=== PATIENT | male | born 1960 | race Caucasian/White ===

== ENCOUNTER → 2016-12-13 | Outpatient (CLI) | payer OTHER ==
[2016-12-13 11:59] LABS: BASO % 0.9 %; BASO ABS # 0.07 K/uL (0-0.2); COMPLETE YES; EOS % 2.4 %; HEMATOCRIT 45.8 % (42-52); IG% 0.7 %; LYMPH % 29.4 %; LYMPH ABS # 2.37 K/uL (1.2-3.4); MEAN CELL VOLUME 82.8 fL (80-100); MEAN CORPUSCULAR HEMOGLOBIN 28.8 pg (25-34); MEAN CORPUSCULAR HGB CONC 34.7 g/dl (32-36); MEAN PLATELET VOLUME 10.1 fL (7.4-10.4); MONO % 8.4 %; NEUT % 58.2 %; PLATELET COUNT 192 K/uL (130-400); RED BLOOD COUNT 5.53 M/uL (4.7-6.1); WHITE BLOOD COUNT 8.06 K/uL (4.8-10.8)
[2016-12-13 12:13] LABS: ALT/SGPT 22 U/L (12-78); AST/SGOT 13 U/L (15-37); BLOOD UREA NITROGEN 29 mg/dl (7-18); BUN/CREATININE RATIO 26.1 (10-20); CALCIUM 8.8 mg/dl (8.5-10.1); CARBON DIOXIDE 23 mmol/L (21-32); CHLORIDE 111 mmol/L (98-107); GLUCOSE 131 mg/dl (70-99); POTASSIUM 4.1 mmol/L (3.5-5.1); SODIUM 140 mmol/L (136-145)
[2016-12-13 12:27] LABS: ALB/GLOB RATIO 1.4 (0.9-2); ALKALINE PHOSPHATASE 66 U/L (45-117); CHOLESTEROL 96 mg/dl (0-200); CHOLESTEROL/HDL RATIO 2.2; FREE PSA 0.11 ng/ml; HDL CHOLESTEROL 44 mg/dl; LDL CHOLESTEROL CALCULATED 38 mg/dl; PROSTATE SPECIFIC ANTIGEN 0.844 ng/ml (0.000-4.000); TRIGLYCERIDES 69 mg/dl (0-150); VERY LOW DENSITY LIPOPROT CALC 14 mg/dl
[2016-12-13 13:00] LABS: ESTIMATED AVERAGE GLUCOSE 134 mg/dl; HA1C FLAG Normal (Normal)
[2016-12-15 23:27] LABS: APOLIPOPROTEIN B/A1 RATIO 0.38
== END | disposition home or self-care (01) ==
LOC: C.LAB 10:53
PROVIDERS: ATTEND Family Medicine
DX: Z00.00 Encounter for general adult medical examination without abnormal findings (principal)

== ENCOUNTER → 2016-12-21 | Outpatient (CLI) | payer OTHER ==
[2016-12-25 20:54] LABS: QUANTIF TB AG-NIL <0.00 IU/ML; QUANTIFERON NIL 0.02 IU/ML
--- NOTE | 2017-02-02 09:00 | CODING QUERY NO DIAGNOSIS ---
TREATMENT RENDERED WITHOUT A DIAGNOSIS To promote full compliance with coding requirements relating to patient care, physician participation is requested in all cases of cpc coder uncertainty. Please assist us with providing a diagnosis/symptom for the test(s) below: A diagnosis/symptom was not documented on your Order. A valid diagnosis/symptom is required to bill all insurances. Please remember that we are unable to code a diagnosis of rule out, probable, possible, questionable, or suspected. Tests that require a diagnosis: * QUANTIFRON TB GOLD DIAGNOSIS: Provider Signature: Date: Thank you Sarah Van Buren [employer] Once completed, please kindly fax back to [phone] For questions please call [phone]
== END | disposition home or self-care (01) ==
LOC: C.LAB 11:10
PROVIDERS: ATTEND Family Medicine
DX: Z11.1 Encounter for screening for respiratory tuberculosis (principal)

== ENCOUNTER → 2017-08-07 | Day surgery (SDC) | payer OTHER ==
[2017-08-02 09:47] VITALS: Ht 167.6 cm; Wt 81.4 kg
[~2017-08-07] VITALS: Ht 167.6 cm; Wt 81.4 kg
[~2017-08-07] MED LIST: ACET325T96 PO; ATROPINE SULFATE 0.1 MG/ML 5ML SYR IV PRN; EpHEDrine SULFATE INJ 50 MG/ML AMP IV PRN; LIDOCAINE HCL 2% 2 ML VIAL (20MG/ML) ONE; PROP20TA67 PO; PROPOFOL IV EMULSION 10 MG/ML 20 ML VIAL IV ONE; SODIUM CHLORIDE 0.9% 500ML 500 ML IV ONE
--- NOTE | 2017-08-07 08:36 | Endo History and Physical ---
History & Physical Date of Service: Aug 07, 2017. Chief Complaint: history of polyps,family history of colon cancer Referring Physician: Dr. Georgia Silvestre History of Present Illness History of polyps, family history of colorectal cancer Past Surgical History Hx Cardiac Surgery: No Hx Internal Defibrillator: No Hx Pacemaker: No Hx Abdominal Surgery: No Hx of Implantable Prosthesis: No Hx Post-Op Nausea and Vomiting: No Hx Cancer Surgery: No Hx Thoracic Surgery: No Hx Orthopedic: Yes (RT KNEE SURGERY X 2) Hx Urinary Tract Surgery: No Family History Colon CA Social History Smoking Status: Former Smoker Hx Substance Use: Yes (MARIJUANA OCCASIONALLY ) Hx Alcohol Use: Yes (RARELY "USED TO DRINK HEAVILY IN PAST") Allergies Coded Allergies: No Known Allergies (Verified , 08/07/17) Current Medications Reported Home Medications Medications Dose Route/Sig Max Daily Dose Days Date Category Inderal (Propranolol HCl) 20 Mg Tab 20 Mg PO BID 08/07/17 Reported Tylenol (Acetaminophen) 325 Mg Tab 650 Mg PO DIRECTED PRN 08/02/17 Reported Vital Signs Weight (Kilograms): 81.36 Height (Feet): 5 Height (Inches): 6 Date Time Temp Pulse Resp B/P (MAP) Pulse Ox O2 Delivery O2 Flow Rate FiO2 08/07/17 08:20 36.8 78 20 183/75 (111) 97 Room Air Physical Exam General Appearance: WD/WN, no apparent distress Respiratory/Chest: Auscultation: breath sounds normal, no wheezing Cardiovascular: Heart Auscultation: RRR, no murmurs Assessment and Plan Surveillance colonoscopy today
--- NOTE | 2017-08-07 09:14 | GI REPORT ---
Procedure Date: 08/07/2017 8:44 AM Procedure: Colonoscopy Indications: High risk colon cancer surveillance: Personal history of multiple (3 or more) adenomas, Family history of colon cancer in a first-degree relative Medicines: Monitored Anesthesia Care Complications: No immediate complications. Estimated blood loss: None. Estimated Blood Loss: Estimated blood loss: none. Procedure: Pre-Anesthesia Assessment: - Prior to the procedure, a History and Physical was performed, and patient medications, allergies and sensitivities were reviewed. The patient's tolerance of previous anesthesia was reviewed. - ASA Grade Assessment: IV - A patient with severe systemic disease that is a constant threat to life. After I obtained informed consent, the scope was passed under direct vision. Throughout the procedure, the patient's blood pressure, pulse, and oxygen saturations were monitored continuously. The scope was introduced through the anus and advanced to the terminal ileum, with identification of the appendiceal orifice and IC valve. The colonoscopy was performed with ease. The patient tolerated the procedure well. The quality of the bowel preparation was excellent. The bowel preparation used was split dose MIralax. Findings: A 3 mm polyp was found in the ascending colon. The polyp was sessile. The polyp was removed with a cold snare. Resection and retrieval were complete. A 1 mm polyp was found in the sigmoid colon. The polyp was sessile. The polyp was removed with a cold snare. Resection and retrieval were complete. Internal hemorrhoids were found during retroflexion. The hemorrhoids were medium-sized. Verification of patient identification for the specimens was done by the physician and nurse using the patient's name, date and medical record number. Impression: - One 3 mm polyp in the ascending colon, removed with a cold snare. Resected and retrieved. - One 1 mm polyp in the sigmoid colon, removed with a cold snare. Resected and retrieved. - Internal hemorrhoids. - The colon was otherwise normal to the terminal ileum with retroflexed views of the colon and terminal ileum. Recommendation: - Repeat colonoscopy in 3 - 5 years for surveillance based on pathology results. Laith Ramirez M.D. Laith Ramirez MD 08/07/2017 9:13:54 AM This report has been signed electronically. Note Initiated On: 08/07/2017 8:44 AM I attest to the content of the Intraoperative Record and orders documented therein, exceptions below
--- NOTE | 2017-08-07 09:15 | Discharge Instructions ---
Endoscopy Patient Instructions Date / Procedure(s) Performed Aug 07, 2017. Colonoscopy Allergy Information Coded Allergies: No Known Allergies (Verified , 08/07/17) Discharge Date / Findings Aug 07, 2017. Two small polyps removed; internal hemorrhoids Medication Instructions Restart Stopped Medication(s): Restart all medications today Provider Instructions Activity Restrictions - No exercising or heavy lifting for 24 hours. - Do not drink alcohol the day of the procedure. - Do not drive a car or operate machinery until the day after the procedure. - Do not make any important decisions or sign important papers in 24 hours after the procedure. Following Day: - Return to full activity which may include returning to work/school. Diet Start your diet with liquids and light foods (jello, soup, juice, toast). Then eat your usual diet if not nauseated. Treatment For Common After Affects For mild abdominal pain, bloating, or excessive gas: - Rest - Eat lightly - Lie on right side Follow-Up Information Follow-up with Dr. Georgia Silvestre as scheduled Anesthesia Information What You Should Know You have had a procedure that required some medicine to reduce anxiety and discomfort. This treatment is called moderate sedation. After receiving the treatment, you may be sleepy, but you will be able to breathe on your own. The effects of the treatment may last for several hours. Follow these instructions along with Activity/Diet recommendations noted above: * Do NOT do anything where dizziness or clumsiness would be dangerous. * Rest quietly at home today, then you can be up and about tomorrow. * Have a responsible person stay with you the rest of today. * You may have had an I.V. today. If so, you may take the dressing off later today. Recommendations Call your doctor if: * Trouble breathing * Continuous vomiting for more than 24 hours * Temperature above 101 degrees * Severe abdominal pain or bloating * Pain not relieved by pain medicine ordered * There is increased drainage or redness from any incision * A large amount of rectal bleeding greater than 2-3 tablespoons. (If you had a polyp/s removed or have hemorrhoids, a small amount of blood - from the rectum is to be expected.) * You have any unanswered questions or concerns. IN THE EVENT OF A SERIOUS EMERGENCY, GO TO THE NEAREST EMERGENCY ROOM Your discharge instructions were prepared by provider Laith Ramirez. Patient Instructions Signature Page Doug Mckinney Patient (or Guardian) Signature/Date: I have read and understand the instructions given to me by my caregivers. Caregiver/RN/Doctor Signature/Date: The above-named patient and/or guardian has received patient instructions on this date. + Original Patient Signature Page (only) stays with chart. Please make copy for patient.
--- NOTE | 2017-08-07 09:32 | Anesthesiology Progress Note ---
Anesthesia Post Op Note Date & Time Aug 07, 2017 at 09:32 Vital Signs Pain Intensity: 0 Vital Signs Past 12 Hours Date Time Temp Pulse Resp B/P (MAP) Pulse Ox O2 Delivery O2 Flow Rate FiO2 08/07/17 09:29 73 18 162/81 (108) 100 Room Air 08/07/17 09:14 70 16 125/63 (83) 96 Room Air 08/07/17 08:20 36.8 78 20 183/75 (111) 97 Room Air Notes Mental Status: alert / awake / arousable, participated in evaluation Pt Amnestic to Procedure: Yes Nausea / Vomiting: adequately controlled Pain: adequately controlled Airway Patency, RR, SpO2: stable & adequate BP & HR: stable & adequate Hydration State: stable & adequate Anesthetic Complications: no major complications apparent
[2017-08-07 09:45] VITALS: BP 172/84; PULSE 67; O2SAT 96
== END | disposition home or self-care (01) ==
LOC: C.GI 08:02
PROVIDERS: ATTEND Internal Medicine Gastroenterology
DX: Z12.11 Encounter for screening for malignant neoplasm of colon (principal); D12.2 Benign neoplasm of ascending colon; D12.5 Benign neoplasm of sigmoid colon; K64.8 Other hemorrhoids; Z86.010 Personal history of colon polyps; I10 Essential (primary) hypertension; J45.909 Unspecified asthma, uncomplicated; K21.9 Gastro-esophageal reflux disease without esophagitis; F12.10 Cannabis abuse, uncomplicated; E11.9 Type 2 diabetes mellitus without complications; M19.90 Unspecified osteoarthritis, unspecified site; Z80.0 Family history of malignant neoplasm of digestive organs

== ENCOUNTER → 2017-09-26 | Outpatient (CLI) | payer OTHER ==
[~2017-09-26] MED LIST changes: +ACET-1693 PO; -ACET325T96 PO; -ATROPINE SULFATE 0.1 MG/ML 5ML SYR IV PRN; -EpHEDrine SULFATE INJ 50 MG/ML AMP IV PRN; -LIDOCAINE HCL 2% 2 ML VIAL (20MG/ML) ONE; -PROPOFOL IV EMULSION 10 MG/ML 20 ML VIAL IV ONE; -SODIUM CHLORIDE 0.9% 500ML 500 ML IV ONE
[2017-09-26 13:10] LABS: BASO % 0.8 %; BASO ABS # 0.07 K/uL (0-0.2); EOS % 2.4 %; HEMATOCRIT 40.2 % (42-52); HEMOGLOBIN 14.2 g/dL (14.0-18.0); IG# 0.04 K/uL (0.00-0.02); LYMPH % 31.7 %; LYMPH ABS # 2.66 K/uL (1.2-3.4); MEAN CELL VOLUME 84.8 fL (80-100); MEAN CORPUSCULAR HGB CONC 35.3 g/dl (32-36); MEAN PLATELET VOLUME 9.4 fL (7.4-10.4); MONO % 6.2 %; MONO ABS # 0.52 K/uL (0.11-0.59); NEUT % 58.4 %; NEUT ABS # 4.89 K/uL (1.4-6.5); PLATELET COUNT 192 K/uL (130-400); RED CELL DISTRIBUTION WIDTH CV 14.5 % (11.5-14.5); RED CELL DISTRIBUTION WIDTH SD 45.2 fL (36.4-46.3); WHITE BLOOD COUNT 8.38 K/uL (4.8-10.8)
[2017-09-26 14:13] LABS: ALBUMIN 3.6 gm/dl (3.4-5.0); ALT/SGPT 18 U/L (12-78); BLOOD UREA NITROGEN 12 mg/dl (7-18); CALCIUM 9.1 mg/dl (8.5-10.1); CARBON DIOXIDE 27 mmol/L (21-32); CREATININE 1.03 mg/dl (0.60-1.40); GLUCOSE 117 mg/dl (70-99); POTASSIUM 4.4 mmol/L (3.5-5.1); SODIUM 138 mmol/L (136-145)
[2017-09-26 14:15] LABS: ALKALINE PHOSPHATASE 51 U/L (45-117); AST/SGOT 10 U/L (15-37)
== END | disposition home or self-care (01) ==
LOC: C.LABBC 10:59
PROVIDERS: ATTEND Family Medicine
DX: E80.7 Disorder of bilirubin metabolism, unspecified (principal)

== ENCOUNTER → 2017-11-15 | Outpatient (CLI) | payer OTHER ==
--- NOTE | 2017-11-15 08:10 | DIAGNOSTIC IMAGING REPORT ---
ABDOMINAL ULTRASOUND, RIGHT UPPER QUADRANT HISTORY: Right upper quadrant abdominal tenderness.. COMPARISON: None. FINDINGS: Pancreas: The pancreatic tail is obscured by overlying bowel gas. The remaining portions of the pancreas are within normal limits. Liver: Unremarkable. Gallbladder: No gallbladder wall thickening. No gallstones. There is a 6 mm nodule adherent to the wall the gallbladder consistent with a polyp. CBD: 6 mm. Right kidney: No hydronephrosis. There appears to be a duplicated right renal collecting system. IMPRESSION: 1. A 6 mm gallbladder polyp. No gallbladder wall thickening. No gallstones. 2. Duplicated right renal collecting system. Electronically signed by: Rock Stevenson M.D. 11/15/2017 8:09 AM Dictated Date/Time: 11/15/2017 8:05 AM
== END | disposition home or self-care (01) ==
LOC: C.ULTR 07:34
PROVIDERS: ATTEND Family Medicine
DX: K82.4 Cholesterolosis of gallbladder (principal); Q55.8 Other specified congenital malformations of male genital organs

== ENCOUNTER → 2017-12-05 | Outpatient (CLI) | payer OTHER ==
[~2017-12-05] MED LIST changes: +OPTIRAY 320 IV PRN
--- NOTE | 2017-12-05 10:45 | DIAGNOSTIC IMAGING REPORT ---
ABDOMEN AND PELVIS CT WITH IV AND ORAL CONTRAST CT DOSE: 600.90 mGycm HISTORY: Acute right upper quadrant abdominal pain RUQ ABDOMINAL PAIN TECHNIQUE: Multiaxial CT images of the abdomen and pelvis were performed following the use of intravenous and oral contrast. A dose lowering technique was utilized adhering to the principles of ALARA. COMPARISON STUDY: Abdominal ultrasound 11/15/2017. FINDINGS: Mild dependent subsegmental bibasilar atelectasis with mild bibasilar bronchial wall thickening. Lung bases otherwise appear clear. No pneumatosis or pneumoperitoneum. Coronary arterial calcifications are noted. The imaged inferior cardiac chambers are otherwise unremarkable. The liver, spleen, gallbladder, pancreas and adrenal glands are within normal limits. Low attenuating lesions of the kidneys bilaterally measuring up to 1.7 cm within the inferior pole left kidney suggests renal cyst. No renal calculi or obstructive uropathy. Mild wall thickening of the bladder with trace free pelvic fluid. The prostate appears mildly enlarged. Moderate atherosclerosis of the aorta without aneurysm. No bulky adenopathy. Iliac vessels appear unremarkable. There is no bowel obstruction or focal bowel wall thickening identified. Mild circumferential rectal wall thickening with nondistention involving the descending colon and sigmoid. Normal appendix. Soft tissues are unremarkable. Degenerative changes of the bilateral SI joints, thoracic lumbar spine. IMPRESSION: 1. No acute intra-abdominal or intrapelvic abnormality identified. 2. Suggestion of mild rectal wall thickening, possibly secondary to partial distention or mild proctitis. 3. Mild wall thickening of the bladder, possibly reflecting cystitis. Correlate with urinalysis. 4. Trace free pelvic fluid of unknown etiology. 5. Normal appendix. Electronically signed by: Maurice June M.D. 12/05/2017 10:43 AM Dictated Date/Time: 12/05/2017 10:34 AM
== END | disposition home or self-care (01) ==
LOC: C.CTS 09:40
PROVIDERS: ATTEND Family Medicine
DX: R10.9 Unspecified abdominal pain (principal)

== ENCOUNTER 2020-04-20 05:54 | Inpatient (IN) ==
[2020-04-20 06:27] LABS: Basophils # (auto) 0.09 K/uL (0-0.2); Basophils % (auto) 1.2 %; Eosinophils # (auto) 0.15 K/uL (0-0.5); Hematocrit (blood only) 45.2 % (42-52); Hemoglobin 15.7 g/dL (14.0-18.0); Immature Granulocytes # (auto) 0.13 K/uL (0.00-0.02); Immature Granulocytes % (auto) 1.8 %; Lymphocytes # (auto) 3.56 K/uL (1.2-3.4); Mean Corpuscular Hemoglobin 31.2 pg (25-34); Mean Corpuscular Hgb Conc 34.7 g/dL (32-36); Mean Corpuscular Volume 89.9 fL (80-100); Mean Platelet Volume 8.9 fL (7.4-10.4); Monocytes # (auto) 0.54 K/uL (0.11-0.59); Monocytes % (auto) 7.3 %; Neutrophils # (auto) 2.95 K/uL (1.4-6.5); Neutrophils % (auto) 39.7 %; Platelet Count 175 K/uL (130-400); RDW Standard Deviation 52.3 fL (36.4-46.3); Red Blood Count 5.03 M/uL (4.7-6.1); White Blood Count 7.42 K/uL (4.8-10.8)
[2020-04-20 06:29] LABS: Appearance Urine Clear (Clear); Bacteria Urine Automated Negative (Negative); Bilirubin Urine Negative (Negative); Blood Urine Negative (Negative); Cast Urine Automated 0 /lpf (0-5); Color Urine Yellow; Glucose Urine UA Trace (Negative); Ketones Urine Negative (Negative); Leukocyte Esterase Urine Negative (Negative); Nitrite Urine Negative (Negative); Protein Urine Trace (Negative); RBC Urine Automated 0-4 /hpf (0-4); Specific Gravity Urine 1.013 (1.000-1.030); Urobilinogen Urine Negative (Negative); WBC Urine Automated 0 /hpf (0-5); pH Urine 5.5 (4.5-7.5)
[2020-04-20 06:44] LABS: Albumin Level 3.9 gm/dl (3.4-5.0); BUN Creatinine Ratio 11.6 (10-20); Creatinine Clr Calc Pharmacy 74.8 ml/min; Est GFR (African American) 97.3; Est GFR (Non-African American) 83.9; Potassium 3.8 mmol/L (3.5-5.1)
[2020-04-20 06:49] LABS: Amphetamines+Metham, Urine Neg (Neg); Barbiturates, Urine Neg (Neg); Benzodiazepine, Urine Neg (Neg); Cocaine, Urine Neg (Neg); MDMA (Ecstacy), Urine Neg (Neg); Methadone, Urine Neg (Neg); Opiate, Urine Neg (Neg); Phencyclidine, Urine Neg (Neg)
[2020-04-20] MEDS ORDERED: hydroCHLOROthiazide 25 MG TAB PO STA (06:50)
[2020-04-20] MEDS ORDERED: ATENOLOL 50 MG TABLET PO ONE (06:50)
[2020-04-20] MEDS ORDERED: lisinopriL 40 MG TAB PO STA ×2 (06:50→15:53)
[2020-04-20] MEDS ORDERED: SERTRALINE HCL 50 MG TABLET PO ONE (06:50)
[2020-04-20 06:54] LABS: Albumin Globulin Ratio 1.1 (0.9-2); Bilirubin,Total 0.6 mg/dl (0.2-1); Globulin 3.7 gm/dl (2.5-4.0); Thyroid Stimulating Hormone 1.03 uIu/ml (0.300-4.500); Total Protein 7.6 gm/dl (6.4-8.2)
[2020-04-20] MEDS ORDERED: cloNIDine HCL 0.3 MG/24 HR TRANSDERM SYS TD STA (07:16)
--- NOTE | 2020-04-20 07:19 | Emergency Department Note ---
History of Present Illness General Chief complaint: Mental Health Evaluation Stated complaint: MENTAL HEALTH Time Seen by Provider: 04/20/20 06:26 Source: patient, RN notes reviewed, old records reviewed and police Mode of arrival: other (police) Limitations: intoxication History of Present Illness Provider complaint: Suicidal Onset (ago): hour(s) 3 Maximum Pain Intensity: 0 This is a 59-year-old male who presents emergency department complaining of feeling suicidal. The patient reports he had a plan to cut himself with knives. He admits to drinking [employer] [place] last evening. Patient reports he was admitted to [facility] in January however has not continued to take his antidepressant and has not had a follow-up with a therapist. Upon arrival to the emergency department the patient denies being suicidal anymore. He does admit to drinking. Home Medications Home Medications Medication Instructions Recorded Confirmed Type lisinopril 40 mg PO DAILY 02/09/20 04/20/20 History atenolol 50 mg PO DAILY 02/10/20 04/20/20 History hydrochlorothiazide 25 mg PO DAILY 02/10/20 04/20/20 History metformin 1,000 mg PO BID 02/10/20 04/20/20 History sertraline 25 mg PO DAILY 04/20/20 04/20/20 History trazodone 100 mg PO HS 04/20/20 04/20/20 History Allergies Allergy/AdvReac Type Severity Reaction Status Date / Time No Known Allergies Allergy Verified 04/20/20 06:48 Past Med/Surg History Medical History (Updated 04/20/20 @ 15:10 by Annabelle Champion PA-C) Depression with anxiety Diabetes HLD (hyperlipidemia) Hypertension Surgical History (Updated 04/20/20 @ 15:05 by Annabelle Champion PA-C) History of colonoscopy History of right knee surgery x 2 secondary to patellar dislocation Family History Mother , 41 Pulmonary embolism Father Colorectal cancer Alzheimer disease Social History (Updated 04/20/20 @ 15:08 by Annabelle Champion PA-C) Smoking Status: Current every day smoker Tobacco Type: Cigarettes packs per day: 1; Years Smoked: 25; Hx Alcohol Use: Yes Hx Substance Use: Yes Non-Prescribed Medications: Marijuana Last Used Substance: Days (ago) Last Used Substance Other:: 1 Preferred Language: Macedonian Communication Ability: Effective marital status: Current Living Situation: Alone Feels Safe at Home: Yes Review of Systems A total of 10 systems reviewed and were otherwise negative Physical Exam Vital Signs Vital Signs - 24 hr 04/20/20 05:59 04/20/20 08:02 04/20/20 13:07 Temperature 36.8 C Temperature Source Oral Pulse Rate 96 H Pulse Rate [Finger] 100 H 94 H Respiratory Rate 20 20 17 Blood Pressure 141/90 H Blood Pressure [Left Arm] 152/85 H 149/87 H Blood Pressure Mean 107 Blood Pressure Mean [Left Arm] 107 107 Pulse Oximetry 97 97 97 Oxygen Delivery Method Room Air Room Air Room Air Sepsis Recent Fever Within 48 Hours No Sepsis New/Unexplained Change in Mental Status No Sepsis Action Taken by Nursing No Action Required 04/20/20 14:57 Temperature Temperature Source Pulse Rate 90 Pulse Rate [Finger] Respiratory Rate 18 Blood Pressure 140/78 Blood Pressure [Left Arm] Blood Pressure Mean Blood Pressure Mean [Left Arm] Pulse Oximetry 97 Oxygen Delivery Method Room Air Sepsis Recent Fever Within 48 Hours Sepsis New/Unexplained Change in Mental Status Sepsis Action Taken by Nursing VITAL SIGNS - Vital signs and nursing notes were reviewed. GENERAL - 59-year-old male appearing stated age who is in no acute distress. Communicates well with provider and answers questions appropriately. SKIN - Without rashes. HEAD - NC/AT. EYES - PERRL with EOMI bilaterally. Sclera anicteric. Palpebral conjunctiva pink and moist with no injection noted. EARS - No deformities of external structures noted on gross examination bilaterally. No pain elicited with palpation of the tragus bilaterally. External auditory canals without discharge or otorrhea. Tympanic membranes pearly james without retraction or bulging. No fluid or purulent material visualized behind the TM. Handle of malleus, umbo, cone of light, pars tensa/flaccid all easily visualized. NOSE - Midline and without cyanosis. No epistaxis or purulent drainage noted. Septum midline without deviation or septal hematoma noted. MOUTH/OROPHARYNX - Without perioral cyanosis. Buccal mucosa pink and moist and without leukoplakia. Tongue midline with equal elevation of palate bilaterally. No tonsillar hypertrophy, erythema, or exudates noted. dentition noted. NECK - Neck with FROM. Supple to palpation. lymphadenopathy noted. No nuchal rigidity. LUNGS - Chest wall symmetric without accessory muscle use, intercostals retractions, or central cyanosis. Normal vesicular breath sounds CTA B/L. No wheezes, rales, or rhonchi appreciated. CARDIAC - RRR with S1/S2. No murmur, rubs, or gallops appreciated. ABDOMEN - Abdominal contour without pulsations or visible masses. BS normoactive all four quadrants. No tenderness, palpable masses, hepatosplenomegaly, or ascites noted. EXTREMITIES - No clubbing or peripheral cyanosis. No pretibial edema present. +3/5 radial, posterior tibial, and dorsalis pedis pulses palpated throughout. +5/5 strength noted in UE/LE bilaterally. NEUROLOGIC - Cranial nerves II through XII grossly intact. Sensory intact to light touch throughout. Patellar reflexes +2/4. PSYCH - A&Ox3 and cooperates fully with examiner. Pt is very pleasant and interacts well with examiner. Course Administered Medications Metformin HCl (Metformin Hcl 500 Mg Tab) 1,000 mg PO BIDM MEENA Stop: 05/20/20 07:59 Last Admin: 04/20/20 08:00 Dose: 1,000 mg Documented by: [id number] Miscellaneous (Check Clonidine Patch Placement) 1 ea N/A QS MEENA Stop: 05/20/20 07:59 Last Admin: 04/20/20 08:39 Dose: 1 ea Documented by: [id number] Discontinued Medications Clonidine HCl (Clonidine Hcl 0.3 Mg/24 Hr Transderm Sys) 1 patch TD CQWK STA Stop: 04/20/20 07:17 Last Admin: 04/20/20 08:00 Dose: 1 patch Documented by: [id number] Multivitamins 10 ml/ Thiamine HCl 100 mg/ Folic Acid 1 mg/Sodium Chloride 1,011.2 mls @ 1,011.2 mls/hr IV .Q1H ONE Stop: 04/20/20 14:50 Last Admin: 04/20/20 14:32 Dose: 1,011.2 mls/hr Documented by: [id number] Lorazepam (Ativan) 1 mg in 2 mls @ 2 mls/min IV NOW STA Stop: 04/20/20 14:03 Last Admin: 04/20/20 14:08 Dose: 2 mls/min Documented by: [id number] Ondansetron HCl (Ondansetron Inj 2 Mg/Ml 2 Ml Vial) 4 mg IV NOW STA Stop: 04/20/20 13:53 Last Admin: 04/20/20 14:08 Dose: 4 mg Documented by: [id number] Sertraline HCl (Sertraline Hcl 50 Mg Tablet) 25 mg PO NOW ONE Stop: 04/20/20 06:51 Last Admin: 04/20/20 08:31 Dose: 25 mg Documented by: [id number] Critical Care Time I have personally spent greater than 30 minutes of critical care time in the direct management of this patient. This includes bedside care, interpretation of diagnostic studies, and testing, discussion with consultants, patient, and family members, and other required patient management activities. This 30 minutes is in excess of all separately billable procedures. Medical Decision Making Differential Diagnosis Mood disorder, infection, hypoglycemia, electrolyte abnormalities, cardiac sources, intracerebral event, toxicologic, trauma, neurologic, as well as other pathologies. Medical Records Attestation: I reviewed the patient's medical records. Home Medications Current Medication List: was personally reviewed by me Laboratory Data Attestation: I reviewed the patient's lab results. Result diagrams: 04/20/20 06:11 04/20/20 06:11 Lab Results 04/20/20 04/20/20 04/20/20 Range/Units 06:08 06:08 06:11 WBC 7.42 (4.8-10.8) K/uL RBC 5.03 (4.7-6.1) M/uL Hgb 15.7 (14.0-18.0) g/dL Hct 45.2 (42-52) % MCV 89.9 (80-100) fL MCH 31.2 (25-34) pg MCHC 34.7 (32-36) g/dL RDW Std Deviation 52.3 H (36.4-46.3) fL RDW Coeff of Lindy 16.0 H (11.5-14.5) % Plt Count 175 (130-400) K/uL MPV 8.9 (7.4-10.4) fL Immature Gran % (Auto) 1.8 % Neut % (Auto) 39.7 % Lymph % (Auto) 48.0 % [place] % (Auto) 7.3 % Eos % (Auto) 2.0 % Baso % (Auto) 1.2 % Neut # (Auto) 2.95 (1.4-6.5) K/uL Lymph # (Auto) 3.56 H (1.2-3.4) K/uL [place] # (Auto) 0.54 (0.11-0.59) K/uL Eos # (Auto) 0.15 (0-0.5) K/uL Baso # (Auto) 0.09 (0-0.2) K/uL Immature Gran # (Auto) 0.13 H (0.00-0.02) K/uL Sodium (136-145) mmol/L Potassium (3.5-5.1) mmol/L Chloride (98-107) mmol/L Carbon Dioxide (21-32) mmol/L Anion Gap (3-11) BUN (7-18) mg/dl Creatinine (0.6-1.4) mg/dl Est Cr Clr Drug Dosing ml/min Est GFR ( Amer) Est GFR (Non-Af Amer) BUN/Creatinine Ratio (10-20) Glucose (70-99) mg/dl POC Glucose (70-99) mg/dl Calcium (8.5-10.1) mg/dl Total Bilirubin (0.2-1) mg/dl AST (15-37) U/L ALT (12-78) U/L Alkaline Phosphatase (45-117) U/L Total Protein (6.4-8.2) gm/dl Albumin (3.4-5.0) gm/dl Globulin (2.5-4.0) gm/dl Albumin/Globulin Ratio (0.9-2) TSH (0.300-4.500) uIu/ml Urine Color Yellow Urine Appearance Clear (Clear) Urine pH 5.5 (4.5-7.5) Ur Specific [place] 1.013 (1.000-1.030) Urine Protein Trace H (Negative) Urine Glucose (UA) Trace H (Negative) Urine Ketones Negative (Negative) Urine Blood Negative (Negative) Urine Nitrite Negative (Negative) Urine Bilirubin Negative (Negative) Urine Urobilinogen Negative (Negative) Ur Leukocyte Esterase Negative (Negative) Urine WBC (Auto) 0 (0-5) /hpf Urine RBC (Auto) 0-4 (0-4) /hpf U Hyaline Cast (Auto) 0 (0-5) /lpf U Epithel Cells (Auto) 5-10 H (0-5) /lpf Urine Bacteria (Auto) Negative (Negative) Salicylates (2.8-20) mg/dl Urine Opiates Screen Neg (Neg) Ur Methadone, Qual Neg (Neg) Acetaminophen (10-30) ug/ml Urine Barbiturates Neg (Neg) Ur Phencyclidine (PCP) Neg (Neg) U Amphetamin/Meth Scrn Neg (Neg) MDMA (Ecstasy) Screen Neg (Neg) U Benzodiazepines Scrn Neg (Neg) Ur Cocaine Metabolite Neg (Neg) U Marijuana (THC) Screen Pos H (Neg) Ethyl Alcohol mg/dL (0-3) mg/dl COVID-19 Eval Order SARS-CoV-2, RNA, NAAT (NEGATIVE) 04/20/20 04/20/20 04/20/20 Range/Units 06:11 06:11 06:11 WBC (4.8-10.8) K/uL RBC (4.7-6.1) M/uL Hgb (14.0-18.0) g/dL Hct (42-52) % MCV (80-100) fL MCH (25-34) pg MCHC (32-36) g/dL RDW Std Deviation (36.4-46.3) fL RDW Coeff of Lindy (11.5-14.5) % Plt Count (130-400) K/uL MPV (7.4-10.4) fL Immature Gran % (Auto) % Neut % (Auto) % Lymph % (Auto) % [place] % (Auto) % Eos % (Auto) % Baso % (Auto) % Neut # (Auto) (1.4-6.5) K/uL Lymph # (Auto) (1.2-3.4) K/uL [place] # (Auto) (0.11-0.59) K/uL Eos # (Auto) (0-0.5) K/uL Baso # (Auto) (0-0.2) K/uL Immature Gran # (Auto) (0.00-0.02) K/uL Sodium 144 (136-145) mmol/L Potassium 3.8 (3.5-5.1) mmol/L Chloride 109 H (98-107) mmol/L Carbon Dioxide 24 (21-32) mmol/L Anion Gap 10.0 (3-11) BUN 11 (7-18) mg/dl Creatinine 0.97 (0.6-1.4) mg/dl Est Cr Clr Drug Dosing 74.8 ml/min Est GFR ( Amer) 97.3 Est GFR (Non-Af Amer) 83.9 BUN/Creatinine Ratio 11.6 (10-20) Glucose 163 H (70-99) mg/dl POC Glucose (70-99) mg/dl Calcium 8.0 L (8.5-10.1) mg/dl Total Bilirubin 0.6 (0.2-1) mg/dl AST 18 (15-37) U/L ALT 22 (12-78) U/L Alkaline Phosphatase 70 (45-117) U/L Total Protein 7.6 (6.4-8.2) gm/dl Albumin 3.9 (3.4-5.0) gm/dl Globulin 3.7 (2.5-4.0) gm/dl Albumin/Globulin Ratio 1.1 (0.9-2) TSH 1.030 (0.300-4.500) uIu/ml Urine Color Urine Appearance (Clear) Urine pH (4.5-7.5) Ur Specific [place] (1.000-1.030) Urine Protein (Negative) Urine Glucose (UA) (Negative) Urine Ketones (Negative) Urine Blood (Negative) Urine Nitrite (Negative) Urine Bilirubin (Negative) Urine Urobilinogen (Negative) Ur Leukocyte Esterase (Negative) Urine WBC (Auto) (0-5) /hpf Urine RBC (Auto) (0-4) /hpf U Hyaline Cast (Auto) (0-5) /lpf U Epithel Cells (Auto) (0-5) /lpf Urine Bacteria (Auto) (Negative) Salicylates 3.7 (2.8-20) mg/dl Urine Opiates Screen (Neg) Ur Methadone, Qual (Neg) Acetaminophen < 2 L (10-30) ug/ml Urine Barbiturates (Neg) Ur Phencyclidine (PCP) (Neg) U Amphetamin/Meth Scrn (Neg) MDMA (Ecstasy) Screen (Neg) U Benzodiazepines Scrn (Neg) Ur Cocaine Metabolite (Neg) U Marijuana (THC) Screen (Neg) Ethyl Alcohol mg/dL 304.4 H (0-3) mg/dl COVID-19 Eval Order SARS-CoV-2, RNA, NAAT (NEGATIVE) 04/20/20 04/20/20 04/20/20 Range/Units 08:02 08:02 14:06 WBC (4.8-10.8) K/uL RBC (4.7-6.1) M/uL Hgb (14.0-18.0) g/dL Hct (42-52) % MCV (80-100) fL MCH (25-34) pg MCHC (32-36) g/dL RDW Std Deviation (36.4-46.3) fL RDW Coeff of Lindy (11.5-14.5) % Plt Count (130-400) K/uL MPV (7.4-10.4) fL Immature Gran % (Auto) % Neut % (Auto) % Lymph % (Auto) % [place] % (Auto) % Eos % (Auto) % Baso % (Auto) % Neut # (Auto) (1.4-6.5) K/uL Lymph # (Auto) (1.2-3.4) K/uL [place] # (Auto) (0.11-0.59) K/uL Eos # (Auto) (0-0.5) K/uL Baso # (Auto) (0-0.2) K/uL Immature Gran # (Auto) (0.00-0.02) K/uL Sodium (136-145) mmol/L Potassium (3.5-5.1) mmol/L Chloride (98-107) mmol/L Carbon Dioxide (21-32) mmol/L Anion Gap (3-11) BUN (7-18) mg/dl Creatinine (0.6-1.4) mg/dl Est Cr Clr Drug Dosing ml/min Est GFR ( Amer) Est GFR (Non-Af Amer) BUN/Creatinine Ratio (10-20) Glucose (70-99) mg/dl POC Glucose 144 H (70-99) mg/dl Calcium (8.5-10.1) mg/dl Total Bilirubin (0.2-1) mg/dl AST (15-37) U/L ALT (12-78) U/L Alkaline Phosphatase (45-117) U/L Total Protein (6.4-8.2) gm/dl Albumin (3.4-5.0) gm/dl Globulin (2.5-4.0) gm/dl Albumin/Globulin Ratio (0.9-2) TSH (0.300-4.500) uIu/ml Urine Color Urine Appearance (Clear) Urine pH (4.5-7.5) Ur Specific [place] (1.000-1.030) Urine Protein (Negative) Urine Glucose (UA) (Negative) Urine Ketones (Negative) Urine Blood (Negative) Urine Nitrite (Negative) Urine Bilirubin (Negative) Urine Urobilinogen (Negative) Ur Leukocyte Esterase (Negative) Urine WBC (Auto) (0-5) /hpf Urine RBC (Auto) (0-4) /hpf U Hyaline Cast (Auto) (0-5) /lpf U Epithel Cells (Auto) (0-5) /lpf Urine Bacteria (Auto) (Negative) Salicylates (2.8-20) mg/dl Urine Opiates Screen (Neg) Ur Methadone, Qual (Neg) Acetaminophen (10-30) ug/ml Urine Barbiturates (Neg) Ur Phencyclidine (PCP) (Neg) U Amphetamin/Meth Scrn (Neg) MDMA (Ecstasy) Screen (Neg) U Benzodiazepines Scrn (Neg) Ur Cocaine Metabolite (Neg) U Marijuana (THC) Screen (Neg) Ethyl Alcohol mg/dL (0-3) mg/dl COVID-19 Eval Order Covid19 IDNow atMMDC SARS-CoV-2, RNA, NAAT NEGATIVE (NEGATIVE) MDM Narrative Patient was seen and evaluated as above in room A3. Review was performed of nursing notes and vital signs. I did review pertinent previous visits and patient history. After obtaining a thorough history and physical examination the above work up was performed. This is a 59-year-old male who presents emergency department complaining of feeling suicidal. Upon arrival to the emergency department the patient is found to be grossly intoxicated. It will be 11 hours before the patient is medically clear. He was given a clonidine patch in the meanwhile and breakfast was ordered for the patient. He immediately went to sleep. Upon my evaluation this afternoon the patient had begun vomiting and was found to be hypertensive and tachycardic. He is also extremely diaphoretic and pacing around his room. I am concerned that the patient has gone into alcohol withdrawal. He had already been given a clonidine patch therefore an IV was established and the patient was given Ativan as well as a banana bag. I did discuss the case with the hospitalist service who did agree to admit the patient. While in the department, I personally reevaluated the patient several times and each time the patient was found to be resting comfortably. The patient was educated upon management, educated upon todays findings/results, educated upon importance of follow up from today's visit, educated upon symptoms in which to return, had questions answered prior to discharge, verbalized understanding, and was discharged home in good condition. An order was placed for continuous cardiac monitoring. The monitor shows a rate of 90 with Normal SInus rhythm. The patient was evaluated during the global COVID-19 pandemic, and that diagnosis was suspected/considered upon their initial presentation. Their evaluation, treatment and testing was consistent with current guidelines for patients who present with complaints or symptoms that may be related to COVID- 19. Impression & Plan Mood disorder, Alcohol intoxication, Alcohol withdrawal Discharge Plan Visit Data Chief Complaint: Mental Health Evaluation Stated Complaint: MENTAL HEALTH ED Provider: Juan A Quesada Discharge Problem: Mood disorder, Alcohol intoxication, Alcohol withdrawal Discharge Instructions Interventions: ED Discharge Assessment Last Done: 04/20/20 14:57 Forms Stand Alone Forms: My [facility], Suicide Prevention Resources Prescriptions Prescriptions: No Action lisinopril 40 mg Tablet 40 mg PO DAILY RF: 0 metformin 1,000 mg Tablet 1,000 mg PO BID RF: 0 hydrochlorothiazide 25 mg Tablet 25 mg PO DAILY RF: 0 atenolol 50 mg Tablet 50 mg PO DAILY RF: 0 trazodone 100 mg tablet 100 mg PO HS RF: 0 sertraline 25 mg tablet 25 mg PO DAILY RF: 0 Referrals Referrals: Gary Greene MD [Primary Care Provider] -
[2020-04-20 07:23] LABS: Acetaminophen < 2 ug/ml (10-30)
[2020-04-20 07:24] LABS: Salicylate 3.7 mg/dl (2.8-20)
[2020-04-20] MEDS ORDERED: METFORMIN HCL 500 MG TAB PO SCH (08:00)
[2020-04-20] MEDS: CHECK CLONIDINE PATCH PLACEMENT SCH ×4 (08:39→23:45)
[2020-04-20] MEDS ORDERED: LORazepam 1 MG/2 ML VIAL IV PRN ×2 (13:51→15:43)
[2020-04-20] MEDS ORDERED: MULTI-VITAMIN INFUSION 10 ML, THIAMINE HCL 100 MG, FOLIC ACID 1 MG in SODIUM CHLORIDE 0... IV ONE (13:51)
[2020-04-20] MEDS ORDERED: ONDANSETRON INJ 2 MG/ML 2 ML VIAL IV STA (13:52)
[2020-04-20] MEDS ORDERED: LORazepam 1 MG/2 ML VIAL IV STA (14:02)
--- NOTE | 2020-04-20 15:00 | History & Physical Report ---
Date of Service April 20, 2020 Assessment & Plan (1) Alcohol withdrawal: This is a 59-year-old male with significant past medical history of T2DM, HTN, HLD, depression with anxiety, tobacco abuse, alcohol abuse who presents to ED via police secondary to suicidal ideation and alcohol intoxication. Admit to Tele Continue banana bag then start IVF NS 75cc/hr x 2L Gabapentin taper Prn IV ativan for with drawal sx pt has clonidine patch in place - continue daily folic acid and thiamine supplementation (2) Depression with suicidal ideation: pt states 2 to 50th anniversary of mothers was intoxicated when thinking his life was no longer valuable denies having firearms in house, but states he had kitchen knives no formal plan will consult psychiatry (3) Diabetes: last A1C 2015 6.3, obtain in a.m. hold metformin lantus/novolog per protocol (4) Hypertension: blood pressure elevated in ED, likely in setting of withdrawal continue lisinopril, atenolol hold HCTZ for now due to likely volume contraction in setting of recent alcohol intoxication (5) HLD (hyperlipidemia): continue statin (6) Depression with anxiety: pt is on zoloft and trazodone psych consulted 2/ to S.I. - although pt now denies (7) Tobacco abuse: encourage smoking cessation (8) DVT prophylaxis: SCD/TEDS Disposition: admit to tele Follow up: PCP Dr. Greene upon discharge ( pt has not seen Dr. Greene in clinic since 2018 - will need to re establish Pt was seen and examined in collaboration with Dr. Willingham, please see addendum History of Present Illness Chief Complaint: Suicidal ideations and alcohol intoxication. Primary Care Provider: Gary Greene MD This is a 59-year-old male with significant past medical history of T2DM, HTN, HLD, depression with anxiety, tobacco abuse, alcohol abuse who presents to ED via police secondary to suicidal ideation and alcohol intoxication. He states he drank 4 four ANDRWE last evening as well as smoking marijuana. He also elicits it was 50th anniversary of his mother's . This had him feeling like his life was not worth living. He states she age 41 of a massive PE. He did not have a plan to take his life. He denies having firearms in his home. The only weapon he had was, "kitchen knives." He does admit to being hospitalized in [facility] in January 2020 secondary to his depression. He does admit to drinking 8-24 ounce alcoholic beverages weekly. He also smokes 1 pack of cigarettes per day. He admits to smoking marijuana daily. He currently denies suicidal or homicidal ideation. According to nursing staff prior to admission recommendation he was experiencing symptoms of withdrawal including pacing, diaphoresis and shakiness. In ED he received IV banana bag, 1 g IV Ativan and clonidine patch which has helped withdrawal symptoms. He currently denies any fever, chills, sweats, illness, dizziness, syncope, chest pain, shortness breath, cough, nausea, vomiting, abdominal pain. He denies any change in bowel or urinary habits. His appetite is otherwise poor and states he does not eat very healthy. Allergies Allergy/AdvReac Type Severity Reaction Status Date / Time No Known Allergies Allergy Verified 04/20/20 06:48 Home Medications Home Medications Medication Instructions Recorded Confirmed Type lisinopril 40 mg PO DAILY 02/09/20 04/20/20 History atenolol 50 mg PO DAILY 02/10/20 04/20/20 History hydrochlorothiazide 25 mg PO DAILY 02/10/20 04/20/20 History metformin 1,000 mg PO BID 02/10/20 04/20/20 History sertraline 25 mg PO DAILY 04/20/20 04/20/20 History trazodone 100 mg PO HS 04/20/20 04/20/20 History Past Med/Surg History Medical History (Updated 04/20/20 @ 15:10 by Annabelle Champion PA-C) Depression with anxiety Diabetes HLD (hyperlipidemia) Hypertension Surgical History (Updated 04/20/20 @ 15:05 by Annabelle Champion PA-C) History of colonoscopy History of right knee surgery x 2 secondary to patellar dislocation Family History Mother , 41 Pulmonary embolism Father Colorectal cancer Alzheimer disease Social History (Updated 04/20/20 @ 15:08 by Annabelle Champion PA-C) Smoking Status: Current every day smoker Tobacco Type: Cigarettes packs per day: 1; Years Smoked: 25; Hx Alcohol Use: Yes Hx Substance Use: Yes Non-Prescribed Medications: Marijuana Last Used Substance: Days (ago) Last Used Substance Other:: 1 Preferred Language: Nauruan Communication Ability: Effective marital status: Current Living Situation: Alone Feels Safe at Home: Yes Review of Systems Review of Systems: All systems reviewed & are unremarkable except as noted in HPI & below Physical Exam Physical Exam: Constitutional: WD/WN, unkempt male, excess facial hair, vitals as above, NAD, sitting up in bed, pleasant, conversing easily Head: Normocephalic, Atraumatic Eyes: PERRL, conjunctivae normal, anicteric sclerae ENMT: external ear and nose normal, oropharynx normal Neck: trachea midline, no thyromegaly normal visual inspection Respiratory: normal respiratory effort, lungs clear to auscultation, no wheeze, rales, rhonchi. Normal insp/exp effort, no accessory muscle use Cardiovascular: Tachycardic rate, regular rhythm, no murmur, no edema Vessels: no JVD or carotid bruit Chest: normal inspection of chest Abdomen: normal bowel sounds, soft, nontender, no hepatosplenomegaly Musculoskeletal: no cyanosis or clubbing, extremities motor strength 5/5 Skin: no rashes, warm and dry normal turgor Neurologic: PERRL, EOMI, accommodation nl, no face palsy, no dysarthria CN's II-XI intact bilaterally and moves all extremities Psychiatric: A+Ox3, euthymic affect Lymphatic: no cervical or axillary lymphadenopathy : deferred Results & Data Results & Data ([facility]) Vital Signs (Past 12 Hours) Vital Signs Temp Pulse Pulse Resp BP BP Pulse Ox 04/20/20 13:07 94 H 17 149/87 H 97 04/20/20 08:02 100 H 20 152/85 H 97 04/20/20 05:59 36.8 C 96 H 20 141/90 H 97 Laboratory Results Short CBC 04/20/20 Range/Units 06:11 WBC 7.42 (4.8-10.8) K/uL Hgb 15.7 (14.0-18.0) g/dL Hct 45.2 (42-52) % Plt Count 175 (130-400) K/uL BMP 04/20/20 06:11 Sodium 144 Potassium 3.8 Chloride 109 H Carbon Dioxide 24 BUN 11 Creatinine 0.97 Glucose 163 H Calcium 8.0 L Liver Function 04/20/20 Range/Units 06:11 Total Bilirubin 0.6 (0.2-1) mg/dl AST 18 (15-37) U/L ALT 22 (12-78) U/L Alkaline Phosphatase 70 (45-117) U/L Albumin 3.9 (3.4-5.0) gm/dl Urine 04/20/20 Range/Units 06:08 Urine Color Yellow Urine Appearance Clear (Clear) Urine pH 5.5 (4.5-7.5) Ur Specific Marshall 1.013 (1.000-1.030) Urine Protein Trace H (Negative) Urine Glucose (UA) Trace H (Negative) Medications Administered Metformin HCl (Metformin Hcl 500 Mg Tab) 1,000 mg PO BIDM MEENA Stop: 05/20/20 07:59 Last Admin: 04/20/20 08:00 Dose: 1,000 mg Documented by: [id number] Miscellaneous (Check Clonidine Patch Placement) 1 ea N/A QS MEENA Stop: 05/20/20 07:59 Last Admin: 04/20/20 08:39 Dose: 1 ea Documented by: [id number] Discontinued Medications Clonidine HCl (Clonidine Hcl 0.3 Mg/24 Hr Transderm Sys) 1 patch TD CQWK STA Stop: 04/20/20 07:17 Last Admin: 04/20/20 08:00 Dose: 1 patch Documented by: [id number] Multivitamins 10 ml/ Thiamine HCl 100 mg/ Folic Acid 1 mg/Sodium Chloride 1,011.2 mls @ 1,011.2 mls/hr IV .Q1H ONE Stop: 04/20/20 14:50 Last Admin: 04/20/20 14:32 Dose: 1,011.2 mls/hr Documented by: [id number] Lorazepam (Ativan) 1 mg in 2 mls @ 2 mls/min IV NOW STA Stop: 04/20/20 14:03 Last Admin: 04/20/20 14:08 Dose: 2 mls/min Documented by: [id number] Ondansetron HCl (Ondansetron Inj 2 Mg/Ml 2 Ml Vial) 4 mg IV NOW STA Stop: 04/20/20 13:53 Last Admin: 04/20/20 14:08 Dose: 4 mg Documented by: [id number] Sertraline HCl (Sertraline Hcl 50 Mg Tablet) 25 mg PO NOW ONE Stop: 04/20/20 06:51 Last Admin: 04/20/20 08:31 Dose: 25 mg Documented by: [id number] Code Status & VTE Plan Code Status Full Code VTE Prophylaxis Plan VTE Prophylaxis will be ordered: Yes Supervising Physician Co-Signing Physician Notes I saw this patient with the physician equity sales assistant, I participated in the history, physical, review of systems, and physical exam. I reviewed the medications with the patient and the physician equity sales assistant and helped reconcile the medications. I helped take a detailed family and social history as well. I formulated the assessment and plan personally with the physician equity sales assistant and went over it with the patient. Physical Exam Gen-AAO x 3, NAD, Afebrile Head-NCAT, EOMI, PERRLA, Anicteric Sclera, No Posterior Pharyngeal Erythema Neck-Supple, No JVD, No Thyromegaly, No Masses, No LAD, No Bruits Lungs-Clear to Auscultation Bilaterally, No Rales, No Rhonchi, No Wheezing, No Crepitus Chest-No S4, +S1, +S2, No S3, No Murmurs, No Rubs, No Gallops, No Ectopy Abdomen-Soft, Bowel Sounds Present, Non Tender, Non Distended, No Hepatomegaly, No Splenomegaly, No Palpable Masses, No Rebound, No Rigidity, No Guarding Musculoskeletal-Full Range of Motion Bilaterally, No CVAT Extremities-No Cyanosis, No Clubbing, No Edema Nuero-Cranial Nerves II-XII grossly intact, Motor WNL, DTRs WNL, Strength WNL, Non Focal Psych-mildly agitated
[2020-04-20] MEDS ORDERED: DEXTROSE 50% 50 ML SYRINGE IV PRN (15:43)
[2020-04-20] MEDS ORDERED: GLUCAGON FOR INJ 1 MG VIAL SQ PRN (15:43)
[2020-04-20] MEDS ORDERED: GLUCOSE 10 TABS/TUBE PO PRN (15:43)
[2020-04-20] MEDS ORDERED: GLUCOSE 40% GEL 15 GM TUBE PO PRN (15:43)
[2020-04-20] MEDS ORDERED: GABAPENTIN 1200MG ALCOHOL WITHDRAWAL LOAD PO STA (15:43)
[2020-04-20] MEDS ORDERED: MAGNESIUM HYDROXIDE SUSP 30 ML UDC PO PRN (15:43)
[2020-04-20] MEDS ORDERED: LORazepam 2 MG/4 ML VIAL IV PRN (15:43)
[2020-04-20] MEDS ORDERED: ATIVAN IV ALCOHOL WITHDRAWL IV PRN (15:43)
[2020-04-20] MEDS ORDERED: POLYETHYLENE (MIRALAX) 17 GM PACK PO PRN (15:43)
[2020-04-20] MEDS ORDERED: LORazepam 3 MG/6 ML VIAL IV PRN (15:43)
[2020-04-20] MEDS ORDERED: ALUMINUM/MAGNESIUM SUSP 30 ML UDC PO PRN (15:43)
[2020-04-20] MEDS ORDERED: ONDANSETRON INJ 2 MG/ML 2 ML VIAL IV PRN (15:43)
[2020-04-20] MEDS ORDERED: CARBOHYDRATES FOR HYPOGLYCEMIA PO PRN (15:43)
[2020-04-20] MEDS ORDERED: GABAPENTIN 600 MG TAB PO ONE (16:00)
[2020-04-20] MEDS: SODIUM CHLORIDE 0.9% 1000ML 1,000 ML IV SCH (16:49)
[2020-04-20] MEDS: FOLIC ACID 1 MG TAB PO SCH (17:02)
[2020-04-20] MEDS: THIAMINE HCL 100 MG TAB PO SCH (17:02)
[2020-04-20] MEDS: INSULIN ASPART 100 UNITS/ML 3 ML PEN SC SCH ×2 (17:22→21:03)
[2020-04-20] MEDS ORDERED: TRAZODONE HCL 100 MG TAB PO SCH (21:00)
[2020-04-20] MEDS: INSULIN GLARGINE SOLOSTAR 100 UNITS/ML 3 ML PEN SC SCH (21:02)
[2020-04-20] MEDS: GABAPENTIN 600 MG TAB PO SCH (21:03)
[2020-04-20] MEDS: TRAZODONE HCL 100 MG TAB PO SCH (21:03)
[2020-04-20] MEDS ORDERED: cloNIDine HCL 0.1 MG TAB PO PRN (21:43)
[2020-04-21] MEDS: GABAPENTIN 600 MG TAB PO SCH ×3 (04:12→21:12)
[2020-04-21] MEDS: SODIUM CHLORIDE 0.9% 1000ML 1,000 ML IV SCH (05:40)
[2020-04-21 06:04] LABS: Hematocrit (blood only) 38.9 % (42-52); Hemoglobin 13.6 g/dL (14.0-18.0); Mean Corpuscular Hemoglobin 31.2 pg (25-34); Mean Corpuscular Volume 89.2 fL (80-100); Mean Platelet Volume 9.1 fL (7.4-10.4); Platelet Count 134 K/uL (130-400); RDW Coefficient of Variation 15.3 % (11.5-14.5); RDW Standard Deviation 49.7 fL (36.4-46.3); Red Blood Count 4.36 M/uL (4.7-6.1)
[2020-04-21 06:33] LABS: BUN Creatinine Ratio 12.9 (10-20); Calcium 8.2 mg/dl (8.5-10.1); Creatinine Clr Calc Pharmacy 75.5 ml/min; Est GFR (African American) 98.5; Magnesium 1.6 mg/dl (1.8-2.4); Potassium 3.5 mmol/L (3.5-5.1)
[2020-04-21] MEDS: FOLIC ACID 1 MG TAB PO SCH (07:43)
[2020-04-21] MEDS: ATENOLOL 50 MG TABLET PO SCH (07:44)
[2020-04-21] MEDS: SERTRALINE HCL 50 MG TABLET PO SCH (07:44)
[2020-04-21] MEDS: lisinopriL 40 MG TAB PO SCH (07:44)
[2020-04-21] MEDS: THIAMINE HCL 100 MG TAB PO SCH (07:44)
[2020-04-21] MEDS: ACETAMINOPHEN 325 MG TAB PO PRN (07:45)
[2020-04-21] MEDS: CHECK CLONIDINE PATCH PLACEMENT SCH ×3 (07:50→23:51)
[2020-04-21] MEDS: INSULIN GLARGINE SOLOSTAR 100 UNITS/ML 3 ML PEN SC SCH ×2 (07:51→22:17)
[2020-04-21] MEDS: INSULIN ASPART 100 UNITS/ML 3 ML PEN SC SCH ×4 (07:52→22:17)
[2020-04-21 07:56] LABS: Estimated Average Glucose 134 mg/dl; Hemoglobin A1C 6.3 % (4.5-5.6)
[2020-04-21] MEDS ORDERED: HydrALAZINE HCL 20 MG/ML VIAL IV PRN (08:18)
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
[2020-04-21] MEDS ORDERED: LORazepam 0.5 MG/1 ML VIAL IV PRN (12:30)
--- NOTE | 2020-04-21 16:23 | Hospitalist Progress Note ---
Date of Service April 21, 2020 Assessment & Plan (1) Alcohol withdrawal: (2) Depression with suicidal ideation: A1c [id number] male with history of diabetes type 2, hypertension, depression anxiety, alcoholism and smoking Presenting with suicidal ideations and alcohol intoxication. Assessment & Plan (1) Alcohol withdrawal: This is a 59-year-old male with significant past medical history of T2DM, HTN, HLD, depression with anxiety, tobacco abuse, alcohol abuse who presents to ED via police secondary to suicidal ideation and alcohol intoxication. Minimal hand tremors, otherwise no overt withdrawal symptoms or DTs today Continue alcohol withdrawal protocol including gabapentin taper PRN Ativan for anxiety Patient expressed interest in transitioning to alcohol rehab after hospitalization Case management on board (2) Depression with suicidal ideation: Per admitting service notes pt states 2 to anniversary of mothers was intoxicated when thinking his life was no longer valuable denies having firearms in house, but states he had kitchen knives no formal plan will consult psychiatry Today patient denies suicidal ideations Psychiatry consulted-no suicidal ideations pulmonary exam Continue usual Zoloft and trazodone (3) Diabetes: A1c 6.3 hold metformin lantus/novolog per protocol (4) Hypertension: Blood pressure elevated continue lisinopril, atenolol PRN hydralazine Hold off clonidine secondary to heart rate being on the low side hold HCTZ for now due to likely volume contraction in setting of recent alcohol intoxication Monitor closely--> may need to add amlodipine (5) HLD (hyperlipidemia): continue statin (6) Depression with anxiety: Management per #2 (7) Tobacco abuse: encourage smoking cessation (8) DVT prophylaxis: SCD/TEDS Ambulation encouraged Disposition: Possible transition to alcohol rehab when medically stable 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 Greene upon discharge ( pt has not seen Dr. Greene in clinic since 2018 - will need to re establish Admission and Anticipated Discharge Date Admission Date: April 20, 2020 Subjective Follow-up for alcohol withdrawal, suicidal ideations Seen with NURIS Quick at the bedside throughout whole encounter Seen sitting up in bed, comfortable, not in distress, oriented x3, very pleasant Calm and, Cooperative States he feels fine overall Has minimal anxiety but this is his baseline according to patient Admits to having minimal tremors but denies sweating, confusion, hallucinations No chest pain, shortness of breath, palpitations, dizziness abdominal pain, nausea vomiting Denies feeling depressed or having suicidal ideations today No other symptoms Review of Systems Review of Systems: All systems reviewed & are unremarkable except as noted in Subjective Physical Exam Physical Exam: General- oriented x 3, not in distress, speaks in sentences with no effort or accessory muscle use Head- atraumatic Eyes- PERRL, EOMI, anicteric ENT- oropharynx clear Neck- supple, no JVD, no adenopathy, no thyromegaly; carotids +2/2, no bruits appreciated Lungs- clear to auscultation bilaterally, no rales/wheezes Heart- normal rate, regular rhythm; no murmur, no gallop, no rub appreciated Abdomen- normal bowel sounds, nondistended, soft, nontender, no masses or hepatosplenomegaly Extremities-positive minimal hand tremors, no pretibial edema, no calf tenderness; peripheral pulses intact Neuro- alert, oriented x 3; CN 2-12 grossly intact; motor 5/5 bilaterally;sensation 100% on all extremities; no other gross focal neurologic deficits Skin- warm & dr Psych-affect appropriate, calm, in good spirits, denies suicidal ideation today Results & Data Results & Data ([facility]) Vital Signs (Past 12 Hours) Vital Signs Temp Pulse Pulse Pulse Resp BP BP 04/21/20 15:13 36.7 C 59 L 20 168/85 H 04/21/20 15:00 61 04/21/20 09:49 36.9 C 64 18 159/83 H 04/21/20 07:27 67 04/21/20 07:15 36.7 C 78 20 199/86 H 202/81 H Pulse Ox 04/21/20 15:13 95 04/21/20 15:00 04/21/20 09:49 96 04/21/20 07:27 04/21/20 07:15 94 Laboratory Results Laboratory Results - last 24 hr 04/20/20 04/20/20 04/21/20 16:50 20:17 05:48 WBC 7.80 RBC 4.36 L Hgb 13.6 L Hct 38.9 L MCV 89.2 MCH 31.2 MCHC 35.0 RDW Std Deviation 49.7 H RDW Coeff of Lindy 15.3 H Plt Count 134 MPV 9.1 Sodium Potassium Chloride Carbon Dioxide Anion Gap BUN Creatinine Est Cr Clr Drug Dosing Est GFR ( Amer) Est GFR (Non-Af Amer) BUN/Creatinine Ratio Glucose POC Glucose 128 H 124 H Estimat Average Glucose Hemoglobin A1c Calcium Magnesium 04/21/20 04/21/20 04/21/20 05:48 05:48 07:43 WBC RBC Hgb Hct MCV MCH MCHC RDW Std Deviation RDW Coeff of Lindy Plt Count MPV Sodium 139 Potassium 3.5 Chloride 108 H Carbon Dioxide 24 Anion Gap 7.0 BUN 12 Creatinine 0.96 Est Cr Clr Drug Dosing 75.5 Est GFR ( Amer) 98.5 Est GFR (Non-Af Amer) 85.0 BUN/Creatinine Ratio 12.9 Glucose 107 H POC Glucose 212 H Estimat Average Glucose 134 Hemoglobin A1c 6.3 H Calcium 8.2 L Magnesium 1.6 L 04/21/20 11:38 WBC RBC Hgb Hct MCV MCH MCHC RDW Std Deviation RDW Coeff of Lindy Plt Count MPV Sodium Potassium Chloride Carbon Dioxide Anion Gap BUN Creatinine Est Cr Clr Drug Dosing Est GFR ( Amer) Est GFR (Non-Af Amer) BUN/Creatinine Ratio Glucose POC Glucose 121 H Estimat Average Glucose Hemoglobin A1c Calcium Magnesium
[2020-04-21] MEDS: TRAZODONE HCL 100 MG TAB PO SCH (21:12)
[2020-04-22 02:11] LABS: Marijuana Quant, GCMS Urine 191 ng/mL (<5)
[2020-04-22] MEDS: GABAPENTIN 600 MG TAB PO SCH ×2 (03:50→17:41)
[2020-04-22] MEDS: lisinopriL 40 MG TAB PO SCH (08:07)
[2020-04-22] MEDS: INSULIN GLARGINE SOLOSTAR 100 UNITS/ML 3 ML PEN SC SCH ×2 (08:07→21:49)
[2020-04-22] MEDS: INSULIN ASPART 100 UNITS/ML 3 ML PEN SC SCH ×4 (08:07→21:50)
[2020-04-22] MEDS: CHECK CLONIDINE PATCH PLACEMENT SCH ×2 (08:08→17:46)
[2020-04-22] MEDS: FOLIC ACID 1 MG TAB PO SCH (08:08)
[2020-04-22] MEDS: SERTRALINE HCL 50 MG TABLET PO SCH (08:08)
[2020-04-22] MEDS: THIAMINE HCL 100 MG TAB PO SCH (08:08)
[2020-04-22] MEDS: ATENOLOL 50 MG TABLET PO SCH (08:08)
--- NOTE | 2020-04-22 16:33 | Hospitalist Progress Note ---
Date of Service April 22, 2020 Assessment & Plan (1) Alcohol withdrawal: (1) Alcohol withdrawal: (2) Depression with suicidal ideation: A1c [id number] male with history of diabetes type 2, hypertension, depression anxiety, alcoholism and smoking Presenting with suicidal ideations and alcohol intoxication. Assessment & Plan (1) Alcohol withdrawal: This is a 59-year-old male with significant past medical history of T2DM, HTN, HLD, depression with anxiety, tobacco abuse, alcohol abuse who presents to ED via police secondary to suicidal ideation and alcohol intoxication. No overt symptoms of alcohol withdrawal today Continue alcohol withdrawal protocol including gabapentin taper PRN Ativan for anxiety Case management on board, looking for alcohol rehab facilities (2) Depression with suicidal ideation: Per admitting service notes pt states 2 to 50 anniversary of mothers was intoxicated when thinking his life was no longer valuable denies having firearms in house, but states he had kitchen knives no formal plan Psychiatry consulted Today patient still denies suicidal ideations Psychiatry consulted-no suicidal ideations on exam Continue usual Zoloft and trazodone (3) Diabetes: A1c 6.3 hold metformin lantus/novolog per protocol (4) Hypertension: Blood pressure elevated continue lisinopril, atenolol PRN hydralazine Hold off clonidine secondary to heart rate being on the low side hold HCTZ for now due to likely volume contraction in setting of recent alcohol intoxication Monitor closely--> may need to add amlodipine (5) HLD (hyperlipidemia): continue statin (6) Depression with anxiety: Management per #2 (7) Tobacco abuse: encourage smoking cessation (8) DVT prophylaxis: SCD/TEDS Ambulation encouraged Disposition: Possible transition to alcohol rehab when medically stable 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 Greene upon discharge ( pt has not seen Dr. Greene in clinic since 2018 - will need to re establish Admission and Anticipated Discharge Date Admission Date: April 20, 2020 Subjective Follow-up for alcohol withdrawal, suicidal ideation Seen resting in bed, comfortable, not in distress, watching TV, in good spirits Comfortable cooperative, pleasant States he feels fine overall Less tremors, no sweating, hallucinations, confusion States mood is fine today, has minimal anxiety but no depression or suicidal ideations No other symptom Review of Systems Review of Systems: All systems reviewed & are unremarkable except as noted in HPI & below Physical Exam Physical Exam: General- oriented x 3, not in distress, speaks in sentences with no effort or accessory muscle use Eyes- anicteric Neck- no JVD Lungs- clear breath sounds bilaterally, no wheezing, no crackles Heart- normal rate, regular rhythm; no murmurs Abdomen- normal bowel sounds, nondistended, soft, nontender Extremities-no hand tremors, no pretibial edema, no calf tenderness Neuro- alert, oriented x 3; no gross focal neurologic deficits Skin- warm & dry Psych-affect appropriate, in good spirits, denies depression symptoms Results & Data Results & Data ([facility]) Vital Signs (Past 12 Hours) Vital Signs Temp Pulse Resp BP Pulse Ox 04/22/20 15:25 37.0 C 58 L 22 139/74 95 04/22/20 11:00 37.0 C 55 L 18 159/83 H 98 04/22/20 07:00 36.9 C 55 L 18 156/79 H 96 Laboratory Results Laboratory Results - last 24 hr 04/20/20 04/21/20 04/21/20 06:08 16:34 21:06 POC Glucose 121 H 110 H U Marijuana THC Carboxy 191 H Drug Screen Comment SEE NOTE 04/22/20 04/22/20 07:44 11:54 POC Glucose 118 H 114 H U Marijuana THC Carboxy Drug Screen Comment
[2020-04-22] MEDS: TRAZODONE HCL 100 MG TAB PO SCH (21:49)
[2020-04-23] MEDS: CHECK CLONIDINE PATCH PLACEMENT SCH ×2 (00:05→07:59)
[2020-04-23] MEDS: GABAPENTIN 600 MG TAB PO SCH (03:37)
[2020-04-23] MEDS: ACETAMINOPHEN 325 MG TAB PO PRN (07:59)
[2020-04-23] MEDS: INSULIN ASPART 100 UNITS/ML 3 ML PEN SC SCH ×2 (07:59→12:08)
[2020-04-23] MEDS: INSULIN GLARGINE SOLOSTAR 100 UNITS/ML 3 ML PEN SC SCH (08:00)
[2020-04-23] MEDS: lisinopriL 40 MG TAB PO SCH (08:01)
[2020-04-23] MEDS: SERTRALINE HCL 50 MG TABLET PO SCH (08:01)
[2020-04-23] MEDS: FOLIC ACID 1 MG TAB PO SCH (08:02)
[2020-04-23] MEDS: THIAMINE HCL 100 MG TAB PO SCH (08:03)
[2020-04-23] MEDS: ATENOLOL 50 MG TABLET PO SCH (08:03)
--- NOTE | 2020-04-23 14:46 | Hospitalist Progress Note ---
Date of Service April 23, 2020 Assessment & Plan (1) Alcohol withdrawal: (1) Alcohol withdrawal: (2) Depression with suicidal ideation: A1c 6.239-[id number] male with history of diabetes type 2, hypertension, depression anxiety, alcoholism and smoking Presenting with suicidal ideations and alcohol intoxication. Assessment & Plan (1) Alcohol withdrawal: This is a 59-year-old male with significant past medical history of T2DM, HTN, HLD, depression with anxiety, tobacco abuse, alcohol abuse who presents to ED via police secondary to suicidal ideation and alcohol intoxication. placed on Alcohol Withdrawal Protocol including Gabapentin taper, and PRN Ativan patient did fine overall, no overt signs of DT's Continue 1 more dose of Gabapentin tomorrow 04/24/20, then stop transition to [facility] strongly encouraged Alcohol Cessation, patient verbalized understanding and agreement (2) Depression with suicidal ideation: Per admitting service notes: pt states 2 to 50th anniversary of mothers was intoxicated when thinking his life was no longer valuable denies having firearms in house, but states he had kitchen knives no formal plan Psychiatry consulted since hospital day 2, patient denied suicidal ideations Psychiatry consulted-no suicidal ideations on exam recommend Alcohol Rehab per Psych Service: "- Pt admits that episodes of suicidal ideation have been only within the context of alcohol intoxication. While he endorses depressed mood and feelings of hopelessness, he denies suicidal ideation, intent, plan of acts of furtherance. Pt admits he feels he would be able to let his staff know if he were experiencing thoughts or urges to harm himself here in the hospital setting without need for 1:1 supervision, and is able to contract for safety on the medical floor. We discussed seizure risk in the context of alcohol withdrawal a nd concern that antidepressant medications can lower seizure threshold. Will not plan on adjusting psychotropic medications at this time. Pt verbalized understanding and is agreeable with that. - At this time, the patient is reporting interest in referrals for inpatient D&A rehab. Pt states he has not had formal D&A treatment in the past and does admit that his alcohol use is likely contributing to his anxiety and depression. Recommend addressing the patient's alcohol use initially, and then conducting further evaluation to determine level of residual anxiety and depression. Case management to assist with referrals to D&A rehab. Recommend direct transfer to a facility when patient is medically cleared to reduce risk of relapse." continue counseling at Rehab center Continue usual Zoloft and trazodone monitor closely as outpatient (3) Diabetes: A1c 6.3 continue metformin (4) Hypertension: resume usual HCTZ, lisinopril, atenolol outpatient ff up (5) HLD (hyperlipidemia): continue statin (6) Depression with anxiety: Management per #2 (7) Tobacco abuse: encourage smoking cessation (8) DVT prophylaxis: SCD/TEDS Ambulation encouraged Disposition: transition to alcohol rehab ff up with PCP Dr. Gary Greene at [facility] on 05/03/20 at 1100am plan of care discussed with patient in detail all questions answered he is understanding, agreeable, comfortable with the plan of care Admission and Anticipated Discharge Date Admission Date: April 20, 2020 Subjective ff up for alcohol withdrawal, suicidal ideation, etc seen at bedside, walking in the room in good spirits, very pleasant comfortable states he feels fine, much better overall denies tremors, anxiety, confusion, sweating denies feeling depressed or anxious no suicidal thoughts no other symptoms ambulating with no problems states he is ready and would like to be discharged today Review of Systems Review of Systems: All systems reviewed & are unremarkable except as noted in Subjective Physical Exam Physical Exam: General- oriented x 3, not in distress, speaks in sentences with no effort or accessory muscle use Eyes- anicteric Neck- no JVD Lungs- clear breath sounds , no rales/wheezing bilaterally Heart- normal rate, regular rhythm; no murmurs Abdomen- normal bowel sounds, nondistended, soft, nontender Extremities- no pretibial edema, no calf tenderness Neuro- alert, oriented x 3; no gross focal neurologic deficits Skin- warm & dry Results & Data Results & Data ([facility]) Vital Signs (Past 12 Hours) Vital Signs Temp Pulse Pulse Pulse Resp BP Pulse Ox 04/23/20 11:17 36.8 C 57 L 20 142/75 H 95 04/23/20 08:00 78 04/23/20 07:32 37.0 C 54 L 20 145/68 H 96 04/23/20 07:29 63 04/23/20 03:00 36.4 C L 54 L 20 134/73 96 Laboratory Results Laboratory Results - last 24 hr 04/22/20 04/22/20 04/23/20 16:53 20:33 07:53 POC Glucose 117 H 115 H 138 H 04/23/20 11:25 POC Glucose 110 H
--- NOTE | 2020-04-23 15:08 | Discharge Summary ---
Date of Service April 23, 2020 Admission HPI Per Admitting Provider This is a 59-year-old male with significant past medical history of T2DM, HTN, HLD, depression with anxiety, tobacco abuse, alcohol abuse who presents to ED via police secondary to suicidal ideation and alcohol intoxication. He states he drank 4 four ANDREW last evening as well as smoking marijuana. He also elicits it was 50th anniversary of his mother's . This had him feeling like his life was not worth living. He states she age 41 of a massive PE. He did not have a plan to take his life. He denies having firearms in his home. The only weapon he had was, "kitchen knives." He does admit to being hospitalized in [facility] in January 2020 secondary to his depression. He does admit to drinking 8-24 ounce alcoholic beverages weekly. He also smokes 1 pack of cigarettes per day. He admits to smoking marijuana daily. He currently denies suicidal or homicidal ideation. According to nursing staff prior to admission recommendation he was experiencing symptoms of withdrawal including pacing, diaphoresis and shakiness. In ED he received IV banana bag, 1 g IV Ativan and clonidine patch which has helped withdrawal symptoms. He currently denies any fever, chills, sweats, illness, dizziness, syncope, chest pain, shortness breath, cough, nausea, vomiting, abdominal pain. He denies any change in bowel or urinary habits. His appetite is otherwise poor and states he does not eat ve ry healthy. Admission Exam Per Admitting Provider Constitutional: WD/WN, unkempt male, excess facial hair, vitals as above, NAD, sitting up in bed, pleasant, conversing easily Head: Normocephalic, Atraumatic Eyes: PERRL, conjunctivae normal, anicteric sclerae ENMT: external ear and nose normal, oropharynx normal Neck: trachea midline, no thyromegaly normal visual inspection Respiratory: normal respiratory effort, lungs clear to auscultation, no wheeze, rales, rhonchi. Normal insp/exp effort, no accessory muscle use Cardiovascular: Tachycardic rate, regular rhythm, no murmur, no edema Vessels: no JVD or carotid bruit Chest: normal inspection of chest Abdomen: normal bowel sounds, soft, nontender, no hepatosplenomegaly Musculoskeletal: no cyanosis or clubbing, extremities motor strength 5/5 Skin: no rashes, warm and dry normal turgor Neurologic: PERRL, EOMI, accommodation nl, no face palsy, no dysarthria CN's II-XI intact bilaterally and moves all extremities Psychiatric: A+Ox3, euthymic affect Lymphatic: no cervical or axillary lymphadenopathy : deferred Principal Diagnosis Alcohol Withdrawal, Suicidal Ideations Discharge Exam General- oriented x 3, not in distress, speaks in sentences with no effort or accessory muscle use Eyes- anicteric Neck- no JVD Lungs- clear breath sounds , no rales/wheezing bilaterally Heart- normal rate, regular rhythm; no murmurs Abdomen- normal bowel sounds, nondistended, soft, nontender Extremities- no pretibial edema, no calf tenderness Neuro- alert, oriented x 3; no gross focal neurologic deficits Skin- warm & dry Discharge Data Allergies Allergy/AdvReac Type Severity Reaction Status Date / Time No Known Allergies Allergy Verified 04/20/20 06:48 Consultations 04/20/20 14:07 ED Decision to Admit Stat 04/20/20 14:23 Consult Psychiatry Routine 04/20/20 15:43 Consult Case Management - Discharge Planning Routine 04/20/20 17:22 Consult Behavioral Health Liaison Routine Hospital Course (1) Alcohol withdrawal: 59-year-old male with history of diabetes type 2, hypertension, depression anxiety, alcoholism and smoking Presenting with suicidal ideations and alcohol intoxication. Assessment & Plan (1) Alcohol withdrawal: This is a 59-year-old male with significant past medical history of T2DM, HTN, HLD, depression with anxiety, tobacco abuse, alcohol abuse who presents to ED via police secondary to suicidal ideation and alcohol intoxication. placed on Alcohol Withdrawal Protocol including Gabapentin taper, and PRN Ativan patient did fine overall, no overt signs of DT's Continue 1 more dose of Gabapentin tomorrow 04/24/20, then stop transition to [facility] strongly encouraged Alcohol Cessation, patient verbalized understanding and agreement (2) Depression with suicidal ideation: Per admitting service notes: pt states 2/2 to 50th anniversary of mothers was intoxicated when thinking his life was no longer valuable denies having firearms in house, but states he had kitchen knives no formal plan Psychiatry consulted since hospital day 2, patient denied suicidal ideations Psychiatry consulted-no suicidal ideations on exam recommend Alcohol Rehab per Psych Service: "- Pt admits that episodes of suicidal ideation have been only within the context of alcohol intoxication. While he endorses depressed mood and feelings of hopelessness, he denies suicidal ideation, intent, plan of acts of furtherance. Pt admits he feels he would be able to let his staff know if he were experiencing thoughts or urges to harm himself here in the hospital setting without need for 1:1 supervision, and is able to contract for safety on the medical floor. We discussed seizure risk in the context of alcohol withdrawal and concern that antidepressant medications can lower seizure threshold. Will not plan on adjusting psychotropic medications at this time. Pt verbalized understanding and is agreeable with that. - At this time, the patient is reporting interest in referrals for inpatient D&A rehab. Pt states he has not had formal D&A treatment in the past and does admit that his alcohol use is likely contributing to his anxiety and depression. Recommend addressing the patient's alcohol use initially, and then conducting further evaluation to determine level of residual anxiety and depression. Case management to assist with referrals to D&A rehab. Recommend direct transfer to a facility when patient is medically cleared to reduce risk of relapse." continue counseling at Rehab center Continue usual Zoloft and trazodone monitor closely as outpatient (3) Diabetes: A1c 6.3 continue metformin outpatient ff up with PCP (4) Hypertension: resume usual HCTZ, lisinopril, atenolol outpatient ff up with PCP (5) HLD (hyperlipidemia): continue statin (6) Depression with anxiety: Management per #2 (7) Tobacco abuse: encourage smoking cessation Disposition: transition to alcohol rehab ff up with PCP Dr. Gary Greene at [facility] on 05/03/20 at 1100am plan of care discussed with patient in detail all questions answered he is understanding, agreeable, comfortable with the plan of care Total Time Total Time Spent Total Time Spent (In Minutes): 45 minutes Discharge Plan Discharge Items Patient Disposition: Drug & Alcohol Rehab Reason For Visit: ALCOHOL WITHDRAWAL Discharge Diagnosis: ALCOHOL WITHDRAWAL, SUICIDAL IDEATIONS Activity: Resume your previous activity Activity Comment: Resume gradually as tolerated Driving/Machine Use: No driving until allowed by primary care physician Non-emergency contact: Primary Care Provider Call non-emergency contact if: you have any medication questions, your symptoms worsen and you have a fever Follow-up/Referrals: Gary Greene MD [Primary Care Provider] - 05/03/20 11:20 am Diet: Carb Consistent or DM2 and Heart Healthy Addtl Attending Provider Instructions: Please refer to accompanying hospital discharge summary for further details. Pending Studies at Discharge: No Stand-Alone Forms: My [facility] CoreFlow, Suicide Prevention Resources Skilled Items Patient informed of condition?: Yes DNR: No Discharge Level of Care: Other Communicable Disease: No Discharge Prognosis: Stable Lines: None Urinary Catheter: No Medications and DC Order Prescriptions: New gabapentin 600 mg Tablet 600 mg PO Q24H Qty: 1 RF: 0 thiamine HCl (vitamin B1) [Vitamin B-1] 100 mg Tablet 100 mg PO QAM Qty: 7 RF: 0 folic acid 1 mg Tablet 1 mg PO QAM Qty: 7 RF: 0 multivitamin Tablet 1 tab PO DAILY Qty: 30 RF: 2 trazodone 100 mg tablet 100 mg PO HS Qty: 14 RF: 0 metformin 1,000 mg Tablet 1,000 mg PO BID Qty: 60 RF: 0 sertraline 25 mg tablet 25 mg PO DAILY Qty: 14 RF: 0 hydrochlorothiazide 25 mg Tablet 25 mg PO DAILY Qty: 30 RF: 0 lisinopril 40 mg Tablet 40 mg PO DAILY Qty: 30 RF: 0 atenolol 50 mg Tablet 50 mg PO DAILY Qty: 30 RF: 0 Krames/Other Patient Handouts: Managing Type 2 Diabetes, A1C Admission Data Admit Date/Time: 04/20/20 14:23 Attending Provider: Kyle Foy Admit Provider: Andre Willingham Primary Care Provider: Gary Greene Other Providers: Grace Terry ; Andre Willingham Other Interventions: PSY Interdisciplinary Discharge Planning Last Done: 04/22/20 10:01
[2020-04-24] MEDS ORDERED: GABAPENTIN 600 MG TAB PO SCH (04:00)
== END 2020-04-23 15:46 | disposition alcohol treatment (31) | DRG 897 ==
LOC: ED 05:54 → 2W 14:23 → SUATTDRO 14:23 → 2W 14:57
DX: E78.5 Hyperlipidemia, unspecified; F32.9 Major depressive disorder, single episode, unspecified; F41.9 Anxiety disorder, unspecified; F17.210 Nicotine dependence, cigarettes, uncomplicated; E11.9 Type 2 diabetes mellitus without complications; I10 Essential (primary) hypertension; Z79.84 Long term (current) use of oral hypoglycemic drugs; R45.851 Suicidal ideations; F10.239 Alcohol dependence with withdrawal, unspecified

== ENCOUNTER 2024-08-26 23:16 | Inpatient (IN) ==
--- NOTE | 2024-08-27 00:08 | Emergency Department Note ---
Impression & Plan Alcohol intoxication, CHI (closed head injury), Marijuana use, Acute pain of right shoulder, Abrasion of left middle finger, Multiple fractures of ribs ED Provider Note ED Provider Note NAME: STEVEN TRISTAN AGE:63 SEX: Male : 1960 ARRIVES VIA: EMS INFORMANT: Patient, EMS ED PROVIDER(s): Kaylyn Dave DO CHIEF COMPLAINT: Alcohol intoxication, fall, suicidal statement HPI: This is a 63-year-old male brought in by EMS due to concern as bystanders called EMS after patient fell outside a local establishment. Patient reported to EMS he had been drinking alcohol and he did smoke marijuana. Patient states to me at bedside he does not recall what happened but does know that he fell. He states he was drinking alcohol and does not recall if he used any other recreational drugs. He denies SI, HI, prior suicide attempt or concern for acute mental health problem. Patient does not recall his medications. EMS wrote a petitioning statement as patient made a statement of passive suicidality while being transported. PAST MEDICAL HISTORY:See Below PAST SURGICAL HISTORY:See Below FAMILY HISTORY:See Below SOCIAL HISTORY:See Below HOME MEDICATIONS:See Below ALLERGIES:See Below VITALS:See Below PHYSICAL EXAMINATION: GENERAL: alert, well appearing, well nourished, no distress, non-toxic HEAD: nc/at, small area of evolving ecchymosis noted in the right periorbital region, small abrasion with dried blood left shinto, no other evidence of acute facial trauma, no midface instability EYE EXAM: normal conjunctiva, PERRL and EOM's grossly intact OROPHARYNX: no exudate, no erythema, lips, buccal mucosa, and tongue normal and mucous membranes are dry, no blood noted in the oropharynx, edentulous NECK: supple, no nuchal rigidity, no adenopathy, non-tender, FROM LUNGS: Clear but diminished to auscultation. Normal chest wall mechanics, no w/r/r HEART: no murmurs, S1 normal and S2 normal CHEST WALL: No crepitus, nontender with palpation ABDOMEN: abdomen soft, non-tender, normo-active bowel sounds, no masses, no rebound or guarding. PELVIS: Stable to compression, nontender with palpation BACK: Back is symmetrical on inspection and there is no deformity, no midline tenderness, no CVA tenderness. SKIN: no rashes, petechiae, orbruising UPPER EXTREMITIES: upper extremities are grossly normal. FROM, nml pulses b/l. No evidence of significant trauma or deformity. Dried blood noted on left hands, small abrasion noted to third and fourth digit. LOWER EXTREMITIES: No pitting edema. FROM, nml pulses b/l. No evidence of trauma or deformity. NEURO EXAM: Oriented to person and place, does not recall events earlier tonight, cranial nerves II-XII grossly intact, normal speech, no facial droop,nogross weakness of arms, no gross weakness of legs. Gross sensation intact. No ataxia. Vital Signs: reviewed and remarkable Differential Diagnosis: ICH, CHI, fracture, contusion, sprain, strain, laceration, abrasions, hemoperitoneum, occult spine injury, acute ligamentous injury, retroperitoneal bleeding, as well as others were considered MEDICAL DECISION MAKING: This is a 63-year-old male who presents emergency department via EMS after he had fallen outside of a local establishment and admitted to alcohol use and marijuana use. Patient clinically intoxicated on arrival. He was noted to have evidence of trauma to his head no other significant trauma to the trunk and small abrasions noted to the left hand. He was afebrile and hemodynamically stable. Labs drawn and sent, IV established, EKG and x-rays performed at bedside interpreted by me and patient monitored on telemetry. He was started on IV fluids and sent for CT of the head, face, and neck. Patient monitored over many hours and remained hemodynamically stable. Initial labs and imaging reassuring however outside radiology read of chest suggested possible third rib fracture. In light of this patient sent for CT of the chest additionally. This showed 3 rib fractures without flail segment or pulmonary contusion. He was sent back for additional CT of the abdomen and pelvis. Patient rechecked several times and sobered in the usual and expected fashion. Upon achieving sobriety he only complained of left-sided chest wall pain. He denies shortness of breath at the did have conversational dyspnea and tachypnea with ambulation despite no overt hypoxia. Patient initially resistant to the idea of further inpatient evaluation as a precaution. We discussed increased risk due to advanced age, underlying COPD, multiple rib fractures, and concern for pain control given he lives alone. After further discussion patient in agreement with plan. I did ask case management to speak with him and upon achieving sobriety regarding the statement he made last night. While it does seem he may have some underlying depression he has no SI, HI, paranoia, or hallucinations. I do not feel he requires urgent inpatient mental health evaluation or treatment. Consultation(s): 08: Discussed with EDWARD Desouza with [facility]. ER Treatment Provided: See below 0725: Patient awake and alert, has been ambulatory to the bathroom. Patient states he does notice some left-sided chest pain. Left chest wall now tender with palpation however no crepitus or step-off noted. Breath sounds still equal bilaterally. We discussed his labs and imaging. Patient states he does not drink that often. He denies any other recent falls. He denies any sense of feeling short of breath. He states he has previously had broken ribs. He denies headaches, back pain, extremity pain or injury, abdominal pain, nausea, or dizziness. States he has full range of motion of that left hand without pain. Patient does admit to occasional marijuana use. He states he does take a low-dose aspirin daily although admits to not taking his medications daily as prescribed. 0800: Patient did well with incentive spirometry at bedside able to pull greater than 1500 mL. No hypoxia with ambulatory trial the patient does appear more tachypneic. Diagnostics Interpreted By Me: -ECG: Sinus at 70, normal axis, normal intervals, no acute ST/T wave changes, baseline artifact noted -Cardiac Monitoring: An order was placed for continuous cardiac monitoring. The monitor shows a rate of 78 with normal sinus rhythm. -Laboratory studies: As stated above and show below. -Imaging studies: X-ray Chest: A single view study of the chest was reviewed and was negative for cardiomegaly, focal infiltrate, effusion, pulmonary edema, or wide mediastinum. Triage Nursing Note Reviewed Prior/Outside Records Reviewed Critical Care: Critical care of 44 min performed to assess and manage high likelihood of life-threatening trauma and alcohol intoxication, involving labs and imaging performed with assessment to evaluate trauma and alcohol intoxication diagnosis with frequent reassessment. This time includes bedside time, treatment discussions with patient/family/consultants, documentation time and excludes procedure time. Past Med/Surg History Problem List (Updated 08/27/24 @ 23:15 by Kaylyn Dave DO) Multiple fractures of ribs (Acute) Abrasion of left middle finger (Acute) Acute pain of right shoulder (Acute) Marijuana use (Acute) CHI (closed head injury) (Acute) Alcohol intoxication (Acute) DVT prophylaxis Depression with suicidal ideation Alcohol withdrawal Tobacco abuse Alcohol abuse Depression with anxiety HLD (hyperlipidemia) Diabetes (Chronic) Hypertension (Chronic) Leg pain, left (Acute) Surgical History History of colonoscopy History of right knee surgery x 2 secondary to patellar dislocation Family History Mother , 41 Pulmonary embolism Father Colorectal cancer Alzheimer disease Social History Smoking Status: Current every day smoker Tobacco Type: Cigarettes packs per day: 1; Cigarettes Per Day: 5; Second Hand Exposure: No; Do You Dip or Chew Tobacco: No; Tobacco Cessation Education Requested by Patient: No Hx Alcohol Use: Yes Alcohol type: beer and hard liquor Hx Substance Use: Yes Non-Prescribed Medications: Marijuana Last Used Substance: Days (ago) Last Used Substance Other:: Daily at night. 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 marital status: Single Current Living Situation: Alone How many Children do You have: 0 Other Information That Helps Us Care for You: No Feels Safe at Home: Yes Safety Concerns: Feels Safe At This Time Assistive Devices: Glasses Assistive Devices Comment: Uses glasses to drive. Allergies Allergies Allergy/AdvReac Type Severity Reaction Status Date / Time No Known Allergies Allergy Verified 04/20/20 06:48 Home Meds Home Medications Medication Instructions Recorded Confirmed atorvastatin 40 mg tablet (Lipitor) 40 mg PO DAILY 08/27/24 08/27/24 pioglitazone 30 mg tablet (Actos) 30 mg PO DAILY 08/27/24 08/27/24 Previous Rx's Medication Instructions Recorded hydrochlorothiazide 25 mg tablet 25 mg PO DAILY #30 tabs 04/23/20 lisinopril 40 mg tablet 40 mg PO DAILY #30 tabs 04/23/20 metformin 1,000 mg tablet 1,000 mg PO BID #60 tabs 04/23/20 Results & Data (ED) Vital Signs Vital Signs - 24 hr 08/26/24 23:11 08/26/24 23:49 08/26/24 23:51 Temperature 36.5 C Temperature Source Oral Pulse Rate 72 73 Pulse Rate [Exercises] Pulse Rate [Finger] Pulse Rate from SpO2 Sensor Pulse Rhythm Regular Pulse Rhythm [Finger] Pulse Strength Normal Pulse Strength [Finger] Respiratory Rate 18 Respiratory Rate [Exercises] Respiratory Effort / Characteristics Non-Labored Spontaneous Respiratory Depth Normal Respiratory Pattern Regular Blood Pressure 112/68 112/68 Blood Pressure [Right Arm] Blood Pressure Mean 82 75 Blood Pressure Mean [Right Arm] Blood Pressure Position [Right Arm] Pulse Oximetry 96 Pulse Oximetry [Exercises] Oxygen Delivery Method Room Air Sepsis Recent Fever Within 48 Hours No Sepsis New/Unexplained Change in Mental Status N/A Sepsis Action Taken by Nursing No Action Required 08/27/24 01:03 08/27/24 01:30 08/27/24 02:03 Temperature Temperature Source Pulse Rate 70 71 71 Pulse Rate [Exercises] Pulse Rate [Finger] Pulse Rate from SpO2 Sensor 70 71 72 Pulse Rhythm Pulse Rhythm [Finger] Pulse Strength Pulse Strength [Finger] Respiratory Rate 19 19 15 Respiratory Rate [Exercises] Respiratory Effort / Characteristics Respiratory Depth Respiratory Pattern Blood Pressure 112/68 100/55 L 107/59 L Blood Pressure [Right Arm] Blood Pressure Mean 82 70 75 Blood Pressure Mean [Right Arm] Blood Pressure Position [Right Arm] Pulse Oximetry 92 93 95 Pulse Oximetry [Exercises] Oxygen Delivery Method Sepsis Recent Fever Within 48 Hours Sepsis New/Unexplained Change in Mental Status Sepsis Action Taken by Nursing 08/27/24 03:00 08/27/24 03:45 08/27/24 04:00 Temperature Temperature Source Pulse Rate 82 78 80 Pulse Rate [Exercises] Pulse Rate [Finger] Pulse Rate from SpO2 Sensor Pulse Rhythm Pulse Rhythm [Finger] Pulse Strength Pulse Strength [Finger] Respiratory Rate 17 20 Respiratory Rate [Exercises] Respiratory Effort / Characteristics Respiratory Depth Respiratory Pattern Blood Pressure 107/59 L 94/48 L Blood Pressure [Right Arm] Blood Pressure Mean 75 57 Blood Pressure Mean [Right Arm] Blood Pressure Position [Right Arm] Pulse Oximetry 95 Pulse Oximetry [Exercises] Oxygen Delivery Method Sepsis Recent Fever Within 48 Hours Sepsis New/Unexplained Change in Mental Status Sepsis Action Taken by Nursing 08/27/24 05:00 08/27/24 05:12 08/27/24 06:00 Temperature Temperature Source Pulse Rate 90 85 Pulse Rate [Exercises] Pulse Rate [Finger] 80 Pulse Rate from SpO2 Sensor 90 Pulse Rhythm Pulse Rhythm [Finger] Regular Pulse Strength Pulse Strength [Finger] Normal Respiratory Rate 20 19 20 Respiratory Rate [Exercises] Respiratory Effort / Characteristics Non-Labored Spontaneous Respiratory Depth Normal Respiratory Pattern Regular Blood Pressure 117/68 107/61 Blood Pressure [Right Arm] 117/68 Blood Pressure Mean 84 73 Blood Pressure Mean [Right Arm] 84 Blood Pressure Position [Right Arm] Lying Pulse Oximetry 91 95 95 Pulse Oximetry [Exercises] Oxygen Delivery Method Room Air Sepsis Recent Fever Within 48 Hours Sepsis New/Unexplained Change in Mental Status Sepsis Action Taken by Nursing 08/27/24 06:30 08/27/24 07:06 08/27/24 07:35 Temperature Temperature Source Pulse Rate 78 Pulse Rate [Exercises] 96 H Pulse Rate [Finger] 82 Pulse Rate from SpO2 Sensor 79 Pulse Rhythm Pulse Rhythm [Finger] Regular Pulse Strength Pulse Strength [Finger] Normal Respiratory Rate 20 17 Respiratory Rate [Exercises] 26 H Respiratory Effort / Characteristics Non-Labored Spontaneous Respiratory Depth Normal Respiratory Pattern Regular Blood Pressure 103/60 Blood Pressure [Right Arm] 103/60 Blood Pressure Mean 74 Blood Pressure Mean [Right Arm] 74 Blood Pressure Position [Right Arm] Lying Pulse Oximetry 95 95 Pulse Oximetry [Exercises] 94 Oxygen Delivery Method Room Air Room Air Sepsis Recent Fever Within 48 Hours Sepsis New/Unexplained Change in Mental Status Sepsis Action Taken by Nursing 08/27/24 08:15 Temperature Temperature Source Pulse Rate 74 Pulse Rate [Exercises] Pulse Rate [Finger] Pulse Rate from SpO2 Sensor Pulse Rhythm Pulse Rhythm [Finger] Pulse Strength Pulse Strength [Finger] Respiratory Rate Respiratory Rate [Exercises] Respiratory Effort / Characteristics Respiratory Depth Respiratory Pattern Blood Pressure Blood Pressure [Right Arm] Blood Pressure Mean Blood Pressure Mean [Right Arm] Blood Pressure Position [Right Arm] Pulse Oximetry Pulse Oximetry [Exercises] Oxygen Delivery Method Sepsis Recent Fever Within 48 Hours Sepsis New/Unexplained Change in Mental Status Sepsis Action Taken by Nursing Laboratory Data 08/26/24 23:32 08/26/24 23:32 Lab Results 08/26/24 08/26/24 08/27/24 Range/Units 00:00 23:32 00:46 WBC 8.50 (4.8-10.8) K/ul RBC 4.98 (4.70-6.10) M/uL Hgb 14.9 (14.0-18.0) g/dl Hct 42.9 (42.0-52.0) % MCV 86.1 (80.0-100.0) fL MCH 29.9 (25.0-34.0) pg MCHC 34.7 (32.0-36.0) g/dL RDW Std Deviation 45.7 (36.4-46.3) fL RDW Coeff of Lindy 14.6 H (11.5-14.5) % Plt Count 180 (130-400) K/uL MPV 10.0 (9.4-12.4) fL Immature Gran % (Auto) 1.1 % Neut % (Auto) 48.5 % Lymph % (Auto) 40.2 % [place] % (Auto) 7.4 % Eos % (Auto) 1.6 % Baso % (Auto) 1.2 % Neut # (Auto) 4.12 (1.40-6.50) K/uL Lymph # (Auto) 3.42 H (1.20-3.40) K/uL [place] # (Auto) 0.63 H (0.11-0.59) K/uL Eos # (Auto) 0.14 (0.00-0.50) K/uL Baso # (Auto) 0.10 (0.00-0.20) K/uL Immature Gran # (Auto) 0.09 (0.01-0.20) K/uL PT 10.7 (9.0-12.0) Seconds INR 1.0 (0.9-1.1) Sodium 139 (136-145) mmol/L Potassium 3.3 L (3.5-5.1) mmol/L Chloride 105 (98-107) mmol/L Carbon Dioxide 24 (21-32) mmol/L Anion Gap 10 (3-11) BUN 14 (6-23) mg/dl Creatinine 0.98 (0.6-1.4) mg/dl Est Cr Clr Drug Dosing Not Reportable eGFR 85.57 BUN/Creatinine Ratio 14.3 (10-20) Glucose 117 H (70-99(Fasting)) mg/dl Calcium 9.5 (8.6-10.3) mg/dl Magnesium 1.7 (1.7-2.4) mg/dl Total Bilirubin 1.0 (0.2-1.0) mg/dl AST 16 (13-39) U/L ALT 13 (7-52) U/L Alkaline Phosphatase 70 (34-104) U/L Troponin I High Sens 3.7 (0-20) pg/ml Total Protein 7.0 (6.0-8.3) gm/dl Albumin 4.4 (3.4-5.0) gm/dl Globulin 2.6 (2.5-4.0) gm/dl Albumin/Globulin Ratio 1.7 (0.9-2) Lipase 39 (11-82) U/L TSH 3.191 (0.300-4.500) uIu/ml Urine Color Yellow Urine Appearance Clear (Clear) Urine pH 5.5 (4.5-7.5) Ur Specific [place] 1.011 (1.000-1.030) Urine Protein Negative (Negative) Urine Glucose (UA) Negative (Negative) Urine Ketones Negative (Negative) Urine Blood Negative (Negative) Urine Nitrite Negative (Negative) Urine Bilirubin Negative (Negative) Urine Urobilinogen Negative (Negative) Ur Leukocyte Esterase Negative (Negative) Urine Opiates Screen Neg (Neg) Ur Methadone, Qual Neg (Neg) Urine Fentanyl Screen Neg (Neg) Urine Barbiturates Neg (Neg) Ur Phencyclidine (PCP) Neg (Neg) U Amphetamin/Meth Scrn Neg (Neg) MDMA (Ecstasy) Screen Neg (Neg) U Benzodiazepines Scrn Neg (Neg) Ur Cocaine Metabolite Neg (Neg) U Marijuana (THC) Screen Pos H (Neg) Ethyl Alcohol mg/dL 336.8 H (<10.0) mg/dl Administered Medications Acetaminophen (Acetaminophen 325 Mg Tab) 650 mg PO Q6H [facility] Stop: 09/26/24 11:59 Last Admin: 08/27/24 18:08 Dose: 650 mg Documented By: Admin: 08/27/24 13:04 Dose: 650 mg Documented By: MARY ELLEN Sodium Chloride (Nss) 1,000 mls @ 80 mls/hr IV .[id number] [facility] Stop: 08/28/24 08:44 Last Admin: 08/27/24 21:10 Dose: 80 mls/hr Documented By: Infusion: 08/27/24 21:10 Dose: Infused Documented By: Admin: 08/27/24 09:25 Dose: 80 mls/hr Documented By: MR Thiamine HCl 100 mg/ Syringe 10 mls @ 2 mls/min IV QAM [facility] Stop: 09/26/24 10:29 Last Admin: 08/27/24 11:42 Dose: 2 mls/min Documented By: MARY ELLEN Insulin Aspart (Insulin Aspart Per Unit Charge) 0 units SC ACHS [facility] Stop: 09/26/24 11:29 Last Admin: 08/27/24 21:08 Dose: Not Given Documented By: Admin: 08/27/24 17:37 Dose: Not Given Documented By: MARY ELLEN Admin: 08/27/24 13:04 Dose: 2 units Documented By: MARY ELLEN Co-signed By: CNB Methocarbamol (Methocarbamol 500 Mg Tablet) 500 mg PO TID PRN PRN Reason: pain Stop: 09/26/24 08:59 Last Admin: 08/27/24 21:10 Dose: 500 mg Documented By: KT Miscellaneous (Remove Lidoderm Patch) 1 each N/A DAILY@2100 [facility] Stop: 09/26/24 20:59 Last Admin: 08/27/24 21:11 Dose: 1 each Documented By: KT Miscellaneous (Remove Lidoderm Patch) 1 each N/A DAILY@2100 [facility]EENA Stop: 09/26/24 20:59 Last Admin: 08/27/24 21:11 Dose: 1 each Documented By: KT Discontinued Medications Albuterol (Albut/Ipratrop 3mg/0.5mg Neb 3 Ml Vial) 3 ml NEB NOW STA; Protocol Stop: 08/27/24 08:04 Last Admin: 08/27/24 08:15 Dose: 3 ml Documented By: SRL Gabapentin (Gabapentin 400 Mg Cap) 800 mg PO NOW ONE Stop: 08/27/24 10:10 Last Admin: 08/27/24 11:42 Dose: 800 mg Documented By: MARY ELLEN Gabapentin (Gabapentin 400 Mg Cap) 400 mg PO Q6H [facility] Stop: 08/27/24 22:01 Last Admin: 08/27/24 21:10 Dose: 400 mg Documented By: Admin: 08/27/24 18:09 Dose: 400 mg Documented By: MARY ELLEN Sodium Chloride (Nss) 1,000 mls @ 125 mls/hr IV .Q8H [facility] Stop: 08/27/24 23:44 Last Infusion: 08/27/24 09:24 Dose: Infused Documented By: Admin: 08/27/24 08:15 Dose: 125 mls/hr Documented By: Infusion: 08/27/24 06:38 Dose: Infused Documented By: Admin: 08/27/24 00:33 Dose: 125 mls/hr Documented By: BRANDEN Acetaminophen (Ofirmev) 1,000 mg in 100 mls @ 400 mls/hr IV NOW STA Stop: 08/27/24 03:20 Last Infusion: 08/27/24 04:32 Dose: Infused Documented By: Admin: 08/27/24 03:25 Dose: 400 mls/hr Documented By: AISHWRAYA Ioversol (Optiray 320 100ml) 94 ml IV ONCE ONE Stop: 08/27/24 05:07 Last Admin: 08/27/24 05:07 Dose: 94 ml Documented By: BRNeil Lidocaine (Lidocaine 5% 1 Patch) 1 patch TD NOW STA Stop: 08/27/24 08:04 Last Admin: 08/27/24 08:14 Dose: 1 patch Documented By: SRL Potassium Chloride (Potassium Chloride Crtab 20 Meq Tabcr) 40 meq PO NOW STA Stop: 08/27/24 08:31 Last Admin: 08/27/24 08:37 Dose: 40 meq Documented By: MR Imaging Data Radiologist's Impression: Face CT 08/26/24 23:52 EXAM: CT facial bones wo con CLINICAL HISTORY: +ETOH. Patient was found lying supine in the grass by EMS. Patient told this RN that he wants to but states he doesn't know why and he has no plan at all to do so. Patient is a chronic alcoholic. Patient states "I got really drunk and smoked a lot of weed" as his reason for being brought to the hospital tonight. TECHNIQUE: Computed tomography of the orbits/face was performed without intravenous contrast. Contiguous axial images were obtained. Reformatted coronal and sagittal images were also reviewed. CT scan was performed according to ALARA (as low as reasonable achievable). COMPARISON: none. FINDINGS: Minimal left maxillary sinusitis. No acute facial fractures. Rest of paranasal sinuses and mastoid air cells are clear. The globes, optic nerves, extraocular muscles and retro-orbital fat are grossly unremarkable. Reformatted imaging demonstrates intact roof and floor of the orbits. Included portions of the mandible are intact. The included intracranial substances and airway are unremarkable. IMPRESSION: Minimal left maxillary sinusitis. Electronically signed by Devon Reyes 08-27-2024 01:[address] 08/26/24 23:53 EXAM: CT cervical spine wo con CLINICAL HISTORY: ETOH. Patient was found lying supine in the grass by EMS. Patient told this RN that he wants to but states he doesn''t know why and he has no plan at all to do so. Patient is a chronic alcoholic. Patient states "I got really drunk and smoked a lot of weed" as his reason for being brought to the hospital tonight. TECHNIQUE: Computed tomography of the cervical spine performed without intravenous contrast. Contiguous axial images were obtained from the skull base to T2, with sagittal and coronal reformatted images reconstructed from the axial data. CT scan was performed according to ALARA (as low as reasonable achievable). COMPARISON: None. FINDINGS: The normal cervical lordotic curvature is maintained. Degenerative changes involving cervical spine in the form of multilevel marginal osteophytes, disc space reduction and facetal arthrosis. Cervical vertebral bodies are normal in height and alignment, with no evidence of fracture or subluxation. Lateral masses of C1 are symmetrical, and the dens is intact. Prevertebral soft tissues are not widened. The remaining suprahyoid and infrahyoid soft tissues in the neck are unremarkable. Posterior uncovertebral arthrosis is noted at C3-C4 to C5-C6 levels, which indenting ventral thecal sac and causes bilateral neuroforaminal narrowing. Thyroid gland appears unremarkable. IMPRESSION: 1.No acute fracture or subluxation in the cervical spine. 2.Cervical spondylosis. Electronically signed by Devon Reyes 08-27-2024 01:31 AM Chest X-Ray 08/26/24 23:53 EXAM: XR chest 1V portable CLINICAL HISTORY: TRAUMA BEST POSSIBLE, ETOH TECHNIQUE: An X-ray image of the chest is obtained in AP projection. COMPARISON: No prior studies are available for comparison. FINDINGS: Pulmonary Parenchyma: Prominent coarse bronchovascular markings. No evidence of consolidation, collapse, or focal opacities. No pulmonary nodules are identified. No evidence of pleural effusion or pleural thickening. Heart and Mediastinum: Heart size and shape are normal. No mediastinal widening or masses. No hilar or mediastinal lymphadenopathy. Bony Thorax: The bony thorax appears intact without fractures or deformities. Chronic fractures at the left mid ribs. Soft Tissues: Soft tissues overlying the chest wall are unremarkable. IMPRESSION: 1. Prominent and coarse bronchovascular markings may suggest chronic bronchitis/congestion/Pulmonary edema. 2. No consolidation, pneumothorax or pleural effusion. 3. Chronic fracture at a few left mid ribs. No acute fracture is visualized in these views. Electronically signed by Ny Mars 08-27-2024 02:[address] 08/26/24 23:53 EXAM: CT head/brain wo con CLINICAL HISTORY: +ETOH. Patient was found lying supine in the grass by EMS. Patient told this RN that he wants to but states he doesn't know why and he has no plan at all to do so. Patient is a chronic alcoholic. Patient states "I got really drunk and smoked a lot of weed" as his reason for being brought to the hospital tonight. TECHNIQUE: Multiple axial images are obtained from the skull base to the vertex without contrast. CT scan was performed according to ALARA (as low as reasonable achievable). COMPARISON: None. FINDINGS: There is cerebral atrophy. No evidence of space occupying lesion, hemorrhage, edema, mass effect, midline shift, extra axial collection, or hydrocephalus is noted. Basal cisterns are symmetric and normal in size and configuration. There are scattered periventricular hypodensities as can be seen with chronic microvascular ischemic changes. The james-white matter differentiation is preserved. Visualized paranasal sinuses and mastoid air cells are well aerated. Orbital contents are within normal limits. Bony structures are intact. IMPRESSION: 1. No evidence of acute intracranial abnormality is demonstrated. 2. Chronic microvascular ischemic changes. 3. Cerebral atrophy. Electronically signed by Devon Reyes 08-27-2024 01:27 AM Pelvis X-Ray 08/26/24 23:53 EXAM: XR pelvis 1-2V routine CLINICAL HISTORY: TRAUMA BEST POSSIBLE, ETOH TECHNIQUE: X-ray images of the pelvis were obtained in anteroposterior (AP) projection. COMPARISON: Reviewed CT abdomen and pelvis dated: 12/05/2017. FINDINGS: Bone Structure: Pelvic bones, including the iliac wings, ischium, pubis, and sacrum, are normal and intact. No evidence of fractures, dislocations, or significant osseous lesions. Hip Joints: Reduced bilateral hip joint spaces with minimal marginal osteophytes. Acetabulum: Acetabular structures appear normal and intact. No signs of acetabular fracture or dysplasia. Symphysis Pubis: The symphysis pubis is normal and intact. No evidence of separation or widening. Sacroiliac Joints: Sacroiliac joints appear normal and unremarkable. No evidence of sacroiliitis or significant degenerative changes. Soft Tissues: Visualized soft tissues are normal and unremarkable. No soft tissue swelling, or masses. Vascular calcification seen. Additional Findings: No other significant abnormalities noted. IMPRESSION: 1. Bilateral hip joint osteoarthritic changes. 2. No obvious/definite acute bony abnormality. 3. No significant interval changes. Disclaimer: A subtle bone abnormality or fracture may not be readily apparent on X-rays, thus clinical correlation and further imaging including follow-up CT, MRI, or follow-up X-rays are advised as needed. Electronically signed by Ny Mars 08-27-2024 02:29 AM Shoulder X-Ray 08/27/24 03:06 EXAM: XR shoulder LT min 2V routine CLINICAL HISTORY: TRAUMA BEST POSSIBLE, ETOH JMF TECHNIQUE: X-ray images of the left shoulder were obtained in anteroposterior (AP) and Y-view projections. COMPARISON: No prior studies are available for comparison. FINDINGS: suboptimal study Bone Structure: Bone structure is normal and aligned. No evidence of fracture. Anterior dislocation can't be excluded in the lateral view (poor film penetration), clinical evaluation is advised. No osseous lesions or abnormalities were identified. Cortical discontinuity was seen at the lateral aspect of the left 3rd rib which may suggest non displaced rib fracture. Joint Spaces: Glenohumeral and acromioclavicular joint spaces are normal. No evidence of joint effusion or subluxation. Soft Tissues: Soft tissues appear normal and unremarkable. No soft tissue swelling, calcifications, or foreign bodies were noted. Additional Findings: No signs of osteoarthritis, bone spurs, lytic or sclerotic lesions. IMPRESSION: 1. No evidence of acute fracture or significant soft tissue abnormalities of the left shoulder. Anterior dislocation can't be excluded in the lateral view (poor film penetration), clinical evaluation is advised. The humeral head is properly positioned in the AP view. 2. Suspected left 3rd rib fracture for better assessment with rib views. Disclaimer: A subtle bone abnormality or fracture may not be readily apparent on X-rays, thus clinical correlation and further imaging including follow-up CT, MRI, or follow-up X-rays are advised as needed. Electronically signed by Ny Mars 08-27-2024 04:[address] 08/27/24 04:46 EXAM: CT chest diagnostic w con CLINICAL HISTORY: trauma, abn cxr per rad, TECHNIQUE: Contiguous 3.[address] images of the chest were acquired with administration of intravenous contrast. Coronal and sagittal reconstructions were obtained. 94 ml optiray 320 was administered for post contrast images. One of the following dose reduction techniques were utilized for this exam: Automated exposure control, adjustment of the mA and/or kV according to patient size, and use of iterative reconstruction. CTDI 19.95 mGy, DLP 723.67 mGy-cm COMPARISON: Xray dated 08/26/2024 FINDINGS: Lungs: Minimal apical reticulation likely old granulomatous Upper and lower lung lobes centrilobular emphysematous changes Lower lobes atelectatic plates in the peribronchial thickening. No definite pulmonary consolidation No pleural effusion or pleural thickening. Mediastinum: No mediastinal mass or abnormal lymphadenopathy. Normal appearance of the thymus. Hilar Structures: Normal size and configuration, no enlargement. Heart and Great Vessels: Normal heart size and configuration. No pericardial effusion. Normal caliber and course of the thoracic aorta and other great vessels. No significant atherosclerosis or aneurysm. Normal enhancement of the great vessels post-contrast. Pulmonary Arteries: No evidence of pulmonary embolism. Normal size and course of the pulmonary arteries. Esophagus: Normal course and caliber. No masses or dilatation. Bones: Comminuted fracture of lateral segment of the left third rib with mild displacement of the fractured segments and mild left pleural reaction. No related pulmonary contusion Other nondisplaced fractures of the anterior lateral segments of the left fifth and sixth ribs Advanced thoracic spondylosis with mild reduced height/wedging of the mid-thoracic vertebrae without complete vertebral collapse Upper Abdomen: Visualized portions of the liver, spleen, pancreas, adrenal glands, and kidneys are normal. No abnormalities were noted in the visualized upper abdominal organs. Thyroid: Normal size and morphology. No nodules or masses. IMPRESSION: 1. Comminuted fracture of lateral segment of the left third rib with mild displacement of the fractured segments and mild left pleural reaction. No related pulmonary contusion. 2. Other nondisplaced fractures of the anterior lateral segments of the left fifth and sixth ribs. 3. Upper and lower lung lobes centrilobular emphysematous changes. 4. Bilateral lower lobe atelectatic changes. 5. No signs of acute inflammatory changes. 6. Advanced thoracic spondylosis with mild reduced height/wedging of the mid-thoracic vertebrae without complete vertebral collapse. 7. Clinical correlation is advised. Electronically signed by Ny Mars 08-27-2024 06:03 AM Abdomen/Pelvis CT 08/27/24 06:11 EXAM: CT abd pelvis wo con CLINICAL HISTORY: Fall, diffuse pain. TECHNIQUE: Non-contrast CT of the abdomen and pelvis was performed, with the following protocol: axial images, and reconstructed coronal and sagittal images. One of the following dose reduction techniques was utilized for this exam: Automated exposure control, adjustment of the mA and/or kV according to patient size, and use of iterative reconstruction. COMPARISON: Comparison is made with prior study dated 12/05/2017 FINDINGS: Abdomen: Liver: Enlarged in size (LS-16.9cm). Normal shape, and density. No focal lesions, cysts, or masses were identified. Gallbladder and Biliary System: The gallbladder is normal in size and shape. No wall thickening, pericholecystic fluid, or gallstones were identified. Pancreas: Pancreatic head, body, and tail are visualized and appear normal in size and density. No pancreatic masses or calcifications were noted. Spleen: Normal in size, shape, and density. No splenic lesions or masses were identified. Appendix: The appendix is normal in size without danny appendiceal fat stranding, and without an appendicolith. No evidence of appendiceal abscess or perforation. Kidneys and Adrenal Glands: Both kidneys are normal in size, shape, and position. Cortical thickness is within normal limits. No renal calculi or hydronephrosis. Bilateral renal cysts, largest at left side measuring 25x23.3mm Excreted contrast seen in collecting system (sequel of contrast-enhanced CT chest study done earlier) Right adrenal lesion measuring 16.4x13.3mm Left adrenal gland is unremarkable. Abdominal Aorta and Vessels: The abdominal aorta and major branches are patent without evidence of an aneurysm or significant atherosclerosis. Pelvis: Urinary Bladder: Normal in contour and wall thickness. No intraluminal lesions. Prostate: calcific foci seen Peritoneal and Retroperitoneal Structures: No free fluid or abnormal fluid collections were identified within the abdomen or pelvis. No lymphadenopathy was noted. Bowel: The visualized bowel loops are normal in caliber and appearance. No evidence of bowel obstruction or wall thickening. Bones and Soft Tissues: Lumbar spondylosis seen as sclerosed end plates, schmorl nodes and reduced disc height with facet joint arthropathy No fractures or abnormal masses were identified. cuts taken through base of the lung shows bilateral parenchymal bands IMPRESSION: 1. No intraperitoneal-free or localized collection 2. No intraperitoneal or retroperitoneal hematomas seen 3. No fractures or abnormal masses were identified. 4. Mild hepatomegaly 5. Bilateral renal cysts, largest at left side measuring 25x23.3mm 6. Right adrenal lesion measuring 16.4x13.3mm 7. No interval changes Electronically signed by Ny Mars 08-27-2024 07:24 AM Discharge Plan Visit Data Chief Complaint: Mental Health Evaluation Stated Complaint: ALCOHOL OVERDOSE, KEEPS SAYING HE WANTS TO ED Provider: Kaylyn Dave Discharge Problem: Alcohol intoxication, CHI (closed head injury), Marijuana use, Acute pain of right shoulder, Abrasion of left middle finger, Multiple fractures of ribs Patient Disposition: Admitted As Inpatient Discharge Instructions Interventions: ED Discharge Assessment Last Done: 08/27/24 09:32
[2024-08-27 00:29] LABS: Alanine Aminotransferase 13 U/L (7-52); Albumin Globulin Ratio 1.7 (0.9-2); Albumin Level 4.4 gm/dl (3.4-5.0); Alkaline Phosphatase 70 U/L (34-104); Anion Gap 10 (3-11); Aspartate Aminotransferase 16 U/L (13-39); BUN Creatinine Ratio 14.3 (10-20); Blood Urea Nitrogen 14 mg/dl (6-23); Calcium 9.5 mg/dl (8.6-10.3); Carbon Dioxide 24 mmol/L (21-32); Chloride 105 mmol/L (98-107); Globulin 2.6 gm/dl (2.5-4.0); Glucose 117 mg/dl (70-99(Fasting)); Lipase 39 U/L (11-82); Magnesium 1.7 mg/dl (1.7-2.4); Potassium 3.3 mmol/L (3.5-5.1); Sodium 139 mmol/L (136-145)
[2024-08-27] MEDS: SODIUM CHLORIDE 0.9% 1,000 ML IV SCH ×2 (00:33→09:25)
[2024-08-27 00:36] LABS: Troponin I High Sensitivity 3.7 pg/ml (0-20)
[2024-08-27 00:38] LABS: Basophils % (auto) 1.2 %; Eosinophils # (auto) 0.14 K/uL (0.00-0.50); Eosinophils % (auto) 1.6 %; Hematocrit (blood only) 42.9 % (42.0-52.0); Hemoglobin 14.9 g/dl (14.0-18.0); Immature Granulocytes # (auto) 0.09 K/uL (0.01-0.20); Immature Granulocytes % (auto) 1.1 %; Lymphocytes # (auto) 3.42 K/uL (1.20-3.40); Lymphocytes % (auto) 40.2 %; Mean Corpuscular Hemoglobin 29.9 pg (25.0-34.0); Mean Corpuscular Hgb Conc 34.7 g/dL (32.0-36.0); Mean Corpuscular Volume 86.1 fL (80.0-100.0); Monocytes # (auto) 0.63 K/uL (0.11-0.59); Monocytes % (auto) 7.4 %; Neutrophils # (auto) 4.12 K/uL (1.40-6.50); Neutrophils % (auto) 48.5 %; Platelet Count 180 K/uL (130-400); RDW Coefficient of Variation 14.6 % (11.5-14.5); RDW Standard Deviation 45.7 fL (36.4-46.3); Red Blood Count 4.98 M/uL (4.70-6.10)
[2024-08-27 00:45] LABS: Thyroid Stimulating Hormone 3.191 uIu/ml (0.300-4.500)
[2024-08-27 00:53] LABS: Prothrombin Time 10.7 Seconds (9.0-12.0)
[2024-08-27 01:01] LABS: Appearance Urine Clear (Clear); Bilirubin Urine Negative (Negative); Blood Urine Negative (Negative); Color Urine Yellow; Glucose Urine UA Negative (Negative); Ketones Urine Negative (Negative); Leukocyte Esterase Urine Negative (Negative); Nitrite Urine Negative (Negative); Protein Urine Negative (Negative); Specific Gravity Urine 1.011 (1.000-1.030); Urobilinogen Urine Negative (Negative); pH Urine 5.5 (4.5-7.5)
--- NOTE | 2024-08-27 01:27 | CT Scan Report ---
EXAM: CT head/brain wo con CLINICAL HISTORY: +ETOH. Patient was found lying supine in the grass by EMS. Patient told this RN that he wants to but states he doesn't know why and he has no plan at all to do so. Patient is a chronic alcoholic. Patient states "I got really drunk and smoked a lot of weed" as his reason for being brought to the hospital tonight. TECHNIQUE: Multiple axial images are obtained from the skull base to the vertex without contrast. CT scan was performed according to ALARA (as low as reasonable achievable). COMPARISON: None. FINDINGS: There is cerebral atrophy. No evidence of space occupying lesion, hemorrhage, edema, mass effect, midline shift, extra axial collection, or hydrocephalus is noted. Basal cisterns are symmetric and normal in size and configuration. There are scattered periventricular hypodensities as can be seen with chronic microvascular ischemic changes. The james-white matter differentiation is preserved. Visualized paranasal sinuses and mastoid air cells are well aerated. Orbital contents are within normal limits. Bony structures are intact. IMPRESSION: 1. No evidence of acute intracranial abnormality is demonstrated. 2. Chronic microvascular ischemic changes. 3. Cerebral atrophy. Electronically signed by Devon Reyes 08-27-2024 01:27 AM
--- NOTE | 2024-08-27 01:31 | CT Scan Report ---
EXAM: CT cervical spine wo con CLINICAL HISTORY: ETOH. Patient was found lying supine in the grass by EMS. Patient told this RN that he wants to but states he doesn''t know why and he has no plan at all to do so. Patient is a chronic alcoholic. Patient states "I got really drunk and smoked a lot of weed" as his reason for being brought to the hospital tonight. TECHNIQUE: Computed tomography of the cervical spine performed without intravenous contrast. Contiguous axial images were obtained from the skull base to T2, with sagittal and coronal reformatted images reconstructed from the axial data. CT scan was performed according to ALARA (as low as reasonable achievable). COMPARISON: None. FINDINGS: The normal cervical lordotic curvature is maintained. Degenerative changes involving cervical spine in the form of multilevel marginal osteophytes, disc space reduction and facetal arthrosis. Cervical vertebral bodies are normal in height and alignment, with no evidence of fracture or subluxation. Lateral masses of C1 are symmetrical, and the dens is intact. Prevertebral soft tissues are not widened. The remaining suprahyoid and infrahyoid soft tissues in the neck are unremarkable. Posterior uncovertebral arthrosis is noted at C3-C4 to C5-C6 levels, which indenting ventral thecal sac and causes bilateral neuroforaminal narrowing. Thyroid gland appears unremarkable. IMPRESSION: 1.No acute fracture or subluxation in the cervical spine. 2.Cervical spondylosis. Electronically signed by Devon Reyes 08-27-2024 01:31 AM
--- NOTE | 2024-08-27 01:36 | CT Scan Report ---
EXAM: CT facial bones wo con CLINICAL HISTORY: +ETOH. Patient was found lying supine in the grass by EMS. Patient told this RN that he wants to but states he doesn't know why and he has no plan at all to do so. Patient is a chronic alcoholic. Patient states "I got really drunk and smoked a lot of weed" as his reason for being brought to the hospital tonight. TECHNIQUE: Computed tomography of the orbits/face was performed without intravenous contrast. Contiguous axial images were obtained. Reformatted coronal and sagittal images were also reviewed. CT scan was performed according to ALARA (as low as reasonable achievable). COMPARISON: none. FINDINGS: Minimal left maxillary sinusitis. No acute facial fractures. Rest of paranasal sinuses and mastoid air cells are clear. The globes, optic nerves, extraocular muscles and retro-orbital fat are grossly unremarkable. Reformatted imaging demonstrates intact roof and floor of the orbits. Included portions of the mandible are intact. The included intracranial substances and airway are unremarkable. IMPRESSION: Minimal left maxillary sinusitis. Electronically signed by Devon Reyes 08-27-2024 01:36 AM
[2024-08-27 01:39] LABS: Amphetamines+Metham, Urine Neg (Neg); Barbiturates, Urine Neg (Neg); Benzodiazepine, Urine Neg (Neg); Cocaine, Urine Neg (Neg); Fentanyl, Urine Neg (Neg); MDMA (Ecstacy), Urine Neg (Neg); Marijuana, Urine Pos (Neg); Methadone, Urine Neg (Neg); Opiate, Urine Neg (Neg); Phencyclidine, Urine Neg (Neg)
--- NOTE | 2024-08-27 02:04 | XRay Report ---
EXAM: XR chest 1V portable CLINICAL HISTORY: TRAUMA BEST POSSIBLE, ETOH TECHNIQUE: An X-ray image of the chest is obtained in AP projection. COMPARISON: No prior studies are available for comparison. FINDINGS: Pulmonary Parenchyma: Prominent coarse bronchovascular markings. No evidence of consolidation, collapse, or focal opacities. No pulmonary nodules are identified. No evidence of pleural effusion or pleural thickening. Heart and Mediastinum: Heart size and shape are normal. No mediastinal widening or masses. No hilar or mediastinal lymphadenopathy. Bony Thorax: The bony thorax appears intact without fractures or deformities. Chronic fractures at the left mid ribs. Soft Tissues: Soft tissues overlying the chest wall are unremarkable. IMPRESSION: 1. Prominent and coarse bronchovascular markings may suggest chronic bronchitis/congestion/Pulmonary edema. 2. No consolidation, pneumothorax or pleural effusion. 3. Chronic fracture at a few left mid ribs. No acute fracture is visualized in these views. Electronically signed by Ny Mars 08-27-2024 02:04 AM
--- NOTE | 2024-08-27 02:30 | XRay Report ---
EXAM: XR pelvis 1-2V routine CLINICAL HISTORY: TRAUMA BEST POSSIBLE, ETOH TECHNIQUE: X-ray images of the pelvis were obtained in anteroposterior (AP) projection. COMPARISON: Reviewed CT abdomen and pelvis dated: 12/05/2017. FINDINGS: Bone Structure: Pelvic bones, including the iliac wings, ischium, pubis, and sacrum, are normal and intact. No evidence of fractures, dislocations, or significant osseous lesions. Hip Joints: Reduced bilateral hip joint spaces with minimal marginal osteophytes. Acetabulum: Acetabular structures appear normal and intact. No signs of acetabular fracture or dysplasia. Symphysis Pubis: The symphysis pubis is normal and intact. No evidence of separation or widening. Sacroiliac Joints: Sacroiliac joints appear normal and unremarkable. No evidence of sacroiliitis or significant degenerative changes. Soft Tissues: Visualized soft tissues are normal and unremarkable. No soft tissue swelling, or masses. Vascular calcification seen. Additional Findings: No other significant abnormalities noted. IMPRESSION: 1. Bilateral hip joint osteoarthritic changes. 2. No obvious/definite acute bony abnormality. 3. No significant interval changes. Disclaimer: A subtle bone abnormality or fracture may not be readily apparent on X-rays, thus clinical correlation and further imaging including follow-up CT, MRI, or follow-up X-rays are advised as needed. Electronically signed by Ny Mars 08-27-2024 02:29 AM
[2024-08-27] MEDS: ACETAMINOPHEN 1,000 MG/100 ML VIAL IV STA (03:25)
--- OUTSIDE RECORDS SUMMARY | 2024-08-27 03:55 | External Medical Summary ---
Author Name Unknown Address Unknown Organization [id number]:[facility] [place] [address] [facility] [address] Laboratory Report Ordering Provider Test Date Status BILLY TERRY 06/09/2024 16:06:21 Final Observation Date Value Abnormality Reference (Units ) Status HbA1C 06/09/2024 16:06:21 6.2 Above high normal 4. 0-5.6 (%) Final The use of HbA1c to monitor glycemic status is based on normal hemoglobin and HbA composition. This test should not be used in patients with abnormal hemoglobin that affects the half life of the red blood cell or the in vivo glycation rates. Glucose, estimated average 06/09/2024 16:06:21 131 Above high normal <126 (mg/dL) Cayetano espino Performing Location [facility] [place] [address] [facility] [id number]
--- OUTSIDE RECORDS SUMMARY | 2024-08-27 03:55 | External Medical Summary | Summary of Care ---
Author Name Unknown Organization [facility] Address [address] [place] [address] Phone [phone] Care Team Providers Care Business Reporting Developer Name Role Phone Melody Martel DO Primary Care Provider Reason for Visit * Reason Comments Outpatient Testing Encounter Details Date Type Department Care Team (Late st Contact Info) Description 06/09/2024 4:10 PM EST Laboratory Laboratory [facility] [address] [place] [phone] [facility] [address] [place] [address] Type 2 diabetes mellitus with hemoglobin A1c goal of less than 7.0% ([facility]) Allergies Active Allergy Reactions Criticality Noted Date Comments Pollen Other (Please comment) 11/12/2015 Sneezing, watery eyes, runny nose Ragweed Other (Please comment) 11/12/2015 Sneezing, watery eyes, runny nose documented as of this encounter (statuses as of 06/09/2024) Medications CYCLOBENZAPRINE HCL 5 MG PO TABS as needed for back injuries Active triamcinolone acetonide (ARISTOCORT) 0.1 % cream Apply topically to affected area 2 times a day. To affected area. 80 g 5 6 Active aspirin 81 MG chewable tablet Take 1 Tab by mouth daily. with food. 100 Tab 5 7 Active Naltrexone HCl 50 MG Oral Tablet (Revia) Take 1 Tablet by mouth in the morning. 1 Active Diclofenac Sodium 1 % External Gel Apply topically to affected area. Apply to shoulder 1 Active Hydrocortisone 2.5 % External Cream Apply topically to affected area 3 times a day . To affected area. 30 g 5 2 Active Hydrocortisone 2.5 % External Lotion Apply topically to affected area 3 times a day . To affected area in ears, and on scalp 118 mL 1 2 Active Latanoprost 0.005 % Ophthalmic Solution (Xalatan)Indicati ons:Primary open-angle glaucoma, right eye, mild stage INSTILL 1 DROP INTO THE RIGHT EYE AT BEDTIME DIRECTED 2 Active hydrOXYzine Pamoate 50 MG Oral Capsule (Vistaril) TAKE 2 CAPSULES BY MOUTH AT BEDTIME 60 Capsule 3 Active Atorvastatin Calcium 20 MG Oral Tablet (Lipitor)Indicati ons:Dyslipidemia, goal LDL below 70 Take 1 Tablet by mouth in the morning. 90 Tablet 3 4 Active Sildenafil Citrate 100 MG Oral Tablet (Viagra)Indicatio ns:Erectile dysfunction, unspecified erectile dysfunction type Take 1 Tablet by mouth daily as needed for Erectile Dysfunction. 1-4 hours before intercourse, no more than 1 dose in 24 hours. 10 Tablet 5 4 Active hydroCHLOROthiazi de 25 MG Oral Tablet (Hydrodiuril)Rhiannon cations:Essential hypertension TAKE 1 AND 1/2 TABLETS BY MOUTH EVERY MORNING 45 Tablet 4 Active Lisinopril 40 MG Oral Tablet Take 1 Tablet by mouth in the morning. 30 Tablet 4 Active metFORMIN HCl ER 500 MG Oral Tablet Extended Release 24 Hour (Glucophage XR)Indications:Ty pe 2 diabetes mellitus with hemoglobin A1c goal of less than 7.0% (HCC) Take 4 Tablets by mouth in the morning. 120 Tablet 4 Active Pioglitazone HCl 30 MG Oral Tablet (Actos)Indication s:Type 2 diabetes mellitus with hemoglobin A1c goal of less than 7.0% (HCC) Take 1 Tablet by mouth in the morning. 30 Tablet 4 Active documented as of this encounter (statuses as of 06/09/2024) Active Problems Problem Noted Date Diagnosed Date Major depressive disorder wi th single episode, in partial remission 12/20/2023 Other male erectile dysfunction 12/09/2022 Chronic left shoulder pain 12/09/2022 Chronic radicular cervical pain 12/09/2022 Primary open-angle glaucoma, right eye, mild sta ge 09/08/2022 Alcohol dependence in remission 08/07/2021 Chronic obstructive pulmonary disease 07/12/2021 Unspecified mood (affective) disorder 07/12/2021 Major depressive disorder with single episode Essential hypertension with goal blood pressure less than 140/90 11/26/2015 Anxiety 11/12/2015 Dyslipidemia, goal LDL below 70 11/12/2015 Type 2 diabetes mellitus wit h hemoglobin A1c goal of less than 7.0% 05/12/2014 Overview (11/23/2015): ICD-10 update of inactive term Benign neoplasm of colon 01/25/2009 Overview (02/02/2009): hyperplastic/ repeat colonoscopy in 5 yrs documented as of this encounter (statuses as of 06/09/2024) Resolved Problems Problem Noted Date Diagnosed Date Resolved Date Chronic bronchitis 09/08/2022 3 Alcohol abuse with intoxication, unspecified 1 09/08/2022 HTN, goal below 140/90 11/12/201503/10 documented as of this encounter (statuses as of 06/09/2024) Immunizations Name Administration Dates Next Due COVID-19 mRNA, LNP-s, No Pre serve, 2-Dose Series (Moderna) 06/28/2021 COVID-19, MRNA-LNP, PF, 30 M CG/0.3 mL, 12 YRS AND ABOVE, IM (PFIZER-Comirnaty) 06/11/2023 Covid-19 Ad26, Single Dose (Liz/J&J) 021 Hepatitis B, 20+ yrs 01/08/1993 PPD 11/30/2015,01/18/2015,01/11/2015 Pneumococcal Conjugate Vacci ne, 20-valent ([id number]) 09/08/2022 Pneumococcal Polysaccharide PPV23 (Pneumovax) 06/17/2014 Seasonal Influenza Vac., MDV , IM, 0.5 mL (Fluzone) 05/05/2014 Seasonal Influenza, PF, 6 M & above, IM , (FluLaval or Fluzone) 06/05/2023,06/13/2022,06/15/2021 Seasonal Influenza, Quadriva lent, No Preserve, IM 08/12/2015 TDAP (age 10 and older)(Boostrix) 05/05/2014 Zoster Vaccine Recombinant (Shingrix) 07/12/2021 ,01/10/2021 documented as of this encounter Social History Tobacco Use Types Packs/Day Years Used Date Smoking Tobacco: Former Cigarettes 1 25 0 07/30/1995 - 07/30/2020 Smokeless Tobacco: Never Alcohol Use Standard Drinks/Week Comments No 0 (1 standard drink = 0.6 oz pur e alcohol) Hunger Vital Sign Answer Date Recorded Within the past 12 months, y ou worried that your food would run out before you got the money to buy more. Never true 12/14/19 21 Within the past 12 months, t he food you bought just didn't last and you didn't have money to get more. Never true 12/13/2020 Sex and Gender Information Value Date Recorded Sex Assigned at Not on file Legal Sex Male 6:42 AM EST Gender Identity Not on file Sexual Orientation Not on file documented as of this encounter Plan of Treatment Upcoming Encounters Date Type Department Care Team (Late st Contact Info) Description 12/08/2024 3:00 PM EDT Office Visit Family Practice [facility] [address] [facility] [place] [address] Melody Martel, [address] [facility] [address] [place] [address] Pending Results Name Type Priority Associated Diagnoses Date /Time HEMOGLOBIN A1C Lab Routine Type 2 diabetes mellitus with hemoglobin A1c goal of less than 7.0% (HCC) 06/09/2024 4:06 PM EST Scheduled Procedures Name Priority Associated Diagnoses Date/Ti me COLONOSCOPY FLEXIBLE PROXIMA L DIAGNOSTIC Recall History of colon polyps Family history of colon cancer Health Maintenance Due Date Last Done Comments Hepatitis B Vaccine (2 of 3 - 19+ 3-dose series) 02/05/1993 01/08/1993 Cologuard 2003 Fecal Occult Blood Test 2003 Sigmoidoscopy 2003 Depression Monitoring 03/10/2017 03/10/2016 *COPD SEVERITY VERIFIED BY PFT 08/10/2021 Diabetic Foot Exam 01/10/2023 01/10/2022, 0 01/10/2021, 08/12/2015, Additional history exists COVID-19 Vaccine ( season) 2024 06/11/2023, 06/28/2021, 11/28/2020 Influenza Vaccine (FLU shot) (#1) 2024 06/05/2023, 06/13/2022, 06/15/2021, Additional history exists DTap/Tdap Vaccines (2 - Td or Tdap) 05/05/2024 05/05/2014 HbA1c 06/04/2024 12/03/2023, 1107/2022, 12/04/2022, Additional history exists Albumin/Creatinine Ratio 12/02/2024 024, 06/01/2023, 01/16/2022, Additional history exists GFR 12/02/2024 12/03/2023, 05/0 02/2023, 01/16/2022, Additional history exists Diabetic Eye Exam 04/28/2025 04/28/2024, , 04/23/2024, Additional history exists O2 ASSESSMENT COMPLETED IN PAST YEAR FOR COPD 06/09/2025 06/09/2024 Colonoscopy 03/28/2026 03/28/2021, 08/3 , 08/07/2017, Additional history exists Colorectal Cancer Screening 03/28/2026 Lipid Panel 12/02/2028 12/03/2023, 05/0 02/2023, 01/16/2022, Additional history exists RETIRED - COLONOSCOPY-EVERY 5 YRS AGES 18-100 Discontinued 03/28/2021, 03/28/2021, 08/07/2017, Additional history exists Zoster Vaccines Completed 07/12/2021, 01/10/2021 Pneumococcal Vaccine: 65+ Years Completed 09/08/2022, 06/17/2014 Alpha-1 Antitrypsin Completed 12/04/2022 Lung Cancer Screening Completed 06/11/2023 AAA Screening Completed 12/11/2023 HPV (Gardasil) Vaccine Aged Out No lo nger eligible based on patient's age to complete this topic MENINGOCOCCAL (MENACTRA/MENVEO) Aged Out No longer eligible based on patient's age to complete this topic documented as of this encounter Medical Devices Not on filedocumented as of this encounter Visit Diagnoses Diagnosis Type 2 diabetes mellitus with hemoglobin A1c goal of less than 7.0% (HCC) documented in this encounter Care Teams Business Reporting Developer Relationship Specialty Start Date End Date Melody Martel DO [address] [place] [address] PCP - General Family Medicine 01/13/21 documented as of this encounter
--- OUTSIDE RECORDS SUMMARY | 2024-08-27 03:55 | External Medical Summary | Summary of Care ---
Author Name Unknown Organization [facility] Address [address] [place] [address] Phone [phone] Care Team Providers Care Chore Tender Name Role Phone Melody Martel DO Primary Care Provider Reason for Visit * Reason Onset Date Comments Re-Check Medication Administration 06/09/2024 Flu an d/or Pneumo Inj Encounter Details Date Type Department Care Team (Late st Contact Info) Description 06/09/2024 3:00 PM EST Office Visit Family [facility] [address] [place] [address] Melody Martel DO [address] [place] [address] Type 2 diabetes mellitus with hemoglobin A1c goal of less than 7.0% ([facility])*; Chronic obstructive pulmonary disease, unspecified COPD type ([facility]); Alcohol dependence in remission ([facility]); Major depressive disorder with single episode, in partial remission ([facility]); Primary open-angle glaucoma, right eye, mild stage; Essential hypertension with goal blood pressure less than 140/90; Dyslipidemia, goal LDL below 70; Chronic radicular cervical pain; Need for prophylactic vaccination and inoculation against influenza Allergies Active Allergy Reactions Criticality Noted Date Comments Pollen Other (Please comment) 11/12/2015 Sneezing, watery eyes, runny nose Ragweed Other (Please comment) 11/12/2015 Sneezing, watery eyes, runny nose documented as of this encounter (statuses as of 06/23/2024) Medications CYCLOBENZAPRINE HCL 5 MG PO TABS [...] as of this encounter (statuses as of 06/23/2024) Active Problems Problem Noted Date Diagnosed Date [...] as of this encounter (statuses as of 06/23/2024) Resolved Problems Problem Noted Date Diagnosed Date Resolved Date Chronic bronchitis 09/08/2022 3 Alcohol abuse with intoxication, unspecified 1 09/08/2022 HTN, goal below 140/90 11/12/201503/10 documented as of this encounter (statuses as of 06/23/2024) Immunizations Name Administration Dates Next Due COVID-19 mRNA, LNP-s, No Pre serve, 2-Dose Series (Moderna) 06/28/2021 COVID-19, MRNA-LNP, PF, 30 M CG/0.3 mL, 12 YRS AND ABOVE, IM (PFIZER-Comirnaty) 06/11/2023 Covid-19 Ad26, Single Dose (Liz/J&J) 021 Hepatitis B, 20+ yrs 01/08/1993 PPD 11/30/2015,01/18/2015,01/11/2015 Pneumococcal Conjugate Vacci ne, 20-valent ([id number]) 09/08/2022 Pneumococcal Polysaccharide PPV23 (Pneumovax) 06/17/2014 Seasonal [...] on file documented as of this encounter Last Filed Vital Signs Vital Sign Reading Time Taken Comments Blood Pressure 110/62 06/09/2024 2:58 PM EST man ual Pulse 71 06/09/2024 2:58 PM EST Temperature 36.6 C (97.9 F) 06/09/2024 2:58 PM ES T Respiratory Rate 16 06/09/2024 2:58 PM EST Oxygen Saturation 94% 06/09/2024 2:58 PM EST RA Inhaled Oxygen Concentration - - Weight 77.3 kg (170 lb 8 oz) 06/09/2024 2:58 PM EST Height 170.2 cm (5' 7.01") 06/09/2024 2:58 PM ES T Body Mass Index 26.7 06/09/2024 2:58 PM EST documented in this encounter Progress Notes * Melody Martel, - 06/09/2024 3:26 PM EST Subjective: Doug Mckinney is a 63 year old male. Chief Complaint Patient presents with Re-Check Medication Administration Flu and/or Pneumo Inj HPI: Patient's past medical, surgical, family, and social history were reviewed. Medications, allergies, immunizations, and health care maintenance screenings were also reviewed. Diabetes Follow Up The patient is taking medications as instructed. No medication side effects are described. Compliance with Diet: good Compliance with exercise program: good The patient is not monitoring home blood pressures. The patient denies any acute focal neurologic symptoms. The patient reports no chest pain, no orthopnea, and no dyspnea on exertion. The patient denies intermittent claudication symptoms. Fasting home blood sugar readings: 120 - 140 Hypoglycemic symptoms: absent Visual changes: none Peripheral Neuropathy: none Patient is aware of possibility of myocardial infarction without any symptoms, and poor glycemic control will lead to poorer prognosis. Last Retinal Exam: within the last year PHM: Patient Active Problem List Diagnosis Benign neoplasm of colon Type 2 diabetes mellitus with hemoglobin A1c goal of less than 7.0% ([facility]) Anxiety Dyslipidemia, goal LDL below 70 Essential hypertension with goal blood pressure less than 140/90 Chronic obstructive pulmonary disease ([facility]) Unspecified mood (affective) disorder ([facility]) Major depressive disorder with single episode Alcohol dependence in remission ([facility]) Primary open-angle glaucoma, right eye, mild stage Other male erectile dysfunction Chronic left shoulder pain Chronic radicular cervical pain Major depressive disorder with single episode, in partial remission ([facility]) Current Outpatient Medications Medication Sig Dispense Refill hydroCHLOROthiazide 25 MG Oral Tablet (Hydrodiuril) TAKE 1 AND 1/2 TABLETS BY MOUTH EVERY MORNING 45 Tablet 0 Lisinopril 40 MG Oral Tablet Take 1 Tablet by mouth in the morning. 30 Tablet 0 metFORMIN HCl ER 500 MG Oral Tablet Extended Release 24 Hour (Glucophage XR) Take 4 Tablets by mouth in the morning. 120 Tablet 0 Pioglitazone HCl 30 MG Oral Tablet (Actos) Take 1 Tablet by mouth in the morning. 30 Tablet 0 Atorvastatin Calcium 20 MG Oral Tablet (Lipitor) Take 1 Tablet by mouth in the morning. 90 Tablet 3 Sildenafil Citrate 100 MG Oral Tablet (Viagra) Take 1 Tablet by mouth daily as needed for Erectile Dysfunction. 1-4 hours before intercourse, no more than 1 dose in 24 hours. 10 Tablet 5 hydrOXYzine Pamoate 50 MG Oral Capsule (Vistaril) TAKE 2 CAPSULES BY MOUTH AT BEDTIME 60 Capsule 0 Latanoprost 0.005 % Ophthalmic Solution (Xalatan) INSTILL 1 DROP INTO THE RIGHT EYE AT BEDTIME DIRECTED Hydrocortisone 2.5 % External Cream Apply topically to affected area 3 times a day . To affected area. 30 g 5 Hydrocortisone 2.5 % External Lotion Apply topically to affected area 3 times a day . To affected area in ears, and on scalp 118 mL 1 Diclofenac Sodium 1 % External Gel Apply topically to affected area. Apply to shoulder Naltrexone HCl 50 MG Oral Tablet (Revia) Take 1 Tablet by mouth in the morning. aspirin 81 MG chewable tablet Take 1 Tab by mouth daily. with food. 100 Tab 5 triamcinolone acetonide (ARISTOCORT) 0.1 % cream Apply topically to affected area 2 times a day. Toaffected area. 80 g 5 CYCLOBENZAPRINE HCL 5 MG PO TABS as needed for back injuries (Patient not taking: Reported on 06/09/2024) No current facility-administered medications for this visit. Review of patient's allergies indicates: Allergen Reactions Hay Fever [Pollen] Other (Please comment) Sneezing, watery eyes, runny nose Hay Fever [Ragweed] Other (Please comment) Sneezing, watery eyes, runny nose Objective: BP 110/62 Comment: manual | Pulse 71 | Temp 97.9 F (36.6 C) (Tympanic) | Resp 16 | Ht 5' 7.01" (1.702 m) | Wt 170 lb 8 oz (77.3 kg) | SpO2 94% Comment: RA | BMI 26.70 kg/m | BSA 1.91 m Physical Exam: General: alert, healthy, and no distress Head: Normocephalic, No masses, lesions, tenderness or abnormalities Neck: supple, no adenopathy, no bruits, thyroid normal size, non-tender, without nodularity Heart: regular rate & rhythm, no murmur, and no gallops Lungs: chest symmetric with normal AP diameter, no chest deformities noted, no chest wall tenderness, lungs clear to auscultation Pulses: carotid=2/4 w/o bruits Extremities: less than 2 second capillary refill, no joint deformities, effusion, or inflammation Recent Labs: Lab Results Component Value Date/Time HEMOGLOBIN A1C - [facility] 6.2 (H) 06/09/2024 04:06 PM HEMOGLOBIN A1C - [facility] 7.0 (H) 12/03/2023 08:07 AM HEMOGLOBIN A1C - [facility] 6.1 (H) 05/30/2023 07:09 AM HEMOGLOBIN A1C - [facility] 6.3 06/21/2016 09:05 AM HEMOGLOBIN A1C - [facility] 8.9 (H) 03/10/2016 01:04 PM HEMOGLOBIN A1C - [facility] 8.3 (H) 10/04/2015 08:40 AM Lab Results Component Value Date/Time CREATININE - [facility] 1.0 12/03/2023 08:07 AM CREATININE - [facility] 1.2 12/04/2022 07:28 AM CREATININE - [facility] 1.0 01/16/2022 09:13 AM CREATININE - [facility] 1.0 10/04/2015 08:40 AM CREATININE - [facility] 1.0 06/16/2014 10:06 AM CREATININE, RANDOM URINE - [facility] 38 12/03/2023 08:10 AM CREATININE, RANDOM URINE - [facility] 70 06/01/2023 11:32 AM CREATININE, RANDOM URINE - [facility] 34 01/16/2022 09:15 AM CREATININE, RANDOM URINE - [facility] 106 11/30/2015 01:31 PM CREATININE, RANDOM URINE - [facility] 65 06/16/2014 10:06 AM ASSESSMENT/PLAN: Type 2 diabetes mellitus with hemoglobin A1c goal of less than 7.0% ([facility]) (Primary) - HEMOGLOBIN A1C; Future; Expected date: 06/09/2024 Chronic obstructive pulmonary disease, unspecified COPD type (HCC) Alcohol dependence in remission (HCC) Major depressive disorder with single episode, in partial remission (HCC) Primary open-angle glaucoma, right eye, mild stage Essential hypertension with goal blood pressure less than 140/90 Dyslipidemia, goal LDL below 70 Chronic radicular cervical pain Need for prophylactic vaccination and inoculation against influenza A healthy, low fat, low cholesterol diabetic diet and 30-60 minutes of cardiovascular exercise daily were encouraged. Maintaining a healthy weight/BMI was advised. A total of 1500mg of Calcium and 1000 IU of vitamin D were recommended daily, to be obtained from a combination of both diet and supplement sources. 30 min spent with patient, reviewing history, performing physical exam, reviewing labs, studies, specialist OVNs, and reports, educating and coordinating care, discussing treatment Melody Martel DO documented in this encounter Nursing Notes * Anali Hernandez NA - 06/09/2024 2:58 PM EST Doug Mckinney presents for 6 month recheck. Patient would like to discuss his Advance Directives and his general plans for the future. Medications & HM reviewed. documented in this encounter Plan of Treatment Upcoming Encounters Date Type Department Care Team (Late st Contact Info) Description 12/08/2024 3:00 PM EDT Office Visit Family Practice [facility] [address] [facility] [place] [address] Melody Martel DO [address] [facility] [place] [id number] Scheduled Procedures Name Priority Associated Diagnoses Date/Ti [...] (2 - Td or Tdap) 05/05/2024 05/05/2014 Albumin/Creatinine Ratio 12/02/2024 024, 06/01/2023, 01/16/2022, Additional history exists GFR 12/02/2024 12/03/2023, 05/0 02/2023, 01/16/2022, Additional history exists HbA1c 12/07/2024 06/09/2024, 05/0 12/2023, 05/30/2023, Additional history exists Diabetic Eye Exam 04/28/2025 04/28/2024, , 04/23/2024, Additional history exists O2 ASSESSMENT COMPLETED IN PAST YEAR FOR COPD 06/09/2025 06/09/2024 Colonoscopy 03/28/2026 03/28/2021, 03/01, 08/07/2017, Additional history exists Colorectal Cancer Screening [...] hemoglobin A1c goal of less than 7.0% (HCC)- Primary Chronic obstructive pulmonary disease, unspecified COPD type (HCC) Alcohol dependence in remission (HCC) Other and unspecified alcohol dependence, in remission Major depressive disorder with single episode, in partial remission (HCC) Primary open-angle glaucoma, right eye, mild stage Essential hypertension with goal blood pressure less than 140/90 Dyslipidemia, goal LDL below 70 Other and unspecified hyperlipidemia Chronic radicular cervical pain Need for prophylactic vaccination and inoculation against influenza documented in this encounter Care Teams Chore Tender Relationship Specialty Start Date End Date Melody Martel DO [address] [place] [address] PCP - General Family Medicine 01/13/21 documented as of this encounter
--- OUTSIDE RECORDS SUMMARY | 2024-08-27 03:55 | External Medical Summary | Summary of Care ---
Author Name Unknown Organization [facility] Address [address] [place] [address] Phone [phone] Care Team Providers Care Rn Obgyn Name Role Phone Melody Martel DO Primary Care Provider Encounter Details Date Type Department Care Team (Late st Contact Info) Description 04/29/2024 Orders Only Family Practice [facility] [address] [facility] [place] [address] [facility] [address] [facility] [address] Allergies Active Allergy Reactions Criticality Noted Date Comments Pollen Other (Please comment) 11/12/2015 Sneezing, watery eyes, runny nose Ragweed Other (Please comment) 11/12/2015 Sneezing, watery eyes, runny nose documented as of this encounter (statuses as of 04/29/2024) Medications Medication Sig Dispensed Refills Start Date End Date Status CYCLOBENZAPRINE HCL 5 MG PO TABS as needed for back injuries Active triamcinolone acetonide (ARISTOCORT) 0.1 % cream Apply topically to affected area 2 times a day. To affected area. 80 g 5 08/12/2015 Active aspirin 81 MG chewable tablet Take 1 Tab by mouth daily. with food. 100 Tab 5 09/18/2016 Active Naltrexone HCl 50 MG Oral Tablet (Revia) Take 1 Tablet by mouth in the morning. 11/27/2020 Active Diclofenac Sodium 1 % External Gel Apply topically to affected area. Apply to shoulder 01/10/2021 Active Hydrocortisone 2.5 % External Cream Apply topically to affected area 3 times a day . To affected area. 30 g 5 01/10/2022 Active Hydrocortisone 2.5 % External Lotion Apply topically to affected area 3 times a day . To affected area in ears, and on scalp 118 mL 1 01/10/2022 Active Latanoprost 0.005 % Ophthalmic Solution (Xalatan)Indications :Primary open-angle glaucoma, right eye, mild stage INSTILL 1 DROP INTO THE RIGHT EYE AT BEDTIME DIRECTED 07/24/2022 Active hydrOXYzine Pamoate 50 MG Oral Capsule (Vistaril) TAKE 2 CAPSULES BY MOUTH AT BEDTIME 60 Capsule 05/08/2023 Active Atorvastatin Calcium 20 MG Oral Tablet (Lipitor)Indications :Dyslipidemia, goal LDL below 70 Take 1 Tablet by mouth in the morning. 90 Tablet 3 12/06/2023 Active Sildenafil Citrate 100 MG Oral Tablet (Viagra)Indications: Erectile dysfunction, unspecified erectile dysfunction type Take 1 Tablet by mouth daily as needed for Erectile Dysfunction. 1-4 hours before intercourse, no more than 1 dose in 24 hours. 10 Tablet 5 12/06/2023 Active hydroCHLOROthiazide 25 MG Oral Tablet (Hydrodiuril)Indicat ions:Essential hypertension TAKE 1 AND 1/2 TABLETS BY MOUTH EVERY MORNING 45 Tablet 12/10/2023 Active Lisinopril 40 MG Oral Tablet Take 1 Tablet by mouth in the morning. 30 Tablet 12/10/2023 Active metFORMIN HCl ER 500 MG Oral Tablet Extended Release 24 Hour (Glucophage XR)Indications:Type 2 diabetes mellitus with hemoglobin A1c goal of less than 7.0% (HCC) Take 4 Tablets by mouth in the morning. 120 Tablet 12/10/2023 Active Pioglitazone HCl 30 MG Oral Tablet (Actos)Indications:T ype 2 diabetes mellitus with hemoglobin A1c goal of less than 7.0% (HCC) Take 1 Tablet by mouth in the morning. 30 Tablet 12/10/2023 Active documented as of this encounter (statuses as of 04/29/2024) Active Problems Problem Noted Date Diagnosed Date [...] A1c goal of less than 7.0% 05/12/2014 Overview: ICD-10 update of inactive term Benign neoplasm of colon 01/25/2009 Overview: hyperplastic/ repeat colonoscopy in 5 yrs documented as of this encounter (statuses as of 04/29/2024) Resolved Problems Problem Noted Date Diagnosed Date Resolved Date Chronic bronchitis 09/08/2022 3 Alcohol abuse with intoxication, unspecified 1 09/08/2022 HTN, goal below 140/90 11/12/201503/10 documented as of this encounter (statuses as of 04/29/2024) Immunizations Name Administration Dates Next Due COVID-19 mRNA, LNP-s, No Pre serve, 2-Dose Series (Moderna) 06/28/2021 COVID-19, MRNA-LNP, 23-24, P F, 30 MCG/0.3 mL, 12 YRS AND ABOVE, IM ([employer]) 06/11/2023 Covid-19 Ad26, Single Dose (Gradalis/J&J) 021 Hepatitis B, 20+ yrs 01/08/1993 PPD 11/30/2015,01/18/2015,01/11/2015 Pneumococcal Conjugate Vacci ne, 20-valent ([id number]) 09/08/2022 Pneumococcal Polysaccharide PPV23 (Pneumovax) 06/17/2014 Seasonal Influenza, PF, 6 M & above, IM , (FluLaval or Fluzone) 06/05/2023,06/13/2022,06/15/2021 Seasonal Influenza, Quadriva lent, No Preserve, IM 08/12/2015 Seasonal Influenza, Trivalen t, (IIV3), with Preserv, (Fluzone) 05/05/2014 TDAP (age 10 and older)(Boostrix) 05/05/2014 Zoster [...] money to get more. Never true 12/13/2020 Utilities Answer Date Recorded Do you have trouble paying y our heating, water, or electric bill? (Adult - for ages 18 years and over) Not on file 01/15/2024 Is your family able to pay t he heat, water, or electric bill? (Household - for ages 0-17 years) Not on file 01/15/2024 Does your family have access to good internet? (Household - for ages 0-17 years) Not on file 01/15/2024 Social Connections Answer Date Recorded How often do you feel lonely or isolated from those around you? (Adult - for ages 18 years and over) Not on file 01/15/2024 Sex and Gender Information Value Date Recorded Sex Assigned at Not on file Gender Identity Not on file Sexual Orientation Not on file Job Start Date Occupation Industry Not on file Not on file Not on file documented as of this encounter Plan of Treatment Upcoming Encounters Date Type Department Care Team (Late st Contact Info) Description 06/09/2024 3:00 PM EST Office Visit Family Practice [facility] [address] [place] [id number] Melody Martel DO [address] [place] [address] Scheduled Procedures Name Priority Associated Diagnoses Date/Ti [...] 06/04/2024 12/03/2023, 1107/2022, 12/04/2022, Additional history exists O2 ASSESSMENT COMPLETED IN PAST YEAR FOR COPD 06/05/2024 06/05/2023 Albumin/Creatinine Ratio 12/02/20242 024, 06/01/2023, 01/16/2022, Additional history exists GFR 12/02/2024 12/03/2023, 05/0 02/2023, 01/16/2022, Additional history exists Diabetic Eye Exam 04/29/2025 04/28/2024, , 04/24/2023, Additional history exists Colonoscopy 03/28/2026 03/28/2021, 03/01, 08/07/2017, Additional history [...] Not on filedocumented as of this encounter Procedures Procedure Name Priority Date/Time Associated Diagnosis Comments DIABETIC EYE EXAM Routine 04/28/2024 documented in this encounter Results * DIABETIC EYE EXAM (04/28/2024) 04/28/2024 History Per Patient OTHER OUTSIDE LAB (SEE SCANNED REPORT) documented in this encounter Care Teams Rn Obgyn Relationship Specialty Start Date End Date Melody Martel DO [address] [place] [address] PCP - General Family Medicine 01/13/21 documented as of this encounter
--- OUTSIDE RECORDS SUMMARY | 2024-08-27 03:55 | External Medical Summary | Summary of Care ---
Author Name Unknown Organization [facility] Address [address] [place] [address] Phone [phone] Care Team Providers Care In File Operator Name Role Phone Melody Martel DO Primary Care Provider Encounter Details Date Type Department Care Team (Late st Contact Info) Description 03/17/2024 Orders Only [facility] Department [address] [place] [address] Lisset Knox [facility] [employer] Other*[id number] Allergies Active Allergy Reactions Criticality Noted Date Comments Pollen Other (Please comment) 11/12/2015 Sneezing, watery eyes, runny nose Ragweed Other (Please comment) 11/12/2015 Sneezing, watery eyes, runny nose documented as of this encounter (statuses as of 03/17/2024) Medications Medication Sig Dispensed Refills Start Date [...] as of this encounter (statuses as of 03/17/2024) Active Problems Problem Noted Date Diagnosed Date [...] as of this encounter (statuses as of 03/17/2024) Resolved Problems Problem Noted Date Diagnosed Date Resolved Date Chronic bronchitis 09/08/2022 3 Alcohol abuse with intoxication, unspecified 1 09/08/2022 HTN, goal below 140/90 11/12/201503/10 documented as of this encounter (statuses as of 03/17/2024) Immunizations Name Administration Dates Next Due COVID-19 mRNA, LNP-s, No Pre serve, 2-Dose Series (Moderna) 06/28/2021 COVID-19, MRNA-LNP, 23-24, P F, 30 MCG/0.3 mL, 12 YRS AND ABOVE, IM ([employer]) 06/11/2023 Covid-19 Ad26, Single Dose ([facility]J&J) 021 Hepatitis B, 20+ yrs 01/08/1993 PPD 11/30/2015,01/18/2015,01/11/2015 Pneumococcal Conjugate Vacci ne, 20-valent ([id number]) 09/08/2022 Pneumococcal Polysaccharide PPV23 (Pneumovax) 06/17/2014 Seasonal Influenza, PF, 6 M & above, IM , (FluLaval or Fluzone) 06/05/2023,06/13/2022,06/15/2021 Seasonal Influenza, Quadriva lent, No Preserve, IM 08/12/2015 Seasonal Influenza, Split, I IV3, With Preserve, Inj 05/05/2014 TDAP (age 10 and older)(Boostrix) 05/05/2014 [...] [facility] [address] [place] [address] Melody Martel DO [address] [place] [address] Scheduled Orders Name Type Priority Associated Diagnoses Orde r Schedule MYCODE SUBSEQUENT ADULT Lab Routine My[employer] Research Other*[id number] Every 6 Months for 2 Occurrences starting 03/17/2024 until 04/06/2025 Scheduled Procedures Name Priority Associated Diagnoses Date/Ti [...] Additional history exists COVID-19 Vaccine ( season) 2023 06/11/2023, 06/28/2021, 11/28/2020 Influenza Vaccine (FLU shot) (#1) 2024 06/05/2023, 06/13/2022, 06/15/2021, Additional history exists DTaP,Tdap,and Td Vaccines (2 - Td or Tdap) 05/05/2024 05/05/2014 HbA1c 06/04/2024 12/03/2023, 1107/2022, 12/04/2022, Additional history exists O2 ASSESSMENT COMPLETED IN PAST YEAR FOR COPD 06/05/2024 06/05/2023 Diabetic Eye Exam 09/10/2024 09/10/2023, , 03/13/2023, Additional history exists Albumin/Creatinine Ratio 12/02/2024 024, 06/01/2023, 01/16/2022, Additional history exists GFR 12/02/2024 12/03/2023, 05/0 02/2023, 01/16/2022, Additional history exists Colonoscopy 03/28/2026 03/28/2021, 08, 08/07/2017, Additional history exists Colorectal Cancer Screening [...] as of this encounter Visit Diagnoses Diagnosis [employer] Research Other*[id number] documented in this encounter Care Teams In File Operator Relationship Specialty Start Date End Date Melody Martel DO [address] [place] [address] PCP - General Family Medicine 01/13/21 documented as of this encounter
--- OUTSIDE RECORDS SUMMARY | 2024-08-27 03:55 | External Medical Summary | Summary of Care ---
Author Name Unknown Organization [facility] Address [address] [place] [address] Phone [phone] Care Team Providers Care Gum Cook Name Role Phone Melody Martel Primary Care Provider Encounter Details Date Type Department Care Team (Late st Contact Info) Description 08/19/2024 Population Health External Data Unspecified Department Allergies Active Allergy Reactions Criticality Noted Date Comments Pollen Other (Please comment) 11/12/2015 Sneezing, watery eyes, runny nose Ragweed Other (Please comment) 11/12/2015 Sneezing, watery eyes, runny nose documented as of this encounter (statuses as of 08/19/2024) Medications CYCLOBENZAPRINE HCL 5 MG PO TABS [...] as of this encounter (statuses as of 08/19/2024) Active Problems Problem Noted Date Diagnosed Date [...] as of this encounter (statuses as of 08/19/2024) Resolved Problems Problem Noted Date Diagnosed Date Resolved Date Chronic bronchitis 09/08/2022 3 Alcohol abuse with intoxication, unspecified 1 09/08/2022 HTN, goal below 140/90 11/12/201503/10 documented as of this encounter (statuses as of 08/19/2024) Immunizations Name Administration Dates Next Due COVID-19 mRNA, LNP-s, No Pre serve, 2-Dose Series (Moderna) 06/28/2021 COVID-19, MRNA-LNP, PF, 30 M CG/0.3 mL, 12 YRS AND ABOVE, [facility]) 06/11/2023 Covid-19 Ad26, Single Dose ([employer]/J&J) 021 Hepatitis B, 20+ yrs 01/08/1993 PPD 11/30/2015,01/18/2015,01/11/2015 Pneumococcal Conjugate Vacci ne, 20-valent ([id number]) 09/08/2022 Pneumococcal Polysaccharide PPV23 (Pneumovax) 06/17/2014 Seasonal [...] 3:00 PM EDT Office Visit Family Practice [facility] [place] [address] [place] [address] Melody Martel DO [address] [place] [address] Scheduled Procedures Name Priority Associated Diagnoses Date/Ti [...] Zoster Vaccines Completed 07/12/2021, 01/10/2021 Pneumococcal Vaccine: 50+ Years Completed 09/08/2022, 06/17/2014 Alpha-1 Antitrypsin Completed 12/04/2022 Lung Cancer Screening Completed 06/11/2023 AAA Screening Completed 12/11/2023 HPV (Gardasil) Vaccine Aged Out No lo nger eligible based on patient's age to complete this topic MENINGOCOCCAL (MENACTRA/MENVEO) Aged Out No longer eligible based on patient's age to complete this topic documented as of this encounter Medical Devices Not on filedocumented as of this encounter Care Teams Gum Cook Relationship Specialty Start Date End Date Melody Martel DO [address] [place] [address] PCP - General Family Medicine 01/13/21 documented as of this encounter
--- NOTE | 2024-08-27 04:42 | XRay Report ---
EXAM: XR shoulder LT min 2V routine CLINICAL HISTORY: TRAUMA BEST POSSIBLE, ETOH JMF TECHNIQUE: X-ray images of the left shoulder were obtained in anteroposterior (AP) and Y-view projections. COMPARISON: No prior studies are available for comparison. FINDINGS: suboptimal study Bone Structure: Bone structure is normal and aligned. No evidence of fracture. Anterior dislocation can't be excluded in the lateral view (poor film penetration), clinical evaluation is advised. No osseous lesions or abnormalities were identified. Cortical discontinuity was seen at the lateral aspect of the left 3rd rib which may suggest non displaced rib fracture. Joint Spaces: Glenohumeral and acromioclavicular joint spaces are normal. No evidence of joint effusion or subluxation. Soft Tissues: Soft tissues appear normal and unremarkable. No soft tissue swelling, calcifications, or foreign bodies were noted. Additional Findings: No signs of osteoarthritis, bone spurs, lytic or sclerotic lesions. IMPRESSION: 1. No evidence of acute fracture or significant soft tissue abnormalities of the left shoulder. Anterior dislocation can't be excluded in the lateral view (poor film penetration), clinical evaluation is advised. The humeral head is properly positioned in the AP view. 2. Suspected left 3rd rib fracture for better assessment with rib views. Disclaimer: A subtle bone abnormality or fracture may not be readily apparent on X-rays, thus clinical correlation and further imaging including follow-up CT, MRI, or follow-up X-rays are advised as needed. Electronically signed by Ny Mars 08-27-2024 04:41 AM
[2024-08-27] MEDS: OPTIRAY 320 100ml IV ONE (05:07)
--- NOTE | 2024-08-27 06:04 | CT Scan Report ---
EXAM: CT chest diagnostic w con CLINICAL HISTORY: trauma, abn cxr per rad, TECHNIQUE: Contiguous 3.[address] images of the chest were acquired with administration of intravenous contrast. Coronal and sagittal reconstructions were obtained. 94 ml optiray 320 was administered for post contrast images. One of the following dose reduction techniques were utilized for this exam: Automated exposure control, adjustment of the mA and/or kV according to patient size, and use of iterative reconstruction. CTDI 19.95 mGy, DLP 723.67 mGy-cm COMPARISON: Xray dated 08/26/2024 FINDINGS: Lungs: Minimal apical reticulation likely old granulomatous Upper and lower lung lobes centrilobular emphysematous changes Lower lobes atelectatic plates in the peribronchial thickening. No definite pulmonary consolidation No pleural effusion or pleural thickening. Mediastinum: No mediastinal mass or abnormal lymphadenopathy. Normal appearance of the thymus. Hilar Structures: Normal size and configuration, no enlargement. Heart and Great Vessels: Normal heart size and configuration. No pericardial effusion. Normal caliber and course of the thoracic aorta and other great vessels. No significant atherosclerosis or aneurysm. Normal enhancement of the great vessels post-contrast. Pulmonary Arteries: No evidence of pulmonary embolism. Normal size and course of the pulmonary arteries. Esophagus: Normal course and caliber. No masses or dilatation. Bones: Comminuted fracture of lateral segment of the left third rib with mild displacement of the fractured segments and mild left pleural reaction. No related pulmonary contusion Other nondisplaced fractures of the anterior lateral segments of the left fifth and sixth ribs Advanced thoracic spondylosis with mild reduced height/wedging of the mid-thoracic vertebrae without complete vertebral collapse Upper Abdomen: Visualized portions of the liver, spleen, pancreas, adrenal glands, and kidneys are normal. No abnormalities were noted in the visualized upper abdominal organs. Thyroid: Normal size and morphology. No nodules or masses. IMPRESSION: 1. Comminuted fracture of lateral segment of the left third rib with mild displacement of the fractured segments and mild left pleural reaction. No related pulmonary contusion. 2. Other nondisplaced fractures of the anterior lateral segments of the left fifth and sixth ribs. 3. Upper and lower lung lobes centrilobular emphysematous changes. 4. Bilateral lower lobe atelectatic changes. 5. No signs of acute inflammatory changes. 6. Advanced thoracic spondylosis with mild reduced height/wedging of the mid-thoracic vertebrae without complete vertebral collapse. 7. Clinical correlation is advised. Electronically signed by Ny Mars 08-27-2024 06:03 AM
--- NOTE | 2024-08-27 07:32 | CT Scan Report ---
EXAM: CT abd pelvis wo con CLINICAL HISTORY: Fall, diffuse pain. TECHNIQUE: Non-contrast CT of the abdomen and pelvis was performed, with the following protocol: axial images, and reconstructed coronal and sagittal images. One of the following dose reduction techniques was utilized for this exam: Automated exposure control, adjustment of the mA and/or kV according to patient size, and use of iterative reconstruction. COMPARISON: Comparison is made with prior study dated 12/05/2017 FINDINGS: Abdomen: Liver: Enlarged in size (LS-16.9cm). Normal shape, and density. No focal lesions, cysts, or masses were identified. Gallbladder and Biliary System: The gallbladder is normal in size and shape. No wall thickening, pericholecystic fluid, or gallstones were identified. Pancreas: Pancreatic head, body, and tail are visualized and appear normal in size and density. No pancreatic masses or calcifications were noted. Spleen: Normal in size, shape, and density. No splenic lesions or masses were identified. Appendix: The appendix is normal in size without danny appendiceal fat stranding, and without an appendicolith. No evidence of appendiceal abscess or perforation. Kidneys and Adrenal Glands: Both kidneys are normal in size, shape, and position. Cortical thickness is within normal limits. No renal calculi or hydronephrosis. Bilateral renal cysts, largest at left side measuring 25x23.3mm Excreted contrast seen in collecting system (sequel of contrast-enhanced CT chest study done earlier) Right adrenal lesion measuring 16.4x13.3mm Left adrenal gland is unremarkable. Abdominal Aorta and Vessels: The abdominal aorta and major branches are patent without evidence of an aneurysm or significant atherosclerosis. Pelvis: Urinary Bladder: Normal in contour and wall thickness. No intraluminal lesions. Prostate: calcific foci seen Peritoneal and Retroperitoneal Structures: No free fluid or abnormal fluid collections were identified within the abdomen or pelvis. No lymphadenopathy was noted. Bowel: The visualized bowel loops are normal in caliber and appearance. No evidence of bowel obstruction or wall thickening. Bones and Soft Tissues: Lumbar spondylosis seen as sclerosed end plates, schmorl nodes and reduced disc height with facet joint arthropathy No fractures or abnormal masses were identified. cuts taken through base of the lung shows bilateral parenchymal bands IMPRESSION: 1. No intraperitoneal-free or localized collection 2. No intraperitoneal or retroperitoneal hematomas seen 3. No fractures or abnormal masses were identified. 4. Mild hepatomegaly 5. Bilateral renal cysts, largest at left side measuring 25x23.3mm 6. Right adrenal lesion measuring 16.4x13.3mm 7. No interval changes Electronically signed by Ny Mars 08-27-2024 07:24 AM
[2024-08-27] MEDS: LIDOCAINE 5% 1 PATCH TD STA (08:14)
[2024-08-27] MEDS: ALBUT/IPRATROP 3MG/0.5MG NEB 3 ML VIAL NEB STA (08:15)
[2024-08-27] MEDS: POTASSIUM CHLORIDE CRTAB 20 MEQ TABCR PO STA (08:37)
--- NOTE | 2024-08-27 08:49 | History & Physical Report ---
Date of Service August 27, 2024 Assessment & Plan (1) CHI (closed head injury): (2) Alcohol intoxication: (3) Tobacco abuse: (4) Alcohol abuse: (5) Depression with anxiety: (6) HLD (hyperlipidemia): (7) Diabetes: (8) Hypertension: Plan The patient is a 63-year-old male with a past medical history of HTN, HLD, alcohol abuse, tobacco use, DM2 who presents to the ED on 08/27/2024 s/p mechanical fall found to have left-sided rib fractures and alcohol intoxication Assessment and plan: Mechanical fall Left-sided rib fractures, 3rd, 5th, 6th. 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, patient reported he "did not want to live any more " Denies any suicidal thoughts or plans at this time Similar episode noted in 2019, 1:1 and psych consult ordered Alcohol abuse and intoxication: Alcohol level 336 on admission, patient reports to drinking at least 6 drinks a week Alcohol cessation recommended, alcohol withdrawal protocol with gabapentin and Ativan Monitor closely, telemetry monitoring Hx DM2: Recheck A1c, hold metformin/Actos while inpatient, add SSI Hx HTN/HLD: Continue HCTZ, lisinopril, statin A total of 60 minutes was spent on chart review/facilitating plan of care/reviewing diagnostic data/discussion with consultants Full code DVT prophylaxis: SCDs History of Present Illness Chief Complaint: Fall, alcohol intoxication Primary Care Provider: Melody Martel, DO This is a 59-year-old male with significant past medical history of T2DM, HTN, HLD, depression with anxiety, tobacco abuse, alcohol abuse who presents to ED on 08/27/2024 after EMS was called by bystanders after patient fell outside of a local establishment. Patient was intoxicated on arrival to the ER. He is a poor historian. Reports drinking every few months, although reported drinking multiple times a week to the ER physician. He does not remember the fall. Denies any recent respiratory illness. Denies any nausea/vomiting/abdominal pain. Does report some left-sided rib pain where fractures were noted on imaging. Denies any shortness of breath or chest pain. Denies any fever/chills. Pt reports smoking a pack of cigarettes every 4 days. Denies any other drug use aside from marijuana. Patient was admitted in 2019 with alcohol intoxication/withdrawal and similar complaints. On arrival to the ED, labs remarkable for potassium 3.3, Urine tox screen positive for marijuana, alcohol level [address] showed minimal left maxillary sinusitis Cervical spine CT negative for acute fractures Chest x-ray showed chronic bronchitis/pulmonary edema Head CT was negative for any acute changes Pelvics x-ray was negative for any acute fractures Left shoulder x-ray negative for acute fracture, Chest CT showed comminuted fracture of the lateral segment of the left third rib with mild displacement of the fracture segments and mild pleural reaction, no pulmonary contusion Nondisplaced fractures noted of the anterior lateral segments of the left fifth and sixth ribs Abdomen/pelvis CT negative for anything acute EKG showed accelerated junctional rhythm The patient will be admitted for further management of rib fractures and alcohol intoxication Allergies Allergy/AdvReac Type Severity Reaction Status Date / Time No Known Allergies Allergy Verified 04/20/20 06:48 Home Medications Medication Instructions Recorded Confirmed Type hydrochlorothiazide 25 mg tablet 25 mg PO DAILY #30 tabs 04/23/20 08/27/24 Rx lisinopril 40 mg tablet 40 mg PO DAILY #30 tabs 04/23/20 08/27/24 Rx metformin 1,000 mg tablet 1,000 mg PO BID #60 tabs 04/23/20 08/27/24 Rx atorvastatin 40 mg tablet (Lipitor) 40 mg PO DAILY 08/27/24 08/27/24 History pioglitazone 30 mg tablet (Actos) 30 mg PO DAILY 08/27/24 08/27/24 History Past Med/Surg History Problem List (Updated 08/27/24 @ 03:34 by Kaylyn Dave DO) Abrasion of left middle finger (Acute) Acute pain of right shoulder (Acute) Marijuana use (Acute) CHI (closed head injury) (Acute) Alcohol intoxication (Acute) DVT prophylaxis Depression with suicidal ideation Alcohol withdrawal Tobacco abuse Alcohol abuse Depression with anxiety HLD (hyperlipidemia) Diabetes (Chronic) Hypertension (Chronic) Leg pain, left (Acute) Surgical History History of colonoscopy History of right knee surgery x 2 secondary to patellar dislocation Family History Mother , 41 Pulmonary embolism Father Colorectal cancer Alzheimer disease Social History Smoking Status: Current every day smoker Tobacco Type: Cigarettes packs per day: 1; Cigarettes Per Day: 5; Second Hand Exposure: No; Do You Dip or Chew Tobacco: No; Tobacco Cessation Education Requested by Patient: No Hx Alcohol Use: Yes Alcohol type: beer and hard liquor Hx Substance Use: Yes Non-Prescribed Medications: Marijuana Last Used Substance: Days (ago) Last Used Substance Other:: Daily at night. Preferred Language: Wolof Communication Ability: Effective Licensed Vocational Nurse Required: No Beliefs That Will Affect Care: Yarsani Yarsani Beliefs: Faith but not practicing or baptized and reports that he has no active practices that we need to be aware of. marital status: Single Current Living Situation: Alone How many Children do You have: 0 Other Information That Helps Us Care for You: No Feels Safe at Home: Yes Safety Concerns: Feels Safe At This Time Assistive Devices: Glasses Assistive Devices Comment: Uses glasses to drive. Review of Systems Review of Systems: All systems reviewed & are unremarkable except as noted in HPI & below Physical Exam Constitutional: WD/WN, vitals as above Eyes: PERRL, conjunctivae normal, anicteric sclerae ENMT: external ear and nose normal, oropharynx normal Neck: trachea midline, no thyromegaly Respiratory: normal respiratory effort, lungs clear to auscultation (wheezing in b/l bases ) Cardiovascular: RRR, no murmur, no edema Chest (Breasts): Chest: normal inspection of chest (l lateral rib pain ) Gastrointestinal (Abdomen): normal bowel sounds, soft, nontender, no hepatosplenomegaly Musculoskeletal: no cyanosis or clubbing, extremities motor strength 5/5 Skin: no rashes, warm and dry Neurologic: PERRL, EOMI, accommodation nl, no face palsy, no dysarthria Psychiatric: A+Ox3, euthymic affect Lymphatic: no cervical or axillary lymphadenopathy Results & Data Results & Data Vital Signs (Past 12 Hours) Vital Signs Temp Pulse Pulse Pulse Resp Resp BP 08/27/24 08:15 74 08/27/24 07:35 96 H 26 H 08/27/24 07:06 78 17 103/60 08/27/24 06:30 82 20 08/27/24 06:00 85 20 107/61 08/27/24 05:12 90 19 117/68 08/27/24 05:00 80 20 08/27/24 04:00 80 20 94/48 L 08/27/24 03:45 78 08/27/24 03:00 82 17 107/59 L 08/27/24 02:03 71 15 107/59 L 08/27/24 01:30 71 19 100/55 L 08/27/24 01:03 70 19 112/68 08/26/24 23:51 73 08/26/24 23:49 112/68 08/26/24 23:11 36.5 C 72 18 112/68 BP Pulse Ox Pulse Ox O2 Del Method 08/27/24 08:15 08/27/24 07:35 94 Room Air 08/27/24 07:06 95 08/27/24 06:30 103/60 95 Room Air 08/27/24 06:00 95 08/27/24 05:12 95 08/27/24 05:00 117/68 91 Room Air 08/27/24 04:00 95 08/27/24 03:45 08/27/24 03:00 08/27/24 02:03 95 08/27/24 01:30 93 08/27/24 01:03 92 08/26/24 23:51 08/26/24 23:49 08/26/24 23:11 96 Room Air Diagnostic Findings Laboratory Results WBC 8.50 K/ul (4.8-10.8) 08/26/24 23:32 RBC 4.98 M/uL (4.70-6.10) 08/26/24 23:32 Hgb 14.9 g/dl (14.0-18.0) 08/26/24 23:32 Hct 42.9 % (42.0-52.0) 08/26/24 23:32 MCV 86.1 fL (80.0-100.0) 08/26/24 23:32 MCH 29.9 pg (25.0-34.0) 08/26/24 23:32 MCHC 34.7 g/dL (32.0-36.0) 08/26/24 23:32 RDW Std Deviation 45.7 fL (36.4-46.3) 08/26/24 23:32 RDW Coeff of Lindy 14.6 % (11.5-14.5) H 08/26/24 23:32 Plt Count 180 K/uL (130-400) 08/26/24 23:32 MPV 10.0 fL (9.4-12.4) 08/26/24 23:32 Immature Gran % (Auto) 1.1 % 08/26/24 23:32 Neut % (Auto) 48.5 % 08/26/24 23:32 Lymph % (Auto) 40.2 % 08/26/24 23:32 [place] % (Auto) 7.4 % 08/26/24 23:32 Eos % (Auto) 1.6 % 08/26/24 23:32 Baso % (Auto) 1.2 % 08/26/24 23:32 Neut # (Auto) 4.12 K/uL (1.40-6.50) 08/26/24 23:32 Lymph # (Auto) 3.42 K/uL (1.20-3.40) H 08/26/24 23:32 [place] # (Auto) 0.63 K/uL (0.11-0.59) H 08/26/24 23:32 Eos # (Auto) 0.14 K/uL (0.00-0.50) 08/26/24 23:32 Baso # (Auto) 0.10 K/uL (0.00-0.20) 08/26/24 23:32 Immature Gran # (Auto) 0.09 K/uL (0.01-0.20) 08/26/24 23:32 PT 10.7 Seconds (9.0-12.0) 08/26/24 23:32 INR 1.0 (0.9-1.1) 08/26/24 23:32 Sodium 139 mmol/L (136-145) 08/26/24 23:32 Potassium 3.3 mmol/L (3.5-5.1) L 08/26/24 23:32 Chloride 105 mmol/L (98-107) 08/26/24 23:32 Carbon Dioxide 24 mmol/L (21-32) 08/26/24 23:32 Anion Gap 10 (3-11) 08/26/24 23:32 BUN 14 mg/dl (6-23) 08/26/24 23:32 Creatinine 0.98 mg/dl (0.6-1.4) 08/26/24 23:32 Est Cr Clr Drug Dosing Not Reportable 08/26/24 00:00 eGFR 85.57 08/26/24 23:32 BUN/Creatinine Ratio 14.3 (10-20) 08/26/24 23:32 Glucose 117 mg/dl (70-99(Fasting)) H 08/26/24 23:32 Calcium 9.5 mg/dl (8.6-10.3) 08/26/24 23:32 Magnesium 1.7 mg/dl (1.7-2.4) 08/26/24 23:32 Total Bilirubin 1.0 mg/dl (0.2-1.0) 08/26/24 23:32 AST 16 U/L (13-39) 08/26/24 23:32 ALT 13 U/L (7-52) 08/26/24 23:32 Alkaline Phosphatase 70 U/L (34-104) 08/26/24 23:32 Troponin I High Sens 3.7 pg/ml (0-20) 08/26/24 23:32 Total Protein 7.0 gm/dl (6.0-8.3) 08/26/24 23:32 Albumin 4.4 gm/dl (3.4-5.0) 08/26/24 23:32 Globulin 2.6 gm/dl (2.5-4.0) 08/26/24 23:32 Albumin/Globulin Ratio 1.7 (0.9-2) 08/26/24 23:32 Lipase 39 U/L (11-82) 08/26/24 23:32 TSH 3.191 uIu/ml (0.300-4.500) 08/26/24 23:32 Urine Color Yellow 08/27/24 00:46 Urine Appearance Clear (Clear) 08/27/24 00:46 Urine pH 5.5 (4.5-7.5) 08/27/24 00:46 Ur Specific [place] 1.011 (1.000-1.030) 08/27/24 00:46 Urine Protein Negative (Negative) 08/27/24 00:46 Urine Glucose (UA) Negative (Negative) 08/27/24 00:46 Urine Ketones Negative (Negative) 08/27/24 00:46 Urine Blood Negative (Negative) 08/27/24 00:46 Urine Nitrite Negative (Negative) 08/27/24 00:46 Urine Bilirubin Negative (Negative) 08/27/24 00:46 Urine Urobilinogen Negative (Negative) 08/27/24 00:46 Ur Leukocyte Esterase Negative (Negative) 08/27/24 00:46 Urine Opiates Screen Neg (Neg) 08/27/24 00:46 Ur Methadone, Qual Neg (Neg) 08/27/24 00:46 Urine Fentanyl Screen Neg (Neg) 08/27/24 00:46 Urine Barbiturates Neg (Neg) 08/27/24 00:46 Ur Phencyclidine (PCP) Neg (Neg) 08/27/24 00:46 U Amphetamin/Meth Scrn Neg (Neg) 08/27/24 00:46 MDMA (Ecstasy) Screen Neg (Neg) 08/27/24 00:46 U Benzodiazepines Scrn Neg (Neg) 08/27/24 00:46 Ur Cocaine Metabolite Neg (Neg) 08/27/24 00:46 U Marijuana (THC) Screen Pos (Neg) H 08/27/24 00:46 Ethyl Alcohol mg/dL 336.8 mg/dl (<10.0) H 08/26/24 23:[address] 08/26/24 23:52 EXAM: CT facial bones wo con CLINICAL HISTORY: +ETOH. Patient was found lying supine in the grass by EMS. Patient told this RN that he wants to but states he doesn't know why and he has no plan at all to do so. Patient is a chronic alcoholic. Patient states "I got really drunk and smoked a lot of weed" as his reason for being brought to the hospital tonight. TECHNIQUE: Computed tomography of the orbits/face was performed without intravenous contrast. Contiguous axial images were obtained. Reformatted coronal and sagittal images were also reviewed. CT scan was performed according to ALARA (as low as reasonable achievable). COMPARISON: none. FINDINGS: Minimal left maxillary sinusitis. No acute facial fractures. Rest of paranasal sinuses and mastoid air cells are clear. The globes, optic nerves, extraocular muscles and retro-orbital fat are grossly unremarkable. Reformatted imaging demonstrates intact roof and floor of the orbits. Included portions of the mandible are intact. The included intracranial substances and airway are unremarkable. IMPRESSION: Minimal left maxillary sinusitis. Electronically signed by Devon Reyes 08-27-2024 01:[address] 08/26/24 23:53 EXAM: CT cervical spine wo con CLINICAL HISTORY: ETOH. Patient was found lying supine in the grass by EMS. Patient told this RN that he wants to but states he doesn''t know why and he has no plan at all to do so. Patient is a chronic alcoholic. Patient states "I got really drunk and smoked a lot of weed" as his reason for being brought to the hospital tonight. TECHNIQUE: Computed tomography of the cervical spine performed without intravenous contrast. Contiguous axial images were obtained from the skull base to T2, with sagittal and coronal reformatted images reconstructed from the axial data. CT scan was performed according to ALARA (as low as reasonable achievable). COMPARISON: None. FINDINGS: The normal cervical lordotic curvature is maintained. Degenerative changes involving cervical spine in the form of multilevel marginal osteophytes, disc space reduction and facetal arthrosis. Cervical vertebral bodies are normal in height and alignment, with no evidence of fracture or subluxation. Lateral masses of C1 are symmetrical, and the dens is intact. Prevertebral soft tissues are not widened. The remaining suprahyoid and infrahyoid soft tissues in the neck are unremarkable. Posterior uncovertebral arthrosis is noted at C3-C4 to C5-C6 levels, which indenting ventral thecal sac and causes bilateral neuroforaminal narrowing. Thyroid gland appears unremarkable. IMPRESSION: 1.No acute fracture or subluxation in the cervical spine. 2.Cervical spondylosis. Electronically signed by Devon Reyes 08-27-2024 01:31 AM Chest X-Ray 08/26/24 23:53 EXAM: XR chest 1V portable CLINICAL HISTORY: TRAUMA BEST POSSIBLE, ETOH TECHNIQUE: An X-ray image of the chest is obtained in AP projection. COMPARISON: No prior studies are available for comparison. FINDINGS: Pulmonary Parenchyma: Prominent coarse bronchovascular markings. No evidence of consolidation, collapse, or focal opacities. No pulmonary nodules are identified. No evidence of pleural effusion or pleural thickening. Heart and Mediastinum: Heart size and shape are normal. No mediastinal widening or masses. No hilar or mediastinal lymphadenopathy. Bony Thorax: The bony thorax appears intact without fractures or deformities. Chronic fractures at the left mid ribs. Soft Tissues: Soft tissues overlying the chest wall are unremarkable. IMPRESSION: 1. Prominent and coarse bronchovascular markings may suggest chronic bronchitis/congestion/Pulmonary edema. 2. No consolidation, pneumothorax or pleural effusion. 3. Chronic fracture at a few left mid ribs. No acute fracture is visualized in these views. Electronically signed by Ny Mars 08-27-2024 02:[address] 08/26/24 23:53 EXAM: CT head/brain wo con CLINICAL HISTORY: +ETOH. Patient was found lying supine in the grass by EMS. Patient told this RN that he wants to but states he doesn't know why and he has no plan at all to do so. Patient is a chronic alcoholic. Patient states "I got really drunk and smoked a lot of weed" as his reason for being brought to the hospital tonight. TECHNIQUE: Multiple axial images are obtained from the skull base to the vertex without contrast. CT scan was performed according to ALARA (as low as reasonable achievable). COMPARISON: None. FINDINGS: There is cerebral atrophy. No evidence of space occupying lesion, hemorrhage, edema, mass effect, midline shift, extra axial collection, or hydrocephalus is noted. Basal cisterns are symmetric and normal in size and configuration. There are scattered periventricular hypodensities as can be seen with chronic microvascular ischemic changes. The james-white matter differentiation is preserved. Visualized paranasal sinuses and mastoid air cells are well aerated. Orbital contents are within normal limits. Bony structures are intact. IMPRESSION: 1. No evidence of acute intracranial abnormality is demonstrated. 2. Chronic microvascular ischemic changes. 3. Cerebral atrophy. Electronically signed by Devon Reyes 08-27-2024 01:27 AM Pelvis X-Ray 08/26/24 23:53 EXAM: XR pelvis 1-2V routine CLINICAL HISTORY: TRAUMA BEST POSSIBLE, ETOH TECHNIQUE: X-ray images of the pelvis were obtained in anteroposterior (AP) projection. COMPARISON: Reviewed CT abdomen and pelvis dated: 12/05/2017. FINDINGS: Bone Structure: Pelvic bones, including the iliac wings, ischium, pubis, and sacrum, are normal and intact. No evidence of fractures, dislocations, or significant osseous lesions. Hip Joints: Reduced bilateral hip joint spaces with minimal marginal osteophytes. Acetabulum: Acetabular structures appear normal and intact. No signs of acetabular fracture or dysplasia. Symphysis Pubis: The symphysis pubis is normal and intact. No evidence of separation or widening. Sacroiliac Joints: Sacroiliac joints appear normal and unremarkable. No evidence of sacroiliitis or significant degenerative changes. Soft Tissues: Visualized soft tissues are normal and unremarkable. No soft tissue swelling, or masses. Vascular calcification seen. Additional Findings: No other significant abnormalities noted. IMPRESSION: 1. Bilateral hip joint osteoarthritic changes. 2. No obvious/definite acute bony abnormality. 3. No significant interval changes. Disclaimer: A subtle bone abnormality or fracture may not be readily apparent on X-rays, thus clinical correlation and further imaging including follow-up CT, MRI, or follow-up X-rays are advised as needed. Electronically signed by Ny Mars 08-27-2024 02:29 AM Shoulder X-Ray 08/27/24 03:06 EXAM: XR shoulder LT min 2V routine CLINICAL HISTORY: TRAUMA BEST POSSIBLE, ETOH JMF TECHNIQUE: X-ray images of the left shoulder were obtained in anteroposterior (AP) and Y-view projections. COMPARISON: No prior studies are available for comparison. FINDINGS: suboptimal study Bone Structure: Bone structure is normal and aligned. No evidence of fracture. Anterior dislocation can't be excluded in the lateral view (poor film penetration), clinical evaluation is advised. No osseous lesions or abnormalities were identified. Cortical discontinuity was seen at the lateral aspect of the left 3rd rib which may suggest non displaced rib fracture. Joint Spaces: Glenohumeral and acromioclavicular joint spaces are normal. No evidence of joint effusion or subluxation. Soft Tissues: Soft tissues appear normal and unremarkable. No soft tissue swelling, calcifications, or foreign bodies were noted. Additional Findings: No signs of osteoarthritis, bone spurs, lytic or sclerotic lesions. IMPRESSION: 1. No evidence of acute fracture or significant soft tissue abnormalities of the left shoulder. Anterior dislocation can't be excluded in the lateral view (poor film penetration), clinical evaluation is advised. The humeral head is properly positioned in the AP view. 2. Suspected left 3rd rib fracture for better assessment with rib views. Disclaimer: A subtle bone abnormality or fracture may not be readily apparent on X-rays, thus clinical correlation and further imaging including follow-up CT, MRI, or follow-up X-rays are advised as needed. Electronically signed by Ny Mars 08-27-2024 04:[address] 08/27/24 04:46 EXAM: CT chest diagnostic w con CLINICAL HISTORY: trauma, abn cxr per rad, TECHNIQUE: Contiguous 3.[address] images of the chest were acquired with administration of intravenous contrast. Coronal and sagittal reconstructions were obtained. 94 ml optiray 320 was administered for post contrast images. One of the following dose reduction techniques were utilized for this exam: Automated exposure control, adjustment of the mA and/or kV according to patient size, and use of iterative reconstruction. CTDI 19.95 mGy, DLP 723.67 mGy-cm COMPARISON: Xray dated 08/26/2024 FINDINGS: Lungs: Minimal apical reticulation likely old granulomatous Upper and lower lung lobes centrilobular emphysematous changes Lower lobes atelectatic plates in the peribronchial thickening. No definite pulmonary consolidation No pleural effusion or pleural thickening. Mediastinum: No mediastinal mass or abnormal lymphadenopathy. Normal appearance of the thymus. Hilar Structures: Normal size and configuration, no enlargement. Heart and Great Vessels: Normal heart size and configuration. No pericardial effusion. Normal caliber and course of the thoracic aorta and other great vessels. No significant atherosclerosis or aneurysm. Normal enhancement of the great vessels post-contrast. Pulmonary Arteries: No evidence of pulmonary embolism. Normal size and course of the pulmonary arteries. Esophagus: Normal course and caliber. No masses or dilatation. Bones: Comminuted fracture of lateral segment of the left third rib with mild displacement of the fractured segments and mild left pleural reaction. No related pulmonary contusion Other nondisplaced fractures of the anterior lateral segments of the left fifth and sixth ribs Advanced thoracic spondylosis with mild reduced height/wedging of the mid-thoracic vertebrae without complete vertebral collapse Upper Abdomen: Visualized portions of the liver, spleen, pancreas, adrenal glands, and kidneys are normal. No abnormalities were noted in the visualized upper abdominal organs. Thyroid: Normal size and morphology. No nodules or masses. IMPRESSION: 1. Comminuted fracture of lateral segment of the left third rib with mild displacement of the fractured segments and mild left pleural reaction. No related pulmonary contusion. 2. Other nondisplaced fractures of the anterior lateral segments of the left fifth and sixth ribs. 3. Upper and lower lung lobes centrilobular emphysematous changes. 4. Bilateral lower lobe atelectatic changes. 5. No signs of acute inflammatory changes. 6. Advanced thoracic spondylosis with mild reduced height/wedging of the mid-thoracic vertebrae without complete vertebral collapse. 7. Clinical correlation is advised. Electronically signed by Ny Mars 08-27-2024 06:03 AM Abdomen/Pelvis CT 08/27/24 06:11 EXAM: CT abd pelvis wo con CLINICAL HISTORY: Fall, diffuse pain. TECHNIQUE: Non-contrast CT of the abdomen and pelvis was performed, with the following protocol: axial images, and reconstructed coronal and sagittal images. One of the following dose reduction techniques was utilized for this exam: Automated exposure control, adjustment of the mA and/or kV according to patient size, and use of iterative reconstruction. COMPARISON: Comparison is made with prior study dated 12/05/2017 FINDINGS: Abdomen: Liver: Enlarged in size (LS-16.9cm). Normal shape, and density. No focal lesions, cysts, or masses were identified. Gallbladder and Biliary System: The gallbladder is normal in size and shape. No wall thickening, pericholecystic fluid, or gallstones were identified. Pancreas: Pancreatic head, body, and tail are visualized and appear normal in size and density. No pancreatic masses or calcifications were noted. Spleen: Normal in size, shape, and density. No splenic lesions or masses were identified. Appendix: The appendix is normal in size without danny appendiceal fat stranding, and without an appendicolith. No evidence of appendiceal abscess or perforation. Kidneys and Adrenal Glands: Both kidneys are normal in size, shape, and position. Cortical thickness is within normal limits. No renal calculi or hydronephrosis. Bilateral renal cysts, largest at left side measuring 25x23.3mm Excreted contrast seen in collecting system (sequel of contrast-enhanced CT chest study done earlier) Right adrenal lesion measuring 16.4x13.3mm Left adrenal gland is unremarkable. Abdominal Aorta and Vessels: The abdominal aorta and major branches are patent without evidence of an aneurysm or significant atherosclerosis. Pelvis: Urinary Bladder: Normal in contour and wall thickness. No intraluminal lesions. Prostate: calcific foci seen Peritoneal and Retroperitoneal Structures: No free fluid or abnormal fluid collections were identified within the abdomen or pelvis. No lymphadenopathy was noted. Bowel: The visualized bowel loops are normal in caliber and appearance. No evidence of bowel obstruction or wall thickening. Bones and Soft Tissues: Lumbar spondylosis seen as sclerosed end plates, schmorl nodes and reduced disc height with facet joint arthropathy No fractures or abnormal masses were identified. cuts taken through base of the lung shows bilateral parenchymal bands IMPRESSION: 1. No intraperitoneal-free or localized collection 2. No intraperitoneal or retroperitoneal hematomas seen 3. No fractures or abnormal masses were identified. 4. Mild hepatomegaly 5. Bilateral renal cysts, largest at left side measuring 25x23.3mm 6. Right adrenal lesion measuring 16.4x13.3mm 7. No interval changes Electronically signed by Ny Mars 08-27-2024 07:24 AM Supervising Physician Co-Signing Physician Notes Patient seen and examined at bedside independently. Discussed with above provider. Patient was brought to the hospital after he was found down on the ground. He was found to have left-sided rib fractures; he was also found to be intoxicated. Reported suicidal ideation on presentation as per report. When patient was seen at bedside; he was alert oriented x 3. He denied any suicidal ideation. He reported pain in her left chest. He did not appear to be intoxicated or being in withdrawal. Pain control with Tylenol, lidocaine patch, incentive spirometry for the rib fractures. On alcohol withdrawal protocol with gabapentin and Ativan. Behavior health liaison consulted given reported suicidal ideation I spent a total of 30 minutes coordinating, documenting, and providing care for this patient excluding time spent in the performance of separately billed services. 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
--- NOTE | 2024-08-27 09:40 | Electrocardiogram Report ---
Test Reason : Blood Pressure : */* mmHG Vent. Rate : 70 BPM Atrial Rate : * BPM P-R Int : * ms QRS Dur : 100 ms QT Int : 360 ms P-R-T Axes : * 15 38 degrees QTcB Int : 388 ms Poor data quality, interpretation may be adversely affected Normal sinus rhythm Septal infarct , age undetermined Abnormal ECG No previous ECGs available Confirmed by Laith Chun ([id number]) on 08/27/2024 9:39:31 AM Referred By: REFERRED SELF Confirmed By: Laith Chun
[2024-08-27] MEDS ORDERED: ACETAMINOPHEN 325 MG TAB PO PRN ×2 (10:09→10:34)
[2024-08-27] MEDS ORDERED: GABAPENTIN 800MG ALCOHOL WITHDRAWAL LOAD PO STA (10:09)
[2024-08-27] MEDS ORDERED: Ativan IV Alcohol Withdrawal--Active Protocol IV PRN (10:09)
[2024-08-27] MEDS ORDERED: LORazepam 2 MG/1 ML VIAL IV PRN ×3 (10:09)
[2024-08-27] MEDS ORDERED: INFLUENZA VACC TS2024-25(65y+)/PF (IIV3) 0.5mL Syr IM ONE (10:23)
[2024-08-27] MEDS ORDERED: GLUCAGON FOR INJ 1 MG VIAL SQ PRN (10:33)
[2024-08-27] MEDS ORDERED: DEXTROSE 50% 50 ML SYRINGE IV PRN (10:33)
[2024-08-27] MEDS ORDERED: CARBOHYDRATES FOR HYPOGLYCEMIA PO PRN (10:33)
[2024-08-27] MEDS ORDERED: GLUCOSE 10 TAB/TUBE PO PRN (10:33)
[2024-08-27] MEDS ORDERED: GLUCOSE 40% GEL 15 GM TUBE PO PRN (10:33)
[2024-08-27 11:03] LABS: Magnesium 1.4 mg/dl (1.7-2.4); Phosphorus 2.5 mg/dl (2.5-4.9)
[2024-08-27 11:08] LABS: Estimated Average Glucose 128 mg/dl; Hemoglobin A1C 6.1 % (4.5-5.6)
[2024-08-27] MEDS: THIAMINE HCL 100 MG in SYRINGE 9 ML IV SCH (11:42)
[2024-08-27] MEDS: GABAPENTIN 400 MG CAP PO ONE (11:42)
[2024-08-27] MEDS: INSULIN ASPART PER UNIT CHARGE SC SCH (13:04)
[2024-08-27] MEDS: ACETAMINOPHEN 325 MG TAB PO SCH (13:04)
[2024-08-27] MEDS: GABAPENTIN 400 MG CAP PO SCH (18:09)
[2024-08-27] MEDS: METHOCARBAMOL 500 MG TABLET PO PRN (21:10)
[2024-08-28] MEDS: MAGNESIUM SULFATE / D5W 1 GM/100 ML BAG IV SCH (00:57)
[2024-08-28] MEDS: GABAPENTIN 400 MG CAP PO SCH (06:08)
[2024-08-28 06:55] LABS: Basophils # (auto) 0.06 K/uL (0.00-0.20); Basophils % (auto) 0.8 %; Eosinophils # (auto) 0.09 K/uL (0.00-0.50); Eosinophils % (auto) 1.2 %; Hemoglobin 13.1 g/dl (14.0-18.0); Immature Granulocytes # (auto) 0.04 K/uL (0.01-0.20); Immature Granulocytes % (auto) 0.5 %; Lymphocytes # (auto) 1.87 K/uL (1.20-3.40); Mean Corpuscular Hemoglobin 28.7 pg (25.0-34.0); Mean Corpuscular Hgb Conc 33.6 g/dL (32.0-36.0); Mean Corpuscular Volume 85.5 fL (80.0-100.0); Mean Platelet Volume 9.9 fL (9.4-12.4); Monocytes # (auto) 0.77 K/uL (0.11-0.59); Monocytes % (auto) 9.9 %; Neutrophils # (auto) 4.97 K/uL (1.40-6.50); Neutrophils % (auto) 63.6 %; Platelet Count 152 K/uL (130-400); RDW Coefficient of Variation 14.6 % (11.5-14.5); RDW Standard Deviation 45.4 fL (36.4-46.3); Red Blood Count 4.56 M/uL (4.70-6.10)
[2024-08-28 07:14] LABS: Albumin Globulin Ratio 1.7 (0.9-2); Albumin Level 3.8 gm/dl (3.4-5.0); BUN Creatinine Ratio 16.1 (10-20); Bilirubin,Total 2.2 mg/dl (0.2-1.0); Creatinine Clr Calc Pharmacy 79.1 ml/min; Globulin 2.2 gm/dl (2.5-4.0)
--- NOTE | 2024-08-28 07:44 | Hospitalist Progress Note ---
Date of Service August 28, 2024 Assessment & Plan (1) CHI (closed head injury): (2) Alcohol intoxication: (3) Tobacco abuse: (4) Alcohol abuse: (5) Depression with anxiety: (6) HLD (hyperlipidemia): (7) Diabetes: (8) Hypertension: Plan The patient is a 63-year-old male with a past medical history of HTN, HLD, alcohol abuse, tobacco use, DM2 who presents to the ED on 08/27/2024 s/p mechanical fall found to have left-sided rib fractures and alcohol intoxication Assessment and plan: Mechanical fall Left-sided rib fractures, 3rd, 5th, 6th. 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 " Denies any suicidal thoughts or plans at this time Similar episode noted in 2019, 1:1 and psych consult ordered - Pt seen by psychiatry - ok to discontinue 1:1 Alcohol abuse and intoxication: Alcohol level 336 on admission, patient reports to drinking at least 6 drinks a week Alcohol cessation recommended, alcohol withdrawal protocol with gabapentin and Ativan Monitor closely, telemetry monitoring - no signs of etoh withdrawal at this time Hx DM2: Current A1c 6.1% hold metformin/Actos while inpatient, add SSI Hx HTN/HLD: Continue HCTZ, lisinopril, statin Full code DVT prophylaxis: SCDs Admission and Anticipated Discharge Date Admission Date: August 27, 2024 Subjective Pt seen in follow up alcohol intox., fall, rib fractures, poss. SI Sitting up in bed in NAD Overall feeling well, some chest discomfort from rib fx 1:1 sitter present - seen by psych ok to discontinue Pt denies any shortness of breath, or feeling dizzy No abd. pain, n/v Review of Systems Review of Systems: All systems reviewed & are unremarkable except as noted in Subjective Physical Exam Physical Exam: Constitutional: WD/WN, vitals as a cristina Eyes: PERRL, conjunctiva e normal, anicteri c sclerae ENMT: external ear and n ose normal Neck: supple Respiratory: normal respiratory effort, lungs aura ar to auscultation Cardiovascular: RRR, no murmur, no edema Chest (Breasts): Chest: normal insp ection of chest (l lateral rib pain ) Gastrointestinal ( Abdomen): normal bowel sound s, soft, nontender Musculoskeletal: moves extremities Skin: no rashes, warm an d dry Neurologic: PERRL, EOMI, no fa ce palsy, no dysar thria, moves extre mities Psychiatric: A+Ox3, euthymic af fect Results & Data Results & Data Vital Signs (Past 12 Hours) Vital Signs Temp Pulse Pulse Resp BP Pulse Ox O2 Del Method 08/28/24 06:54 36.6 C 69 18 138/71 95 Room Air 08/28/24 05:20 36.9 C 62 16 158/76 H 95 Room Air 08/27/24 23:18 36.8 C 71 17 162/78 H 95 Room Air 08/27/24 21:45 69 Laboratory Results 08/28/24 08/28/24 08/27/24 Range/Units 07:28 06:22 20:06 WBC 7.80 (4.8-10.8) K/ul RBC 4.56 L (4.70-6.10) M/uL Hgb 13.1 L (14.0-18.0) g/dl Hct 39.0 L (42.0-52.0) % MCV 85.5 (80.0-100.0) fL MCH 28.7 (25.0-34.0) pg MCHC 33.6 (32.0-36.0) g/dL RDW Std Deviation 45.4 (36.4-46.3) fL RDW Coeff of Lindy 14.6 H (11.5-14.5) % Plt Count 152 (130-400) K/uL MPV 9.9 (9.4-12.4) fL Immature Gran % (Auto) 0.5 % Neut % (Auto) 63.6 % Lymph % (Auto) 24.0 % [place] % (Auto) 9.9 % Eos % (Auto) 1.2 % Baso % (Auto) 0.8 % Neut # (Auto) 4.97 (1.40-6.50) K/uL Lymph # (Auto) 1.87 (1.20-3.40) K/uL [place] # (Auto) 0.77 H (0.11-0.59) K/uL Eos # (Auto) 0.09 (0.00-0.50) K/uL Baso # (Auto) 0.06 (0.00-0.20) K/uL Immature Gran # (Auto) 0.04 (0.01-0.20) K/uL Sodium 139 (136-145) mmol/L Potassium 4.0 D (3.5-5.1) mmol/L Chloride 109 H (98-107) mmol/L Carbon Dioxide 25 (21-32) mmol/L Anion Gap 5 (3-11) BUN 14 (6-23) mg/dl Creatinine 0.87 (0.6-1.4) mg/dl Est Cr Clr Drug Dosing 79.1 ml/min eGFR 95.76 BUN/Creatinine Ratio 16.1 (10-20) Glucose 117 H (70-99(Fasting)) mg/dl POC Glucose 121 H 94 (70-99) mg/dl Estimat Average Glucose mg/dl Hemoglobin A1c (4.5-5.6) % Calcium 9.0 (8.6-10.3) mg/dl Phosphorus (2.5-4.9) mg/dl Magnesium (1.7-2.4) mg/dl Total Bilirubin 2.2 H D (0.2-1.0) mg/dl AST 14 (13-39) U/L ALT 10 (7-52) U/L Alkaline Phosphatase 58 (34-104) U/L Total Protein 6.0 (6.0-8.3) gm/dl Albumin 3.8 (3.4-5.0) gm/dl Globulin 2.2 L (2.5-4.0) gm/dl Albumin/Globulin Ratio 1.7 (0.9-2) 08/27/24 08/27/24 08/27/24 Range/Units 16:36 11:34 10:28 WBC (4.8-10.8) K/ul RBC (4.70-6.10) M/uL Hgb (14.0-18.0) g/dl Hct (42.0-52.0) % MCV (80.0-100.0) fL MCH (25.0-34.0) pg MCHC (32.0-36.0) g/dL RDW Std Deviation (36.4-46.3) fL RDW Coeff of Lindy (11.5-14.5) % Plt Count (130-400) K/uL MPV (9.4-12.4) fL Immature Gran % (Auto) % Neut % (Auto) % Lymph % (Auto) % [place] % (Auto) % Eos % (Auto) % Baso % (Auto) % Neut # (Auto) (1.40-6.50) K/uL Lymph # (Auto) (1.20-3.40) K/uL [place] # (Auto) (0.11-0.59) K/uL Eos # (Auto) (0.00-0.50) K/uL Baso # (Auto) (0.00-0.20) K/uL Immature Gran # (Auto) (0.01-0.20) K/uL Sodium (136-145) mmol/L Potassium (3.5-5.1) mmol/L Chloride (98-107) mmol/L Carbon Dioxide (21-32) mmol/L Anion Gap (3-11) BUN (6-23) mg/dl Creatinine (0.6-1.4) mg/dl Est Cr Clr Drug Dosing ml/min eGFR BUN/Creatinine Ratio (10-20) Glucose (70-99(Fasting)) mg/dl POC Glucose 105 H 132 H (70-99) mg/dl Estimat Average Glucose 128 mg/dl Hemoglobin A1c 6.1 H (4.5-5.6) % Calcium (8.6-10.3) mg/dl Phosphorus 2.5 (2.5-4.9) mg/dl Magnesium 1.4 L (1.7-2.4) mg/dl Total Bilirubin (0.2-1.0) mg/dl AST (13-39) U/L ALT (7-52) U/L Alkaline Phosphatase (34-104) U/L Total Protein (6.0-8.3) gm/dl Albumin (3.4-5.0) gm/dl Globulin (2.5-4.0) gm/dl Albumin/Globulin Ratio (0.9-2) Medications Administered Current Inpatient Medications Acetaminophen (Acetaminophen 325 Mg Tab) 650 mg PO Q6H [facility] Stop: 09/26/24 11:59 Last Admin: 08/28/24 14:27 Dose: Not Given Atorvastatin Calcium (Atorvastatin 40 Mg Tab) 40 mg PO DAILY [facility] Stop: 03/01/25 08:59 Last Admin: 08/28/24 09:58 Dose: 40 mg Dextrose (Dextrose 50% 50 Ml Syringe) 25 - 50 ml IV UD PRN; Protocol PRN Reason: Hypoglycemia Protocol Stop: 09/26/24 10:32 Gabapentin (Gabapentin 400 Mg Cap) 400 mg PO Q24H [facility] Stop: 08/30/24 22:01 Gabapentin (Gabapentin 400 Mg Cap) 400 mg PO Q8H [facility] Stop: 08/28/24 22:01 Last Admin: 08/28/24 06:08 Dose: 400 mg Gabapentin (Gabapentin 400 Mg Cap) 400 mg PO Q12H [facility] Stop: 08/29/24 22:01 Glucagon (Glucagon For Inj 1 Mg Vial) 1 mg SQ UD PRN; Protocol PRN Reason: Hypoglycemia Protocol Stop: 09/26/24 10:32 Glucose (Glucose 40% Gel 15 Gm Tube) 15 - 30 gm PO UD PRN; Protocol PRN Reason: Hypoglycemia Protocol Stop: 09/26/24 10:32 Glucose (Glucose 10 Tab/Tube) 4 - 8 tab PO UD PRN; Protocol PRN Reason: Hypoglycemia Protocol Stop: 09/26/24 10:32 Hydrochlorothiazide (Hydrochlorothiazide 25 Mg Tab) 25 mg PO DAILY [facility] Stop: 09/27/24 08:59 Last Admin: 08/28/24 09:58 Dose: 25 mg Thiamine HCl 100 mg/ Syringe 10 mls @ 2 mls/min IV QAM [facility] Stop: 09/26/24 10:29 Last Admin: 08/28/24 09:59 Dose: 2 mls/min Insulin Aspart (Insulin Aspart Per Unit Charge) 0 units SC ACHS [facility] Stop: 09/26/24 11:29 Last Admin: 08/28/24 13:31 Dose: Not Given Lidocaine (Lidocaine 5% 1 Patch) 1 patch TD QAM [facility] Stop: 09/27/24 08:59 Last Admin: 08/28/24 10:00 Dose: 1 patch Lisinopril (Lisinopril 40 Mg Tab) 40 mg PO DAILY [facility] Stop: 09/27/24 08:59 Last Admin: 08/28/24 09:58 Dose: 40 mg Lorazepam (Lorazepam 2 Mg/1 Ml Vial) 1 mg IV UD PRN; Protocol PRN Reason: EtOH Withdrawal AWSS Score 6,7 Stop: 09/26/24 10:08 Lorazepam (Lorazepam 2 Mg/1 Ml Vial) 2 mg IV UD PRN; Protocol PRN Reason: EtOH Withdrawal AWSS Score 8,9 Stop: 09/26/24 10:08 Lorazepam (Lorazepam 2 Mg/1 Ml Vial) 3 mg IV ONCE PRN; Protocol PRN Reason: EtOH Withdrawal AWSS Score 10+ Methocarbamol (Methocarbamol 500 Mg Tablet) 500 mg PO TID PRN PRN Reason: pain Stop: 09/26/24 08:59 Last Admin: 08/27/24 21:10 Dose: 500 mg Miscellaneous (Remove Lidoderm Patch) 1 each N/A DAILY@2100 [facility] Stop: 09/26/24 20:59 Last Admin: 08/27/24 21:11 Dose: 1 each Miscellaneous (Remove Lidoderm Patch) 1 each N/A DAILY@2100 [facility] Stop: 09/26/24 20:59 Last Admin: 08/27/24 21:11 Dose: 1 each Miscellaneous (Carbohydrates For Hypoglycemia ) 15 - 30 gm PO UD PRN PRN Reason: Hypoglycemia Protocol Stop: 09/26/24 10:32 Polyethylene Glycol (Polyethylene (Miralax) 17 Gm Pack) 17 gm PO DAILY PRN PRN Reason: Constipation Stop: 09/27/24 10:24 (7) Diabetes Diabetes mellitus complication status: with other specified complication Diabetes 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
[2024-08-28 09:09] LABS: Magnesium 1.9 mg/dl (1.7-2.4)
[2024-08-28] MEDS: lisinopril 40 MG TAB PO SCH (09:58)
[2024-08-28] MEDS: hydroCHLOROthiazide 25 MG TAB PO SCH (09:58)
[2024-08-28] MEDS: ATORVASTATIN 40 MG TAB PO SCH (09:58)
[2024-08-28] MEDS: LIDOCAINE 5% 1 PATCH TD SCH (10:00)
--- NOTE | 2024-08-28 10:07 | Electrocardiogram Report ---
Test Reason : Blood Pressure : */* mmHG Vent. Rate : 62 BPM Atrial Rate : * BPM P-R Int : * ms QRS Dur : 88 ms QT Int : 366 ms P-R-T Axes : * -10 35 degrees QTcB Int : 371 ms Normal sinus rhythm Low voltage QRS Abnormal ECG When compared with ECG of 27-Aug-2024 00:30, Criteria for Septal infarct are no longer Present Confirmed by Laith Chun ([id number]) on 08/28/2024 10:07:32 AM Referred By: REFERRED SELF Confirmed By: Laith Chun
--- NOTE | 2024-08-28 14:40 | XRay Report ---
XR chest 1V portable CLINICAL HISTORY: follow up prominent bronchovascular markings COMPARISON STUDY: 08/27/2024 FINDINGS: Allowing for a reverse lordotic positioning on this single view portable exam, the bronchov ascular markings and no longer appear prominent. There is minor fibrotic stranding versus nonspecific discoid atelectasis at the left lung base. IMPRESSION: Bronchovascular prominence not reproducible. Minor discoid atelectasis versus fibrotic s tranding in the left lung base. ACT 112: Negative or not required by law. Electronically signed by: Felecia Orlando M.D. 08/28/2024 2:39 PM
[2024-08-28] MEDS ORDERED: ALBUT/IPRATROP 3MG/0.5MG NEB 3 ML VIAL NEB PRN (22:03)
[2024-08-28] MEDS: ALBUT/IPRATROP 3MG/0.5MG NEB 3 ML VIAL NEB STA (22:25)
[2024-08-29 07:37] LABS: Hematocrit (blood only) 40.2 % (42.0-52.0); Hemoglobin 13.4 g/dl (14.0-18.0); Mean Corpuscular Hemoglobin 28.9 pg (25.0-34.0); Mean Corpuscular Hgb Conc 33.3 g/dL (32.0-36.0); Mean Corpuscular Volume 86.6 fL (80.0-100.0); Mean Platelet Volume 10.2 fL (9.4-12.4); Platelet Count 149 K/uL (130-400); RDW Coefficient of Variation 14.5 % (11.5-14.5); Red Blood Count 4.64 M/uL (4.70-6.10); White Blood Count 6.89 K/ul (4.8-10.8)
[2024-08-29 07:38] LABS: BUN Creatinine Ratio 18.3 (10-20); Calcium 9.4 mg/dl (8.6-10.3); Magnesium 1.6 mg/dl (1.7-2.4); Phosphorus 3.4 mg/dl (2.5-4.9); Potassium 4.3 mmol/L (3.5-5.1)
[2024-08-29] MEDS: MAGNESIUM OXIDE 400 MG TAB PO SCH (08:19)
[2024-08-29] MEDS: POLYETHYLENE (MIRALAX) 17 GM PACK PO PRN (08:19)
[2024-08-29] MEDS: GABAPENTIN 400 MG CAP PO SCH (08:20)
--- NOTE | 2024-08-29 09:35 | Discharge Summary ---
Date of Service August 29, 2024 Admission HPI Per Admitting Provider This is a 59-year-old male with significant past medical history of T2DM, HTN, HLD, depression with anxiety, tobacco abuse, alcohol abuse who presents to ED on 08/27/2024 after EMS was called by bystanders after patient fell outside of a local establishment. Patient was intoxicated on arrival to the ER. He is a poor historian. Reports drinking every few months, although reported drinking multiple times a week to the ER physician. He does not remember the fall. Denies any recent respiratory illness. Denies any nausea/vomiting/abdominal pain. Does report some left-sided rib pain where fractures were noted on imaging. Denies any shortness of breath or chest pain. Denies any fever/chills. Pt reports smoking a pack of cigarettes every 4 days. Denies any other drug use aside from marijuana. Patient was admitted in 2019 with alcohol intoxication/withdrawal and similar complaints. On arrival to the ED, labs remarkable for potassium 3.3, Urine tox screen positive for marijuana, alcohol level [address] showed minimal left maxillary sinusitis Cervical spine CT negative for acute fractures Chest x-ray showed chronic bronchitis/pulmonary edema Head CT was negative for any acute changes Pelvics x-ray was negative for any acute fractures Left shoulder x-ray negative for acute fracture, Chest CT showed comminuted fracture of the lateral segment of the left third rib with mild displacement of the fracture segments and mild pleural reaction, no pulmonary contusion Nondisplaced fractures noted of the anterior lateral segments of the left fifth and sixth ribs Abdomen/pelvis CT negative for anything acute EKG showed accelerated junctional rhythm The patient will be admitted for further management of rib fractures and alcohol intoxication Admission Exam Per Admitting Provider Constitutional: WD/WN, vitals as above Eyes: PERRL, conjunctivae normal, anicteric sclerae ENMT: external ear and nose normal, oropharynx normal Neck: trachea midline, no thyromegaly Respiratory: normal respiratory effort, lungs clear to auscultation (wheezing in b/l bases ) Cardiovascular: RRR, no murmur, no edema Chest (Breasts): Chest: normal inspection of chest (l lateral rib pain ) Gastrointestinal (Abdomen): normal bowel sounds, soft, nontender, no hepatosplenomegaly Musculoskeletal: no cyanosis or clubbing, extremities motor strength 5/5 Skin: no rashes, warm and dry Neurologic: PERRL, EOMI, accommodation nl, no face palsy, no dysarthria Psychiatric: A+Ox3, euthymic affect Lymphatic: no cervical or axillary lymphadenopathy Principal Diagnosis Fall Alcohol intoxication Rib fractures Discharge Exam Constitutional: WD/WN, vitals as above Eyes: PERRL, conjunctivae normal, anicteric sclerae ENMT: external ear and nose normal Neck: supple Respiratory: normal respiratory effort, lungs clear to auscultation Cardiovascular: RRR, no murmur, no edema Chest (Breasts): Chest: normal inspection of chest (l lateral rib pain ) Gastrointestinal (Abdomen): normal bowel sounds, soft, nontender Musculoskeletal: moves extremities Skin: no rashes, warm and dry Neurologic: PERRL, EOMI, no face palsy, no dysarthria, moves extremities Psychiatric: A+Ox3, euthymic affect Discharge Data Allergies Allergy/AdvReac Type Severity Reaction Status Date / Time No Known Allergies Allergy Verified 04/20/20 06:48 Consultations 08/27/24 08:34 ED Decision to Admit Stat 08/27/24 11:46 Consult Behavioral Health Liaison Routine Ordered Studies 08/26/24 23:52 CT facial bones wo con Stat FINDINGS: Minimal left maxillary sinusitis. No acute facial fractures. Rest of paranasal sinuses and mastoid air cells are clear. The globes, optic nerves, extraocular muscles and retro-orbital fat are grossly unremarkable. Reformatted imaging demonstrates intact roof and floor of the orbits. Included portions of the mandible are intact. The included intracranial substances and airway are unremarkable. IMPRESSION: Minimal left maxillary sinusitis. 08/26/24 23:53 CT cervical spine wo con Stat FINDINGS: The normal cervical lordotic curvature is maintained. Degenerative changes involving cervical spine in the form of multilevel marginal osteophytes, disc space reduction and facetal arthrosis. Cervical vertebral bodies are normal in height and alignment, with no evidence of fracture or subluxation. Lateral masses of C1 are symmetrical, and the dens is intact. Prevertebral soft tissues are not widened. The remaining suprahyoid and infrahyoid soft tissues in the neck are unremarkable. Posterior uncovertebral arthrosis is noted at C3-C4 to C5-C6 levels, which indenting ventral thecal sac and causes bilateral neuroforaminal narrowing. Thyroid gland appears unremarkable. IMPRESSION: 1.No acute fracture or subluxation in the cervical spine. 2.Cervical spondylosis. CT head/brain wo con Stat 08/27/24 04:46 CT chest diagnostic w con Stat FINDINGS: Lungs: Minimal apical reticulation likely old granulomatous Upper and lower lung lobes centrilobular emphysematous changes Lower lobes atelectatic plates in the peribronchial thickening. No definite pulmonary consolidation No pleural effusion or pleural thickening. Mediastinum: No mediastinal mass or abnormal lymphadenopathy. Normal appearance of the thymus. Hilar Structures: Normal size and configuration, no enlargement. Heart and Great Vessels: Normal heart size and configuration. No pericardial effusion. Normal caliber and course of the thoracic aorta and other great vessels. No significant atherosclerosis or aneurysm. Normal enhancement of the great vessels post-contrast. Pulmonary Arteries: No evidence of pulmonary embolism. Normal size and course of the pulmonary arteries. Esophagus: Normal course and caliber. No masses or dilatation. Bones: Comminuted fracture of lateral segment of the left third rib with mild displacement of the fractured segments and mild left pleural reaction. No related pulmonary contusion Other nondisplaced fractures of the anterior lateral segments of the left fifth and sixth ribs Advanced thoracic spondylosis with mild reduced height/wedging of the mid-thoracic vertebrae without complete vertebral collapse Upper Abdomen: Visualized portions of the liver, spleen, pancreas, adrenal glands, and kidneys are normal. No abnormalities were noted in the visualized upper abdominal organs. Thyroid: Normal size and morphology. No nodules or masses. IMPRESSION: 1. Comminuted fracture of lateral segment of the left third rib with mild displacement of the fractured segments and mild left pleural reaction. No related pulmonary contusion. 2. Other nondisplaced fractures of the anterior lateral segments of the left fifth and sixth ribs. 3. Upper and lower lung lobes centrilobular emphysematous changes. 4. Bilateral lower lobe atelectatic changes. 5. No signs of acute inflammatory changes. 6. Advanced thoracic spondylosis with mild reduced height/wedging of the mid-thoracic vertebrae without complete vertebral collapse. 7. Clinical correlation is advised. 08/27/24 06:11 CT abd pelvis wo con Stat FINDINGS: Abdomen: Liver: Enlarged in size (LS-16.9cm). Normal shape, and density. No focal lesions, cysts, or masses were identified. Gallbladder and Biliary System: The gallbladder is normal in size and shape. No wall thickening, pericholecystic fluid, or gallstones were identified. Pancreas: Pancreatic head, body, and tail are visualized and appear normal in size and density. No pancreatic masses or calcifications were noted. Spleen: Normal in size, shape, and density. No splenic lesions or masses were identified. Appendix: The appendix is normal in size without danny appendiceal fat stranding, and without an appendicolith. No evidence of appendiceal abscess or perforation. Kidneys and Adrenal Glands: Both kidneys are normal in size, shape, and position. Cortical thickness is within normal limits. No renal calculi or hydronephrosis. Bilateral renal cysts, largest at left side measuring 25x23.3mm Excreted contrast seen in collecting system (sequel of contrast-enhanced CT chest study done earlier) Right adrenal lesion measuring 16.4x13.3mm Left adrenal gland is unremarkable. Abdominal Aorta and Vessels: The abdominal aorta and major branches are patent without evidence of an aneurysm or significant atherosclerosis. Pelvis: Urinary Bladder: Normal in contour and wall thickness. No intraluminal lesions. Prostate: calcific foci seen Peritoneal and Retroperitoneal Structures: No free fluid or abnormal fluid collections were identified within the abdomen or pelvis. No lymphadenopathy was noted. Bowel: The visualized bowel loops are normal in caliber and appearance. No evidence of bowel obstruction or wall thickening. Bones and Soft Tissues: Lumbar spondylosis seen as sclerosed end plates, schmorl nodes and reduced disc height with facet joint arthropathy No fractures or abnormal masses were identified. cuts taken through base of the lung shows bilateral parenchymal bands IMPRESSION: 1. No intraperitoneal-free or localized collection 2. No intraperitoneal or retroperitoneal hematomas seen 3. No fractures or abnormal masses were identified. 4. Mild hepatomegaly 5. Bilateral renal cysts, largest at left side measuring 25x23.3mm 6. Right adrenal lesion measuring 16.4x13.3mm 7. No interval changes Hospital Course (1) CHI (closed head injury): (2) Alcohol intoxication: (3) Tobacco abuse: (4) Alcohol abuse: (5) Depression with anxiety: (6) HLD (hyperlipidemia): (7) Diabetes: (8) Hypertension: Plan The patient is a 63-year-old male with a past medical history of HTN, HLD, alcohol abuse, tobacco use, DM2 who presents to the ED on 08/27/2024 s/p mechanical fall found to have left-sided rib fractures and alcohol intoxication Assessment and plan: Mechanical fall Left-sided rib fractures, 3rd, 5th, 6th. Pain control, I-S, Robaxin/lidocaine patch No hypoxia noted - will obtain follow up CXR - encourage IS - PT/OT - ok to return home Depression with suicidal ideation: ADVISORY INTERN, patient reported he "did not want to live any more " Denies any suicidal thoughts or plans at this time Similar episode noted in 2019, 1:1 and psych consult ordered - Pt seen by psychiatry - ok to discontinue 1:1 Alcohol abuse and intoxication: Alcohol level 336 on admission, patient reports to drinking at least 6 drinks a week Alcohol cessation recommended, alcohol withdrawal protocol with gabapentin and Ativan Monitor closely, telemetry monitoring - no signs of etoh withdrawal at this time Hx DM2: Current A1c 6.1% hold metformin/Actos while inpatient, add SSI Hx HTN/HLD: Continue HCTZ, lisinopril, statin Total Time Total Time Spent Total Time Spent (In Minutes): 40 Discharge Plan Discharge Items Patient Disposition: Home - Self-Care Reason For Visit: RIB FX, ALCOHOL INTOX Discharge Diagnosis: Fall Alcohol intoxication Rib fractures Activity: Per Instructions section Non-emergency contact: Primary Care Provider Call non-emergency contact if: you have any medication questions and your symptoms worsen Follow-up/Referrals: Melody Martel DO [Primary Care Provider] - (Date & Time 09/02/2024 3:00 PM Provider: Melody Martel DO [facility] ) Diet: Regular Addtl Attending Provider Instructions: Follow up with your primary care physician, the appointment was scheduled for you for 09/02/2024. Continue using incentive spirometer. For pain, take tylenol 1,000 mg three times a day. You can also use lidocaine patches, these are available over the counter. For more severe pain, take methocarbamol. Pending Studies at Discharge: No Stand-Alone Forms: My [employer], Smoking Cessation Medications and DC Order Prescriptions: New methocarbamol 500 mg Tablet 500 mg PO TID PRN (Reason: pain) Qty: 7 0RF Continued metformin 1,000 mg Tablet 1,000 mg PO BID Qty: 60 0RF hydrochlorothiazide 25 mg Tablet 25 mg PO DAILY Qty: 30 0RF lisinopril 40 mg Tablet 40 mg PO DAILY Qty: 30 0RF atorvastatin [Lipitor] 40 mg tablet 40 mg PO DAILY pioglitazone [Actos] 30 mg tablet 30 mg PO DAILY Discharge Orders: Discharge Order (Routine); Ordered 08/29/24 Ordered By: Pool Narvaez/Other Patient Handouts: Managing Type 2 Diabetes Admission Data Admit Date/Time: 08/27/24 08:34 Attending Provider: Pool Santana Admit Provider: Jameel Devlin Primary Care Provider: Melody Martel Other Providers: Jameel Devlin
[2024-08-29 11:05] VITALS: PULSE 65; RESP 19; TEMP 98.1; O2SAT 98
[2024-08-29 12:08] VITALS: BP 150/73
[2024-08-29 12:18] LABS: Marijuana Quant, GCMS Urine 66 ng/mL (<5)
--- NOTE | 2024-08-29 14:39 | Electrocardiogram Report ---
Test Reason : Blood Pressure : */* mmHG Vent. Rate : 55 BPM Atrial Rate : 55 BPM P-R Int : 212 ms QRS Dur : 96 ms QT Int : 388 ms P-R-T Axes : 44 -20 42 degrees QTcB Int : 371 ms Sinus bradycardia with 1st degree A-V block Septal infarct , age undetermined Abnormal ECG When compared with ECG of 28-Aug-2024 05:16, Septal infarct is now Present Confirmed by Laith Chun ([id number]) on 08/29/2024 2:39:13 PM Referred By: REFERRED SELF Confirmed By: Laith Chun
[2024-08-30] MEDS ORDERED: GABAPENTIN 400 MG CAP PO SCH (22:00)
== END 2024-08-29 12:40 | disposition home or self-care (01) | DRG 184 ==
LOC: ED 23:16 → SUATTDRO 08-27 08:34 → 2S 08-27 08:34